=== PATIENT | male | born 1950 | race Caucasian/White ===

== ENCOUNTER → 2017-03-14 | Outpatient (CLI) | payer BC ==
[2017-03-14 13:10] LABS: Blood Urea Nitrogen 13 mg/dL (9-20); Non-African American GFR(MDRD) >60 (>60 ml/min/1.73 sqM)
== END | disposition home or self-care (01) ==
LOC: LABWHC1 12:22
PROVIDERS: ATTEND Physical Medicine & Rehabilitation
DX: N28.9 Disorder of kidney and ureter, unspecified (principal); M51.26 Other intervertebral disc displacement, lumbar region; M47.817 Spondylosis without myelopathy or radiculopathy, lumbosacral region; M54.17 Radiculopathy, lumbosacral region; K21.9 Gastro-esophageal reflux disease without esophagitis; M25.551 Pain in right hip; Z96.641 Presence of right artificial hip joint
CPT/HCPCS: 36415; 82565; 84520

== ENCOUNTER 2017-05-09 00:19 | Observation (INO) | payer BC, MEDICARE ==
[2017-05-09] MEDS ORDERED: ONDANSETRON 4 MG/2 ML VIAL IVP STA (00:40)
[2017-05-09] MEDS ORDERED: MORPHINE SULFATE 4 MG/ML SYRINGE IV STA (00:40)
[2017-05-09] MEDS ORDERED: ASPIRIN 81 MG CHEW PO STA (00:40)
[2017-05-09] MEDS ORDERED: SODIUM CHLORIDE 0.9% 1,000 ML IV STA (00:40)
[2017-05-09] MEDS ORDERED: NITROGLYCERIN OINT 1 INCH/GM PACKET TOPICAL STA (00:40)
--- NOTE | 2017-05-09 00:47 | ED ---
Chest Pain HPI - General Chief Complaint: Chest Pain Stated Complaint: CHEST PAIN Time Seen by Provider: 05/09/17 00:30 Source: patient Mode of arrival: ambulatory Limitations: no limitations - History of Present Illness Initial Comments: 66 years old gentleman has a history of GERD as well as ischemic heart disease he been feeling her chest pain, lost a few days and he also has a history of GERD for lost 30+ years and he felt some pressure in the chest chest pressure and the pain was radiating down his left arm he denies any weakness of the arm. Been nauseous but no vomiting no cold sweats complained about the chest pain gets worse with deep breaths. Denies any fever no chills. He had stent put in about 9 years ago and he had a stress test done about one half years ago - Related Data Home Medications Medication Instructions Recorded Confirmed Aspirin 81 mg PO DAILY 04/08/14 05/09/17 Hydrocodone/Acetaminophen [[place] 1 each PO Q6HR PRN 04/08/14 05/09/17 5-325] Metoprolol Tartrate [Lopressor] 25 mg PO BID 04/08/14 05/09/17 Pravastatin Sodium [Pravachol] 40 mg PO HS 04/08/14 05/09/17 Allergies Allergy/AdvReac Type Severity Reaction Status Date / Time Penicillins Allergy Rash/Hives Verified 05/09/17 00:31 Review of Systems ROS Statement: Those systems with pertinent positive or pertinent negative responses have been documented in the HPI. ROS Other: All systems not noted in ROS Statement are negative. EKG Findings - EKG Comments: EKG Findings:: EKG is sinus bradycardia with a ventricular rate of 59 MI interval is 186 QRS duration is 98 QT/QTc is 4:30/425) EKG reveals some T-wave inversion in lead [address] elevation or ST depression noticed in this EKG Past Medical History Past Medical History: Coronary Artery Disease (CAD), GERD/Reflux, Hypertension, Sleep Apnea/CPAP/BIPAP History of Any Multi-Drug Resistant Organisms: None Reported Past Surgical History: Back Surgery, Heart Catheterization With Stent, Joint Replacement Additional Past Surgical History / Comment(s): TOTAL RT HIP Past Anesthesia/Blood Transfusion Reactions: No Reported Reaction Date of Last Stent Placement:: 2006, X3 STENTS Past Psychological History: No Psychological Hx Reported Smoking Status: Former smoker Past Alcohol Use History: None Reported Past Drug Use History: None Reported General Exam - General Exam Comments Initial Comments: General: The patient is awake and alert, in no distress, and does not appear acutely ill. Skin: Skin is warm and dry and no rashes or lesions are noted. Eye: Pupils are equal, round and reactive to light, extra-ocular movements are intact; there is normal conjunctiva bilaterally. Ears, nose, mouth and throat: There are moist mucous membranes and no oral lesions. Neck: The neck is supple, there is no tenderness or JVD. Cardiovascular: There is a regular rate and rhythm. No murmur, rub or gallop is appreciated. Respiratory: To auscultation bilateral, no wheezing no rhonchi no distress respiratory cannon noticed Gastrointestinal: Tenderness noticed in the epigastric area Back: There is no tenderness to palpation in the midline. There is no obvious deformity. Musculoskeletal: Normal ROM, no tenderness, There is no pedal edema. There is no calf tenderness or swelling. No cords were appreciated. Neurological: CN II-XII intact, Cranial nerves III through XII are intact. There are no obvious motor or sensory deficits. Coordination appears grossly intact. Speech is normal. Psychiatric: Cooperative, appropriate mood & affect, normal judgment. Limitations: no limitations Course Vital Signs 05/09/17 05/09/17 05/09/17 00:26 01:02 01:34 Temperature 99.5 F Pulse Rate 58 L 59 L 58 L Respiratory 16 18 18 Rate Blood Pressure 169/82 153/69 141/69 O2 Sat by Pulse 94 L 99 96 Oximetry Reassessed at 135, his CBC, comprehensive metabolic panel, d-dimer, troponin, chest x-ray all over the normal range. He does have a history of coronary artery disease he had a stent placed 10 years ago. Status post was done 1.5 years ago and he is 66 considering that I think the prudent to put him in with serial cardiac markers and consult cardiology and admitted him under Dr. 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
[2017-05-09 00:52] LABS: Basophils % (A) 1 %; CH 31.1; CHCM 35.5; Eosinophils # (A) 0.2 k/uL (0-0.7); Eosinophils % (A) 3 %; HCT 41.4 % (39.0-53.0); HDW 2.69; HGB 14.8 gm/dL (13.0-17.5); Luc # (Auto) 0.24; Luc % (Auto) 4; Lymphocytes # (A) 2.1 k/uL (1.0-4.8); Lymphocytes % (A) 35 %; MCH 31.5 pg (25.0-35.0); MCHC 35.8 g/dL (31.0-37.0); MCV 88.2 fL (80.0-100.0); Mean Platelet Volume 7.1; Monocytes # (A) 0.6 k/uL (0-1.0); Monocytes % (A) 9 %; Neutrophils % (A) 49 %; WBC 6.1 k/uL (3.8-10.6); WBC (Perox) 5.67
--- NOTE | 2017-05-09 01:00 | XR ---
EXAM: XR Chest, 2 Views CLINICAL HISTORY: Chest pain with LT arm discomfort TECHNIQUE: Frontal and lateral views of the chest. COMPARISON: Chest x-ray 11/26/15 FINDINGS: Lungs: Unremarkable. No consolidation. Pleural space: Unremarkable. No pneumothorax. Heart: Unremarkable. No cardiomegaly. Mediastinum: Unremarkable. Bones/joints: Mild degenerative changes of the spine. IMPRESSION: No acute process.
[2017-05-09 01:05] LABS: ALT 38 U/L (21-72); AST 28 U/L (17-59); Alkaline Phosphatase 67 U/L (38-126); Anion Gap 10 mmol/L; Blood Urea Nitrogen 14 mg/dL (9-20); Calcium 9.9 mg/dL (8.4-10.2); Carbon Dioxide 23 mmol/L (22-30); Chloride 106 mmol/L (98-107); Glucose 94 mg/dL (74-99); Magnesium 2.2 mg/dL (1.6-2.3); Non-African American GFR(MDRD) >60 (>60 ml/min/1.73 sqM); Potassium 4.3 mmol/L (3.5-5.1); Sodium 139 mmol/L (137-145); Total Bilirubin 0.4 mg/dL (0.2-1.3)
[2017-05-09 01:09] LABS: Partial Thromboplastin Time 23.5 sec (22.0-30.0); Prothrombin Time 10.2 sec (9.0-12.0)
[2017-05-09 01:15] LABS: Creatine Kinase 89 U/L (55-170)
[2017-05-09 01:29] LABS: Creatine Kinase MB 0.8 ng/mL (0.0-2.4); Troponin I <0.012 ng/mL (0.000-0.034)
[2017-05-09] MEDS ORDERED: MORPHINE SULFATE 4 MG/ML SYRINGE IV PRN (01:50)
[2017-05-09] MEDS ORDERED: NITROGLYCERIN SL TABS 0.4 MG TAB SUBLINGUAL PRN (01:50)
[2017-05-09] MEDS ORDERED: PANTOPRAZOLE 40 MG/10 ML VIAL IVP STA (01:56)
[2017-05-09] MEDS ORDERED: SODIUM CHLORIDE 0.9% 1,000 ML IV SCH (02:00)
[2017-05-09 02:39] VITALS: BMI 38.0
[2017-05-09] MEDS: HYDROcodone/APAP 5-325MG 1 EACH TAB PO PRN ×2 (02:40→09:09)
[2017-05-09 07:41] LABS: Creatine Kinase 70 U/L (55-170)
[2017-05-09 07:54] LABS: Creatine Kinase MB 0.5 ng/mL (0.0-2.4); Troponin I <0.012 ng/mL (0.000-0.034)
[2017-05-09] MEDS ORDERED: METOPROLOL TARTRATE 25 MG TAB PO SCH (09:00)
[2017-05-09] MEDS ORDERED: ENOXAPARIN 40 MG/0.4 ML SYRINGE SQ SCH (09:00)
[2017-05-09] MEDS ORDERED: PANTOPRAZOLE 40 MG/10 ML VIAL IVP SCH (09:00)
--- NOTE | 2017-05-09 11:20 | NM ---
EXAMINATION TYPE: NM stress cardiolite complete DATE OF EXAM: 05/09/2017 COMPARISON: NONE HISTORY: TECHNIQUE: After the intravenous administration of 9.8 mCi Tc 99m Sestamibi - Rest images obtained 5 0 minutes post injection. The patient exercised using a DAKOTA protocol and 1 minute prior to peak e xercise was injected with 24.8 mCi Tc 99m Sestamibi - Stress images obtained 15 minutes post injectio n. FINDINGS: Targeted heart rate was achieved during performance of the study. 88% maximal heart rate was achieved with 9.5 METS and total exercise time of 8 minutes. Review of stress and rest SPECT images demonstrates mildly diminished perfusion along the inferolater al wall suspected to be in part due to attenuation artifact as there is normal augmentation on gated images. No suspicious area of reversibility seen. Gated analysis shows an estimated left ventricular ejection fraction of 69 %. TID is calculated at 0.77, within normal limits. IMPRESSION: Suspect attenuation artifact along the inferolateral wall. No convincing scintigraphic evidence for r eversible ischemia
[2017-05-09 11:32] VITALS: BP 119/64; PULSE 64; RESP 17; TEMP 98.4
--- NOTE | 2017-05-09 11:54 | P.STRESS ---
- Stress Test Note Stress Test Results/Findings: Exam Performed: NM stress cardiolite complete Exam Date: 05/09/17 Height: 6 ft Weight: 127.006 kg Protocol: sheron cardiolite Stage: 2 Duration of Exercise: 8:00 Resting Heart Rate: 69 Resting Blood Pressure: 144/86 Maximum Achieved Heart Rate: 137 Maximum Achieved Blood Pressure: 144/86 85% PMHR: 132 100% PMHR: 155 METS: 9.5 Technologist Comment: Stress Test Results/Findings: Baseline rhythm is sinus mechanism, poor R-wave progression. Patient exercised for 8 minutes reaching a peak rate of beats per minute which is equal to 88% maximum predicted heart rate. EKG monitoring revealed no evidence of diagnostic ST segment changes. Cardiolite was injected at peak exercise. Impression: 1. Average exercise tolerance with normal EKG response. 2. Nuclear images will be reported separately.
[2017-05-09 13:06] LABS: Creatine Kinase 72 U/L (55-170)
[2017-05-09 13:15] LABS: Creatine Kinase MB 0.5 ng/mL (0.0-2.4); Troponin I <0.012 ng/mL (0.000-0.034)
[2017-05-09] MEDS ORDERED: PRAVASTATIN SODIUM 40 MG TAB PO SCH (21:00)
--- NOTE | 2017-05-10 07:41 | HP ---
CHIEF COMPLAINT: Chest pain. HISTORY OF PRESENT ILLNESS: This is a 66 year old gentleman who presented to the emergency room in the middle of the night with complaint of pain. The patient says that he has some retrosternal chest pain. The patient has also pain in the left arm. The patient has been having this mild symptoms suggestive of reflux for the past couple of days, however, during the night today, he had some discomfort. He got up and he felt dizzy, lightheaded and some continued pain in the left arm. In view of this, he presented to the emergency room. He does have a history of coronary artery disease. The patient at present has been undergoing some treatments for his left arm pain which has been related to left shoulder labrum tear. The patient describes the pain as an achiness in the left arm which has not changed. He does have hsitory of gastroesophageal reflux. Not too long ago he had an EGD which did not reveal any significant pathology. The patient does have history of gastroesophageal reflux. He used to take Pravastat. The patient used to take Ranitidine and Chair Frame Builder recommended that he take a proton pump inhibitor. He feels that since then his symptoms are not as well controlled as when he was taking ( ). He has been recommended to take AcipHex 20 mg once daily which he feels is not helping as much as the Zantac used to help. The patient denied any other associated symptoms of diaphoresis, nausea, vomiting or any GI bleeding. He was evaluated in the emergency room and noted to have negative troponin, EKG old inferior wall IA. The patient is admitted to the hospital for further observation. Past medical history significant for hypertension for the past about 25 years, history of coronary artery disease diagnosed in 2004. He had stents placed in the RCA. He also has been told to have fatty liver in the past. Otherwise, history of gastroesophageal reflux and hiatal hernia. No other history of diabetes, liver disease, CVA, kidney disease, ulcers, TB, hepatitis or rheumatic fever. Past surgical history significant for right knee arthroscopy, right total hip arthroplasty, left lumbosacral micro discectomy, right undescended testicle. surgery. Personal history: The patient used to smoke two packs per day for about five years. Has not smoked for quite a few years now. ALLERGIES TO PENICILLIN WHICH CAUSES A RASH. Alcohol: None. Medications include: 1. Metoprolol 25 b.i.d. 2. Pravastatin 80 daily. 3. Lexapro 20 mg daily. 4. AcipHex 20 mg daily. SOCIAL HISTORY: The patient is , lives with his spouse. He does stay fairly active. FAMILY MEDICAL HISTORY: Father age 86 of CVA. Mother age 98 in adequate health. History of nephrolithiasis. No brothers. Sister age 63 with CA of the lung. Son 45 with history of bipolar disorder and alcohol dependence doing better. His daughter 42 in good health. REVIEW OF SYSTEMS: Neuro: Does have a headache from the nitro. Denies any dizziness, double vision, blurred vision. Did have symptoms of lightheadedness at the time when he had the chest pain during the night. Cardiac: Denies chest pain at present. Presenting symptoms of chest pain. GI: Denies any nausea , vomiting, abdominal pain, diarrhea, constipation, hematochezia, melena. Respiratory: Denies shortness of breath, cough or hemoptysis. Cardiac: Denies palpitations. : No symptoms of dysuria, hematuria, urgency or frequency. Extremities: Denies pain except of the left shoulder and the left arm. Constitutional: No fever or chills. Physical examination: Pleasant gentleman in no distress. Vital signs stable as recorded. Heent: Normocephalic. Neck no JVD. Chest is clear to auscultation and percussion. Cardiac normal S1, S2 with no murmurs, gallops or rubs. Abdomen soft, no palpable masses. Bowel sounds normal. No organomegaly. No abdominal bruits. Extremities revealed equal pulses in both upper and lower extremities. Good pulses. Adequate range of motion in all four extremities except for painful motion at the left shoulder. Laboratory assessment revealed EKG which showed inferior wall infarct. Cardiac enzymes normal. CBC is normal. Chemistry is normal range. ASSESSMENT: 1. Chest pain, probably gastroesophageal reflux related, rule out coronary artery disease. 2. Known history of coronary artery disease. 3. Left shoulder labrum tear. 4. Hyperlipidemia, on medical therapy. PLAN: The patient at present is stable. Continue present medical regimen. The patient will have a stress test done and stress Cardiolite. If it is negative, he will be discharged home. The patient recommended to go back on Zantac. The patient's condition discussed with the patient. Prognosis guarded. MTDD
[2017-05-10] MEDS ORDERED: ASPIRIN 325 MG TAB PO SCH (09:00)
--- NOTE | 2017-05-12 09:10 | DS ---
HISTORY OF PRESENT ILLNESS: This gentleman was admitted to the hospital after being seen in the emergency room with complaint of chest pain. The patient says the pain was also associated in the shoulder and left arm. The patient has been having pain in the left arm due to a tear of the labrum on that shoulder. The patient has been undergoing physical therapy. The patient's pain at this time of admission is the same as prior. The patient for the past could of days has been having some indigestion type of symptoms. However, during the night, he had some heartburn and associated with that felt lightheaded. In view of that, he presented to the emergency room. ER evaluation reveals no evidence of any acute MA. The patient's EKG is stable as previous with previous inferior myocardial infarction. Cardiac enzymes are negative. The patient apparently admitted for observation. The patient's cardiac enzymes, second enzymes were also negative. The patient in view of this underwent a stress test which was reported as negative. In view of the above findings, the patient was discharged home to continue home medications. The patient explained that the symptoms were more likely to be gastroesophageal reflux. He has had an EGD within the last year. The patient recommended to take Omeprazole 20 mg daily and Zantac 150 mg at bedtime. He had been placed on AcipHex by his pot washer. The patient feels his AcipHex was not very effective. He has continued his cardiac medications. The patient will follow up in the outpatient with orthopedics regarding his left shoulder. He will follow up with me in about a week. The patient's condition stable at the time of discharge. Prognosis guarded. MTDD
== END 2017-05-09 13:07 | disposition home or self-care (01) ==
LOC: EC 00:19 → 3OBS 01:48
PROVIDERS: ADMIT Internal Medicine; ATTEND Internal Medicine
DX: R07.9 Chest pain, unspecified (principal); R42 Dizziness and giddiness; K21.9 Gastro-esophageal reflux disease without esophagitis; S43.402A Unspecified sprain of left shoulder joint, initial encounter; E78.5 Hyperlipidemia, unspecified; Z79.82 Long term (current) use of aspirin; Z79.899 Other long term (current) drug therapy; Z88.0 Allergy status to penicillin; I25.10 Atherosclerotic heart disease of native coronary artery without angina pectoris; I10 Essential (primary) hypertension; G47.30 Sleep apnea, unspecified; Z99.89 Dependence on other enabling machines and devices; Z95.5 Presence of coronary angioplasty implant and graft; Z87.891 Personal history of nicotine dependence; Z82.3 Family history of stroke; X58.XXXA Exposure to other specified factors, initial encounter
CPT/HCPCS: 96361 ×2; 96374; 96375 ×3; 99285; 96376; 36415; 93005; 93017; 85379; 83880; 80053; 82550; 82553; 83735; 84484; 85025; 85610; 85730; 71020; 78452; G0378; A9500; J2270; J2405; C9113

== ENCOUNTER → 2018-03-12 | Outpatient (CLI) | payer BC, MEDICARE ==
[2018-03-12 13:39] LABS: Appearance,Urine Clear (Clear); Bilirubin,Urine Negative (Negative); Blood,Urine Negative (Negative); Color,Urine Yellow; Glucose,Urine (UA) Negative (Negative); Ketones,Urine Negative (Negative); Leukocyte Esterase,Urine Negative (Negative); Nitrite,Urine Negative (Negative); Protein,Urine Negative (Negative); Specific Gravity,Urine 1.013 (1.001-1.035); Urobilinogen,Urine <2.0 mg/dL (<2.0)
[2018-03-12 13:47] LABS: HCT 40.9 % (39.0-53.0); MCH 30.7 pg (25.0-35.0); MCHC 34.2 g/dL (31.0-37.0); MCV 89.7 fL (80.0-100.0); Mean Platelet Volume 6.7; Platelet Count 197 k/uL (150-450); RBC 4.56 m/uL (4.30-5.90); RDW 12.7 % (11.5-15.5); WBC 5.4 k/uL (3.8-10.6)
[2018-03-12 13:51] LABS: ALT 36 U/L (21-72); AST 26 U/L (17-59); Albumin 4.5 g/dL (3.5-5.0); Alkaline Phosphatase 66 U/L (38-126); Anion Gap 12 mmol/L; Blood Urea Nitrogen 14 mg/dL (9-20); Calcium 9.4 mg/dL (8.4-10.2); Carbon Dioxide 28 mmol/L (22-30); Chloride 102 mmol/L (98-107); Glucose 85 mg/dL (74-99); Potassium 4.8 mmol/L (3.5-5.1); Sodium 142 mmol/L (137-145); Total Bilirubin 0.4 mg/dL (0.2-1.3)
[2018-03-12 13:55] LABS: Partial Thromboplastin Time 23.4 sec (22.0-30.0); Prothrombin Time 10.2 sec (9.0-12.0)
== END | disposition home or self-care (01) ==
LOC: LABPAT 12:47
PROVIDERS: ATTEND Orthopaedic Surgery
DX: Z01.812 Encounter for preprocedural laboratory examination (principal); Z01.818 Encounter for other preprocedural examination
CPT/HCPCS: 36415; 80053; 81003; 85027; 85610; 85730; 87070

== ENCOUNTER 2018-03-19 07:15 | Inpatient (IN) | payer BC, MEDICARE ==
[2018-03-11 13:16] VITALS: BMI 24.4
[~2018-03-19 07:15] MED LIST: ACETAMINOPHEN TAB 500 MG TAB PO ONE; DEXAMETHASONE SOD PHOSPHATE 10 MG/ML 1 ML VIAL IV ONE; MELOXICAM 7.5 MG TAB PO ONE; MIDAZOLAM 2 MG/2 ML VIAL IV PRN; ONDANSETRON 4 MG/2 ML VIAL IVP ONE; TRANEXAMIC ACID 1,000 MG in SODIUM CHLORIDE 0.9% 50 ML IVPB ONE; ceFAZolin IN SWFI 2 GM/20 ML SYRINGE IVP ONE; fentaNYL (PF) 50 MCG/ML 2 ML AMP IV PRN
[2018-03-19] MEDS ORDERED: LIDOCAINE 1% 20 ML VIAL (10MG/ML) FOR IV START INTRADERMA ONE (07:49)
[2018-03-19] MEDS: LACTATED RINGERS 1,000 ML IV SCH (08:02)
[2018-03-19] MEDS ORDERED: HYDROmorphone 1 MG/ML 1 ML SYRINGE IVP PRN (09:01)
[2018-03-19] MEDS ORDERED: HYDROcodone/APAP 5-325MG 1 EACH TAB PO PRN (09:01)
[2018-03-19] MEDS ORDERED: MAGNESIUM HYDROXIDE 2,400 MG/10 ML CUP PO PRN (09:01)
[2018-03-19] MEDS ORDERED: ONDANSETRON 4 MG/2 ML VIAL IVP PRN (09:01)
[2018-03-19] MEDS ORDERED: DIAZEPAM 5 MG TAB PO PRN ×2 (09:01)
[2018-03-19] MEDS ORDERED: NALOXONE 0.4 MG/ML 1 ML VIAL IV PRN (09:01)
[2018-03-19] MEDS ORDERED: HYDROmorphone 0.5 MG/0.5 ML SYRINGE IVP PRN ×3 (09:01)
[2018-03-19] MEDS ORDERED: fentaNYL (PF) 50 MCG/ML 2 ML AMP ONE (09:32)
[2018-03-19] MEDS ORDERED: TRANEXAMIC ACID 1,000 MG/10 ML VIAL ONE (09:32)
[2018-03-19] MEDS ORDERED: HEPARIN SODIUM,PORCINE 10,000 UNIT/ML 1 ML VIAL ONE (09:32)
[2018-03-19] MEDS ORDERED: SODIUM CHLORIDE 0.9% 100 ML BAG ONE (09:32)
[2018-03-19] MEDS ORDERED: MIDAZOLAM 2 MG/2 ML VIAL ONE (09:32)
[2018-03-19] MEDS ORDERED: PROPOFOL 10 MG/ML 20 ML VIAL IV ONE (09:32)
[2018-03-19] MEDS ORDERED: diphenhydrAMINE 50 MG/ML 1 ML VIAL ONE (09:32)
[2018-03-19] MEDS ORDERED: LACTATED RINGERS 1,000 ML BAG IV ONE (09:32)
[2018-03-19] MEDS: ROPIVACAINE 246.25 MG, EPINEPHrine 0.5 MG, KETOROLAC 30 MG, cloNIDine HCL/PF 80 MCG, WA... MISCELLANE ONE ×10 (09:33→10:55)
[2018-03-19] MEDS ORDERED: LACTATED RINGERS 1,000 ML IV ONE (10:45)
--- NOTE | 2018-03-19 12:23 | XR ---
EXAMINATION TYPE: XR Hip Limited LT DATE OF EXAM: 03/19/2018 COMPARISON: NONE HISTORY: Postop left hip replacement TECHNIQUE: AP left hip FINDINGS: Femoral component and acetabular component are evident. Postsurgical changes are within the soft tissues. No acute fractures are evident. IMPRESSION: 1. No acute fractures post left hip replacement.
--- NOTE | 2018-03-19 13:10 | FL ---
Fluoroscopy INDICATION: Pain FINDINGS: Fluoroscopy time: 42 seconds. Images obtained: 2. IMPRESSIONS: 1. Documentation of fluoroscopy.
--- NOTE | 2018-03-19 14:00 | P.OP ---
Date of Procedure: 03/19/18 Preoperative Diagnosis: Severe osteoarthritis left hip Postoperative Diagnosis: Severe osteoarthritis left hip Procedure(s) Performed: Left total hip arthroplasty with a direct anterior approach Implants: Bonilla and nephew Polarstem size 3 standard [employer]illa [employer] Nephew R3, 3 hole acetabular shell, 54 mm [employer]illa [employer]hew reflection 6.5 mm cancellus screw, 25 mm 2 [employer]illa [employer]hew R3, XLPE 20 acetabular liner Bonilla [employer] Nephew Oxinium femoral head 36 m, +8 All components were press-fit. The articulation is Oxinium on polyethylene. Anesthesia: spinal Surgeon: Domingo Lara Debt Recovery Officer #1: Kaylin Addison Estimated Blood Loss (ml): 450 (180 mL returned with Cell Saver) Pathology: other (Femoral head) Condition: stable Disposition: PACU Indications for Procedure: After failure of conservative treatment we discussed the surgical and nonsurgical treatment options at length. Patient wishes to proceed with a total hip arthroplasty with a direct anterior approach. Complications specific to this procedure were discussed at length, including but not limited to infection, leg length discrepancy, dislocation, and nerve injury. Patient is aware of all these complications and informed consent was obtained Operative Findings: The operative findings are consistent with severe osteoarthritis of left hip Description of Procedure: Patient was seen and evaluated in the preoperative area, consent was reviewed, and the surgical site was marked with a skin marker. Patient was then brought to the operating room and given prophylactic antibiotics intravenously. 1 g of Tranexamic acid was also given. A spinal anesthetic was administered by the anesthesia department. The patient was then placed on the Dunbar table with the bony prominences well-padded. The hip area was then prepped and draped in usual sterile fashion. A universal timeout was then performed, which confirmed the patient's name, surgical site, ALLERGIES, and procedure being performed. Next the incision site was located at 1 cm distal and 1 cm lateral to the anterior superior iliac spine. The skin and subcutaneous tissues were sharply incised. Incision was carefully dissected down to the fascia overlying the tensor fascia young muscle. This fascia was then incised in line with the incision. Next, using blunt finger dissection, the tensor fascia young muscle was dissected off its investing fascia. The muscle was then carefully retracted laterally with a cobra retractor over the lateral neck of the femur. Next, the circumflex vessels were identified and cauterized using the AquaMantis device. The anterior hip capsule was then exposed. The capsule was then opened and an inverted T fashion. Cobra retractors were then placed intracapsularly. The proximal femur was then visualized. The femoral neck was then osteotomized appropriate level above the lesser trochanter. Small amount of traction was placed with the Dunbar table. A small wedge of bone was then removed from the remaining femoral head. Next, using a corkscrew femoral head was easily removed from the acetabulum. On gross visual inspection, the femoral head had complete loss of articular cartilage in multiple periarticular osteophytes. Attention was then turned to the acetabulum. the acetabulum was exposed and any remaining labrum was excised. Sequential reaming of the acetabulum was performed using fluoroscopic guidance. When the appropriate size was reached, a trial was then placed. The position and fit of the trial was checked with fluoroscopy. The trial was then removed. Then, using fluoroscopic guidance, the final implant was impacted at 20 of anteversion and 40 of abduction, and fully seated in the acetabulum. 2 screws were then placed in the acetabulum. Again fluoroscopy was used to check position of the screws. Next, the liner was then impacted, with a 20 elevated liner located in the anterior superior quadrant. Component locking was confirmed. Attention was then directed to the femur. With the aid of the Dunbar table, the femur was externally rotated to approximately 130, extended, and abducted under the opposite leg. A side hook was then placed under the proximal femur, and the side hook elevator was used to elevate the proximal femur. Retractors were then placed. A capsular release was performed, as well as a release of the conjoined tendon, which afforded excellent visualization of the proximal femur. Next, a box osteotome was used to lateralize the proximal femur. A back hand was then used to locate the femoral canal. Sequential broaching was then performed with appropriate size which afforded excellent fixation in the proximal femur. A trial was then placed with appropriate head and neck, and the hip was gently reduced with the aid of the Dunbar table. Fluoroscopy was then used to check position of the components, as well as to ensure equal leg lengths. The hip was then gently dislocated and the trials were then removed. Final implants were then impacted and the hip was again reduced. Final fluoroscopic x-rays confirmed that the components were in anatomic position, as well as equal leg lengths. The hip was also taken through range of motion, and found to be stable. The hip was then copiously irrigated with antibiotic solution with pulsatile lavage. The hip was then irrigated with Irrisept solution. The soft tissues were then injected with a ropivacaine solution, which consisted of 246.25 mg of ropivacaine, 0.5 mg of epinephrine, 30 mg of Toradol, 80 g of clonidine, and 48.45 mL of sterile water, for a total of 100 mL of fluid injected. A second dose of 1 g of Tranexamic acid was also given. the fascia was then closed with 2-0 strata fix suture. The subcutaneous tissue was closed with 3-0 Vicryl. The subcuticular tissue was closed with 3-0 strata fix suture. The skin was then closed with Dermabond glue and a sterile silver dressing. The patient was then transferred to the recovery room in stable condition. The assistant site manager SAUL Ojeda was required due to the complexity of surgery, and the need for skilled educational/development assistant for positioning, draping, exposure, retraction, and closure of the wound.
[2018-03-19] MEDS: HYDROcodone/APAP 5-325MG 1 EACH TAB PO PRN ×2 (14:46→21:04)
[2018-03-19] MEDS: hydrOXYzine PAMOATE 25 MG CAP PO PRN ×2 (14:47→21:04)
[2018-03-19] MEDS: ceFAZolin IN SWFI 2 GM/20 ML SYRINGE IVP SCH ×2 (15:54→23:12)
[2018-03-19] MEDS: SODIUM CHLORIDE 0.9% 1,000 ML IV SCH (20:41)
[2018-03-19] MEDS ORDERED: PRAVASTATIN SODIUM 40 MG TAB PO SCH (21:00)
[2018-03-19] MEDS ORDERED: PANTOPRAZOLE 40 MG TABLET PO SCH (21:00)
[2018-03-19] MEDS ORDERED: ESCITALOPRAM 20 MG TAB PO SCH (21:00)
[2018-03-19] MEDS ORDERED: ASPIRIN 325 MG TAB PO SCH (21:00)
[2018-03-19] MEDS ORDERED: SENNOSIDES-DOCUSATE SODIUM 1 EACH TAB PO SCH (21:00)
[2018-03-19] MEDS: METOPROLOL TARTRATE 25 MG TAB PO SCH (21:05)
--- NOTE | 2018-03-19 21:48 | CONS ---
CONSULTATION REASON FOR CONSULTATION: Postoperative medical management. HISTORY OF PRESENT ILLNESS: This is a 67-year-old who was admitted to the hospital after undergoing left total hip arthroplasty with an anterior approach. The patient is doing well, lying in bed with no symptoms or any distress. Denies any pain. He has a history of coronary artery disease, stable with no symptoms of angina. He has a history of gastroesophageal reflux. PAST MEDICAL HISTORY: As mentioned above, coronary artery disease and gastroesophageal reflux. He also has degenerative arthritis. REVIEW OF SYSTEMS: NEURO: Denies any headaches, dizziness. PSYCH: No anxiety. CARDIAC: No chest pain, angina, palpitation. RESPIRATORY: Denies shortness of breath, cough, hemoptysis. GI: No nausea, vomiting, abdominal pain, diarrhea. : No symptoms of dysuria, hematuria, urgency, frequency. EXTREMITIES: Denies pain. CONSTITUTIONAL: No fever or chills. PHYSICAL EXAMINATION: Pleasant gentleman in no distress. VITAL SIGNS: Temperature 97.6, pulse 68, respirations 15, blood pressure 110/71, pulse ox 93% on room air. HEENT: Normocephalic. NECK: No JVD. CHEST: Clear to auscultation. CARDIAC: Normal S1, S2 with no gallops or murmurs. ABDOMEN: Soft. No palpable masses. Bowel sounds normal. No organomegaly. No abdominal bruits. Extremities reveal no edema. Good pulses, both upper extremities, and pedal pulses. Neurologically awake, alert, oriented with well-coordinated movements, upper extremities. LABORATORY ASSESSMENT: None at present. ASSESSMENT: 1. Coronary artery disease, stable. 2. Gastroesophageal reflux with no symptoms. 3. Status post left hip arthroplasty. PLAN: Patient is stable. Continue present medical regimen. Patient's condition discussed with the patient. Prognosis guarded. Medications reconciled. MMODL / IJN: [id number] /
[2018-03-20] MEDS: SODIUM CHLORIDE 0.9% 1,000 ML IV SCH (02:04)
[2018-03-20] MEDS: hydrOXYzine PAMOATE 25 MG CAP PO PRN ×2 (03:22→08:25)
[2018-03-20] MEDS: HYDROcodone/APAP 5-325MG 1 EACH TAB PO PRN ×2 (03:22→08:25)
[2018-03-20] MEDS: LACTATED RINGERS 1,000 ML IV SCH (04:09)
--- NOTE | 2018-03-20 07:10 | P.PN ---
Subjective Progress Note Date: 03/20/18 History present illness: This 67-year-old gentleman was admitted to the hospital and undergone a left total hip arthroplasty yesterday. The patient is doing extremely well. He denies much pain his been up out of bed to the bathroom a couple of times without any difficulty. He does use a walker. Patient does have underlying history of coronary artery disease and obstructive sleep apnea. Has had no symptoms of chest pain or angina. No palpitations. The patient does have a history of gastroesophageal reflux stable with no symptoms. REVIEW OF SYSTEMS: Neuro: Denies any headaches dizziness. Psych: Denies anxiety depression feels oriented. Cardiac: Denies chest pain and angina palpitations. Respiratory: Denies shortness of breath cough. GI: Denies nausea vomiting or abdominal pain. No diarrhea or constipation, no bowel movement yet. : Denies dysuria hematuria. Extremities: Minimal discomfort left hip. No edema. Skin: Intact. Constitutional: No fever, chills. Objective - Vital Signs Vital signs: Vital Signs Temp 97.4 F L 03/20/18 02:00 Pulse 77 03/20/18 02:00 Resp 18 03/20/18 02:00 BP 111/58 03/20/18 02:00 Pulse Ox 93 L 03/20/18 02:00 Intake & Output 03/19/18 03/20/18 03/20/18 18:59 06:59 18:59 Intake Total 1100 1040 Output Total 450 Balance 650 1040 Weight 81.647 kg Intake: IV 1100 Intake, IV Titration 1040 Amount Sodium Chloride 0.9% 1, 1040 000 ml @ 65 mls/hr IV . [id number] [facility] Rx#:[id number] Output: Estimated Blood Loss 450 Other: # Voids 3 PHYSICAL EXAMINATION: Cooperative, at present in no acute distress. HEENT: Neck supple. No JVD. Chest: Clear to auscultation percussion. Cardiac: Normal S1-S2 no gallops no murmur . Abdomen: Soft bowel sounds present. Extremities: No edema no tenderness Neurologically: Awake, alert, oriented with well-coordinated movements with some limitation left hip. Assessment and Plan Assessment: ASSESSMENT: 1. Coronary artery disease stable. 2. Obstructive sleep apnea control on CPAP. 3. History of esophageal reflux disease with no active symptoms controlled on medical therapy. 4. Degenerative arthritis. 5. Status post left hip arthroplasty. PLAN: Continue present medical regimen. Potential discharge him today. Patient to continue his medications as prior to admission.
[2018-03-20 07:43] LABS: Basophils % (A) 0 %; Eosinophils % (A) 0 %; HCT 34.1 % (39.0-53.0); HGB 11.3 gm/dL (13.0-17.5); Lymphocytes # (A) 0.9 k/uL (1.0-4.8); Lymphocytes % (A) 10 %; MCH 30.3 pg (25.0-35.0); MCHC 33.1 g/dL (31.0-37.0); MCV 91.5 fL (80.0-100.0); Mean Platelet Volume 7.5; Monocytes # (A) 0.7 k/uL (0-1.0); Monocytes % (A) 8 %; Neutrophils # (A) 7.1 k/uL (1.3-7.7); Neutrophils % (A) 80 %; Platelet Count 146 k/uL (150-450); RBC 3.72 m/uL (4.30-5.90); RDW 12.8 % (11.5-15.5); WBC 8.9 k/uL (3.8-10.6)
[2018-03-20 08:21] VITALS: BP 128/65; PULSE 58; RESP 16; TEMP 98.8
[2018-03-20] MEDS: METOPROLOL TARTRATE 25 MG TAB PO SCH (08:28)
[2018-03-20] MEDS ORDERED: MELOXICAM 7.5 MG TAB PO SCH (09:00)
[2018-03-20] MEDS ORDERED: ASPIRIN 81 MG PO SCH (09:00)
[2018-03-20] MEDS ORDERED: FOLIC ACID 1 MG TAB PO SCH (09:00)
--- NOTE | 2018-03-20 09:13 | P.DS ---
Providers Date of admission: 03/19/18 07:15 Expected date of discharge: 03/20/18 Attending physician: Domingo aLra Consults: 03/19/18 09:01 Consult Physician Routine Consulting Provider: Sanju Latif Consult Reason/Comments: medical management Do you want consulting provider notified?: Yes Primary care physician: Sanju Latif - Discharge Diagnosis(es) (1) Primary osteoarthritis of left hip Current Visit: Yes Status: Acute (2) S/P total hip arthroplasty Current Visit: Yes Status: Acute Hospital Course: This is a 67-year-old male with known history of degenerative arthritis of the left hip. The patient presents for evaluation. After discussion and consideration patient elects to proceed with total hip arthroplasty. The patient is seen preoperatively by Dr. Lara and medically cleared for surgery by their primary care physician. Patient is admitted to [facility] on 03/19/2018 for total hip arthroplasty. The procedures performed without complication or sequelae. The patient is doing well postoperatively. Labs and vital signs are stable on day of discharge. On day of discharge patient's hip incision is healing well. There is minimal erythema. There is no drainage noted at this time. There is minimal soft tissue swelling to the hip and thigh. Patient has full foot and ankle motion without difficulty or pain. Neurovascular status to the left lower extremity is intact. Patient is discharged home in good condition. Please see med rec for accurate list of home medications. Plan - Discharge Summary Discharge Rx Participant: Yes New Discharge Prescriptions: New Aspirin 325 mg PO BID #60 tab HYDROcodone/APAP 7.5-325MG [[place] 7.5-325] 1 tab PO Q4-6H PRN #60 tab PRN Reason: Pain Sennosides [Senokot] 1 tab PO BID #60 tablet No Action Pravastatin Sodium [Pravachol] 40 mg PO HS Metoprolol Tartrate [Lopressor] 25 mg PO BID Aspirin 81 mg PO DAILY Hydrocodone/Acetaminophen [[place] 10-325] 1 tab PO QID PRN PRN Reason: Pain Folic Acid 0.8 mg PO DAILY [place]-3 Fatty Acids/Fish Oil [Fish Oil 1,000 mg Softgel] 1 cap PO DAILY Escitalopram [Lexapro] 20 mg PO HS Lansoprazole [Prevacid] 15 mg PO HS Discharge Medication List Aspirin 81 mg PO DAILY 04/08/14 [History] Metoprolol Tartrate [Lopressor] 25 mg PO BID 04/08/14 [History] Pravastatin Sodium [Pravachol] 40 mg PO HS 04/08/14 [History] Escitalopram [Lexapro] 20 mg PO HS 03/11/18 [History] Folic Acid 0.8 mg PO DAILY 03/11/18 [History] Hydrocodone/Acetaminophen [[place] 10-325] 1 tab PO QID PRN 03/11/18 [History] Lansoprazole [Prevacid] 15 mg PO HS 03/11/18 [History] [place]-3 Fatty Acids/Fish Oil [Fish Oil 1,000 mg Softgel] 1 cap PO DAILY [History] Aspirin 325 mg PO BID #60 tab 03/20/18 [Rx] HYDROcodone/APAP 7.5-325MG [[place] 7.5-325] 1 tab PO Q4-6H PRN #60 tab 03/20/18 [ Rx] Sennosides [Senokot] 1 tab PO BID #60 tablet 03/20/18 [Rx] Follow up Appointment(s)/Referral(s): Domingo Lara DO [Doctor of Osteopathic Medicine] - 2 Weeks Activity/Diet/Wound Care/Special Instructions: Weightbearing as tolerated with walker Leave dressing intact. Dressing may be removed by home care nurse in 10 days. May shower with dressing on. Follow-up with [facility] in 2 weeks, please call with any questions or concerns [phone] Discharge Disposition: HOME WITH HOME HEALTH SERVICES
[2018-03-20] MEDS ORDERED: HYDROcodone/APAP 7.5-325MG 1 EACH TAB PO PRN (09:48)
== END 2018-03-20 14:20 | disposition home health service (06) | DRG 470 ==
LOC: 2ORMAIN 07:15 → 3SUR 14:05
PROVIDERS: ADMIT Orthopaedic Surgery; ATTEND Orthopaedic Surgery
PROC: 30233N0 Transfusion of Autologous Red Blood Cells into Peripheral Vein, Percutaneous Approach (ICD-10-PCS; 2018-03-19)
PROC: 0SRB06A Replacement of Left Hip Joint with Oxidized Zirconium on Polyethylene Synthetic Substitute, Uncemented, Open Approach (ICD-10-PCS; principal; 2018-03-19 09:20)
DX: M16.12 Unilateral primary osteoarthritis, left hip (principal); G47.33 Obstructive sleep apnea (adult) (pediatric); I25.10 Atherosclerotic heart disease of native coronary artery without angina pectoris; K21.9 Gastro-esophageal reflux disease without esophagitis; I10 Essential (primary) hypertension; K76.0 Fatty (change of) liver, not elsewhere classified; E78.5 Hyperlipidemia, unspecified; E66.9 Obesity, unspecified; Z68.24 Body mass index [BMI] 24.0-24.9, adult; K58.9 Irritable bowel syndrome, unspecified; R12 Heartburn; G89.29 Other chronic pain; M54.89 Other dorsalgia; F41.9 Anxiety disorder, unspecified; Z87.891 Personal history of nicotine dependence; Z79.82 Long term (current) use of aspirin; Z79.899 Other long term (current) drug therapy; Z88.0 Allergy status to penicillin; Z96.641 Presence of right artificial hip joint
CPT/HCPCS: 73501; 85025; 86850; 86891; 86900; 86901; 88300

== ENCOUNTER → 2018-04-22 | Outpatient (CLI) | payer BC, MEDICARE ==
[2018-04-22 10:39] LABS: HCT 37.3 % (39.0-53.0); HGB 12.2 gm/dL (13.0-17.5); MCH 30.2 pg (25.0-35.0); MCHC 32.6 g/dL (31.0-37.0); MCV 92.8 fL (80.0-100.0); Mean Platelet Volume 7.1; Platelet Count 180 k/uL (150-450); RBC 4.02 m/uL (4.30-5.90); RDW 13.5 % (11.5-15.5); WBC 3.3 k/uL (3.8-10.6)
--- NOTE | 2018-04-22 11:55 | XR ---
EXAMINATION TYPE: XR chest 2V DATE OF EXAM: 04/22/2018 COMPARISON: 05/09/2017 INDICATION: Short of breath TECHNIQUE: Frontal and lateral views of the chest are obtained. FINDINGS: The heart size is normal. The pulmonary vasculature is normal. The lungs are clear. IMPRESSION: 1. No acute pulmonary process.
== END | disposition home or self-care (01) ==
LOC: LABWHC1 10:14
PROVIDERS: ATTEND Internal Medicine Cardiovascular Disease
DX: R06.02 Shortness of breath (principal)
CPT/HCPCS: 36415; 71046; 85027

== ENCOUNTER → 2018-05-03 | Outpatient (CLI) | payer BC, MEDICARE ==
[2018-05-03 07:23] LABS: Blood Urea Nitrogen 20 mg/dL (9-20)
--- NOTE | 2018-05-03 09:47 | CT ---
EXAMINATION TYPE: CT angio chest DATE OF EXAM: 05/03/2018 COMPARISON: Non- HISTORY: 67-year-old male with old RI, Angina TECHNIQUE: Contiguous axial scanning of the chest performed with IV Contrast, patient injected with 1 00 ml mL of Isovue 300. Coronal/sagittal MIP reconstructions performed. CT DLP: 585 mGycm Automated exposure control for dose reduction was used. FINDINGS: Heart borderline enlarged without pericardial effusion. Coronary vessel calcifications are present in remarkable for coronary artery disease. Ectatic ascending aorta 3.6 cm. There is conventional arch vessel branching anatomy. Scattered nonenlarged mediastinal lymph nodes. No thoracic lymphadenopathy by CT size criteria. Satisfactory opacification of the pulmonary nodule system only mild diffuse respiratory motion artifa ct causing limitation in assessment. No pulmonary embolus is seen. Feit-gi-lxycpnjm diffuse bronchial wall thickening and some hazy dependent atelectasis in the posteri or lower lobes. No consolidation or pleural effusion. Tiny hiatal hernia. Subcentimeter hypodensity right hepatic lobe too small for accurate CT characterization, probable tin y cyst. Endplate spondylosis lower thoracic spine. IMPRESSION: 1. BORDERLINE CARDIOMEGALY WITH CAD. 2. RESPIRATORY MOTION ARTIFACT CAUSING SOME LIMITATIONS. NO DEFINITE PULMONARY EMBOLUS. 3. MILD TO MODERATE DIFFUSE BRONCHIAL WALL THICKENING CAN BE SEEN WITH BRONCHITIS OR CHRONIC ASTHMA. 4. TINY HIATAL HERNIA.
== END | disposition home or self-care (01) ==
LOC: RADCTMAIN 06:34
PROVIDERS: ATTEND Internal Medicine Cardiovascular Disease
DX: I25.118 Atherosclerotic heart disease of native coronary artery with other forms of angina pectoris (principal); I51.7 Cardiomegaly; J98.09 Other diseases of bronchus, not elsewhere classified; I26.99 Other pulmonary embolism without acute cor pulmonale; I25.2 Old myocardial infarction
CPT/HCPCS: 82565; 84520; 71275; 36415; Q9967

== ENCOUNTER 2018-10-23 07:53 | Day surgery (SDC) | payer BC, MEDICARE ==
[2018-10-16 12:15] VITALS: BMI 37.3
[~2018-10-23 07:53] MED LIST changes: -ACETAMINOPHEN TAB 500 MG TAB PO ONE; -DEXAMETHASONE SOD PHOSPHATE 10 MG/ML 1 ML VIAL IV ONE; +LACTATED RINGERS 1,000 ML IV SCH; -MELOXICAM 7.5 MG TAB PO ONE; -MIDAZOLAM 2 MG/2 ML VIAL IV PRN; -ONDANSETRON 4 MG/2 ML VIAL IVP ONE; -TRANEXAMIC ACID 1,000 MG in SODIUM CHLORIDE 0.9% 50 ML IVPB ONE; -ceFAZolin IN SWFI 2 GM/20 ML SYRINGE IVP ONE; -fentaNYL (PF) 50 MCG/ML 2 ML AMP IV PRN
[2018-10-23 08:19] VITALS: TEMP 98.5
[2018-10-23] MEDS ORDERED: MIDAZOLAM 2 MG/2 ML VIAL ONE (08:30)
[2018-10-23] MEDS ORDERED: PROPOFOL 10 MG/ML 20 ML VIAL IV ONE (08:30)
[2018-10-23] MEDS ORDERED: fentaNYL (PF) 50 MCG/ML 2 ML AMP ONE (08:30)
--- NOTE | 2018-10-23 08:44 | P.PCN ---
Date of Procedure: 10/23/18 Procedure(s) Performed: BRIEF HISTORY: Patient is a 67-year-old, pleasant, white male, scheduled for an upper endoscopy as a part of evaluation of heartburn passive regurgitation of 20 years duration. He has been on Prilosec 20 mg daily as well as Zantac as needed. Lately has been having worsening epigastric discomfort and hence he scheduled for an upper endoscopy to evaluate further.. PROCEDURE PERFORMED: Esophagogastroduodenoscopy with biopsy. PREOPERATIVE DIAGNOSIS: Long-standing history of GERD/epigastric pain. IV sedation per anesthesia. PROCEDURE: After informed consent was obtained, the patient was brought into the endoscopy unit. IV sedation was administered by Anesthesia under continuous monitoring. Initially the Olympus GIF-140 video endoscope was inserted into the mouth. Esophagus intubated without any difficulty. It was gradually advanced into the stomach and duodenum and carefully examined. The bulb and the second part of the duodenum appeared normal. The scope at this time was withdrawn to the stomach, adequately insufflated with air, and upon careful examination, mucosa of the antrum had mild patchy areas of erythema in the prepyloric area and biopsies were done from this area. The body, cardia and the fundus appeared normal. The scope was then withdrawn into the esophagus. The GE junction was located at 39 cm from the incisors. Small sliding-type hiatal hernia noted. The esophagus appeared normal. There were no erosions or ulcerations seen and the patient tolerated the procedure well. IMPRESSION: 1. Small sliding Hiatal hernia. No evidence of esophagitis or Ngo's esophagus 2. Mild antral gastritis RECOMMENDATIONS: The findings of this examination were discussed with the patient as well as her family. She worked he was advised to follow with the biopsy results. He will continue with the Prilosec 20 mg daily and Zantac as needed and follow antireflux measures..
[2018-10-23 09:02] VITALS: BP 114/67; PULSE 55; RESP 18
== END 2018-10-23 09:17 | disposition home or self-care (01) ==
LOC: ORWHC2ENDO 07:53
PROVIDERS: ATTEND Internal Medicine Gastroenterology
DX: K29.50 Unspecified chronic gastritis without bleeding (principal); K44.9 Diaphragmatic hernia without obstruction or gangrene; K21.9 Gastro-esophageal reflux disease without esophagitis; I25.10 Atherosclerotic heart disease of native coronary artery without angina pectoris; I10 Essential (primary) hypertension; E78.5 Hyperlipidemia, unspecified; G47.33 Obstructive sleep apnea (adult) (pediatric); Z95.5 Presence of coronary angioplasty implant and graft; Z79.82 Long term (current) use of aspirin; Z79.899 Other long term (current) drug therapy; Z88.0 Allergy status to penicillin; Z87.891 Personal history of nicotine dependence
CPT/HCPCS: 88305; 43239; J2250; J3010; J2704

== ENCOUNTER → 2019-02-26 | Outpatient (CLI) | payer BC, MEDICARE ==
[2019-02-26 09:51] LABS: ALT 34 U/L (21-72); AST 21 U/L (17-59); Albumin 4.4 g/dL (3.5-5.0); Alkaline Phosphatase 67 U/L (38-126); Anion Gap 5 mmol/L; Blood Urea Nitrogen 15 mg/dL (9-20); Calcium 9.2 mg/dL (8.4-10.2); Carbon Dioxide 28 mmol/L (22-30); Chloride 106 mmol/L (98-107); Glucose 94 mg/dL (74-99); Potassium 4.5 mmol/L (3.5-5.1); Sodium 139 mmol/L (137-145); Total Bilirubin 0.6 mg/dL (0.2-1.3); Total Protein 6.9 g/dL (6.3-8.2)
[2019-02-26 09:53] LABS: Partial Thromboplastin Time 24.3 sec (22.0-30.0); Prothrombin Time 10.6 sec (9.0-12.0)
[2019-02-26 09:56] LABS: HGB 14.2 gm/dL (13.0-17.5); MCH 30.5 pg (25.0-35.0); MCHC 33.1 g/dL (31.0-37.0); MCV 92.3 fL (80.0-100.0); Mean Platelet Volume 7.2; Platelet Count 163 k/uL (150-450); RBC 4.66 m/uL (4.30-5.90); WBC 4.8 k/uL (3.8-10.6)
[2019-02-26 10:13] LABS: Appearance,Urine Clear (Clear); Bilirubin,Urine Negative (Negative); Blood,Urine Negative (Negative); Color,Urine Yellow; Glucose,Urine (UA) Negative (Negative); Ketones,Urine Negative (Negative); Leukocyte Esterase,Urine Negative (Negative); Nitrite,Urine Negative (Negative); PH, Urine 5.5 (5.0-8.0); Protein,Urine Trace (Negative); Urobilinogen,Urine <2.0 mg/dL (<2.0)
== END | disposition home or self-care (01) ==
LOC: LABPAT 08:32
PROVIDERS: ATTEND Orthopaedic Surgery
DX: Z01.812 Encounter for preprocedural laboratory examination (principal); M17.11 Unilateral primary osteoarthritis, right knee
CPT/HCPCS: 36415; 80053; 81003; 85027; 85610; 85730; 87070

== ENCOUNTER 2019-03-10 05:41 | Inpatient (IN) | payer BC, MEDICARE ==
[~2019-03-10 05:41] MED LIST changes: +ACETAMINOPHEN TAB 500 MG TAB PO ONE; -LACTATED RINGERS 1,000 ML IV SCH; +MELOXICAM 7.5 MG TAB PO ONE; +TRANEXAMIC ACID 1,000 MG in SODIUM CHLORIDE 0.9% 100 ML IVPB ONE; +ceFAZolin 3 GM in SODIUM CHLORIDE 0.9% 100 ML IVPB ONE
[2019-03-10] MEDS ORDERED: LIDOCAINE 1% 20 ML VIAL (10MG/ML) FOR IV START INTRADERMA PRN (05:51)
[2019-03-10] MEDS ORDERED: HYDROmorphone 0.5 MG/0.5 ML SYRINGE IVP PRN ×4 (05:51→06:57)
[2019-03-10] MEDS ORDERED: ONDANSETRON 4 MG/2 ML VIAL IVP ONE (05:51)
[2019-03-10] MEDS ORDERED: ROPIVACAINE 246.25 MG, EPINEPHrine 0.5 MG, KETOROLAC 30 MG, WATER FOR INJECTION,STERILE... MISCELLANE ONE ×4 (05:52)
[2019-03-10] MEDS: LACTATED RINGERS 1,000 ML IV SCH (06:25)
[2019-03-10] MEDS ORDERED: fentaNYL (PF) 50 MCG/ML 2 ML AMP IV ONE (06:41)
[2019-03-10] MEDS ORDERED: MIDAZOLAM (PF) 2 MG/2 ML VIAL IV ONE (06:41)
[2019-03-10] MEDS ORDERED: MIDAZOLAM 2 MG/2 ML VIAL ONE (06:55)
[2019-03-10] MEDS ORDERED: SODIUM CHLORIDE 0.9% 100 ML BAG ONE (06:55)
[2019-03-10] MEDS ORDERED: LIDOCAINE 1% INJ 10MG/ML (20 ML MDV) ONE (06:55)
[2019-03-10] MEDS ORDERED: TRANEXAMIC ACID 1,000 MG/10 ML VIAL ONE (06:55)
[2019-03-10] MEDS ORDERED: PROPOFOL 10 MG/ML 20 ML VIAL IV ONE (06:55)
[2019-03-10] MEDS ORDERED: fentaNYL (PF) 50 MCG/ML 2 ML AMP ONE (06:55)
[2019-03-10] MEDS ORDERED: ePHEDrine SULFATE/0.9% NACL/PF 50 MG/5 ML SYRINGE IV ONE (06:55)
[2019-03-10] MEDS ORDERED: DIAZEPAM 5 MG TAB PO PRN (06:57)
[2019-03-10] MEDS ORDERED: NALOXONE 0.4 MG/ML 1 ML VIAL IV PRN (06:57)
[2019-03-10] MEDS ORDERED: NA PHOS,M-B/NA PHOS,DI-BA 133 ML ENEMA RECTAL PRN (06:57)
[2019-03-10] MEDS ORDERED: BISACODYL 10 MG SUPP RECTAL PRN (06:57)
[2019-03-10] MEDS ORDERED: ONDANSETRON 4 MG/2 ML VIAL IVP PRN (06:57)
[2019-03-10] MEDS ORDERED: hydrOXYzine PAMOATE 25 MG CAP PO PRN (06:57)
[2019-03-10] MEDS ORDERED: HYDROcodone/APAP 5-325MG 1 EACH TAB PO PRN ×2 (06:57)
[2019-03-10] MEDS ORDERED: MAGNESIUM HYDROXIDE 2,400 MG/10 ML CUP PO PRN (06:57)
[2019-03-10] MEDS ORDERED: ceFAZolin 3,000 MG in SODIUM CHLORIDE 0.9% IRRIGATIO 3,000 ML IRRIGATION ONE (07:30)
[2019-03-10] MEDS ORDERED: LACTATED RINGERS 1,000 ML IV ONE (07:40)
[2019-03-10] MEDS ORDERED: ROPIVACAINE 1,100 MG, SODIUM CHLORIDE 0.9% 500 ML 330 ML MISCELLANE PRN ×2 (07:48)
--- NOTE | 2019-03-10 07:51 | P.ONQ ---
Anesthesiology Proc Note - PNB - Peripheral Nerve Block Performed Right Adductor Canal Infusion Time Out Performed: Yes Procedure Start Time: 06:41 Procedure Stop Time: 06:52 Indication: Requested by physician Specifically requested for management of pain by : Domingo Lara Sedation Type: Sedate with meaningful contact maintained Preparation: Sterile Dressing Position: Supine Needle Types: Other (see comment) (PUJUNK) Needle Size: 100mm (4") Needle Gauge: 20 Technique: Ultrasound Injectate: 0.5% Ropivacaine (see comment for volume) (20 ml) Blood Aspirated: No Pain Paresthesia on Injection Noted: No Resistance on Injection: Normal Events: Uneventful and Well Tolerated
--- NOTE | 2019-03-10 08:47 | P.OP ---
Date of Procedure: 03/10/19 Preoperative Diagnosis: Severe osteoarthritis right knee Postoperative Diagnosis: Severe osteoarthritis right knee Procedure(s) Performed: Right total knee arthroplasty Implants: Bonilla and Nephew Journey II CR Oxinium cruciate retaining femoral component size 7, right [employer]hew Journey right nonporous tibial baseplate size 6 [employer]hew Journey II, XLPE Deep Dished articular insert, size 12 mm, Size 5-6 right [employer] Journey BCS resurfacing oval patellar component, 35 mm All components were cemented using [place] R bone cement.. The articulation is Oxinium on polyethylene. Anesthesia: spinal Surgeon: Domingo Lara Specialized Language Instructor #1: Kaylin Addison Estimated Blood Loss (ml): 50 Pathology: other (Bone and cartilage) Condition: stable Disposition: PACU Indications for Procedure: After failure of conservative treatment we discussed the surgical and nonsurgical treatment options at length. Patient wishes to proceed with a total knee arthroplasty. Complications specific to this procedure were discussed at length, including but not limited to infection, bleeding, stiffness, and nerve injury. Patient is aware of all these complications and informed consent was obtained Operative Findings: The operative findings are consistent with severe osteoarthritis of the right knee Description of Procedure: Patient was seen in the preoperative area consent was reviewed and operative site was marked with a skin marker. An adductor canal pain catheter was placed by anesthesia in the preoperative area. Patient was then brought to the opera ting room and given preoperative antibiotics intravenously. A spinal anesthetic was administered by the anesthesia department. A tourniquet was placed on the upper thigh and the lower extremity was prepped and draped in usual sterile fashion. A gram of transexamic acid was given. A universal timeout was then performed which confirmed the patient's name, surgical site, ALLERGIES, and consent. The lower extremity was then exsanguinated and tourniquet was inflated to 250 mmHg. A standard and anterior midline approach to the knee was performed. The skin and subcutaneous tissue was dissected down to the patellar tendon. A medial parapatellar arthrotomy was then performed. The knee was then extended, the patellar was everted, and the knee was again flexed. Anterior horns of both menisci were excised, and a release was performed to the posterior medial aspect of the knee. On gross visual inspection, there was complete loss of articular cartilage in the medial and patellofemoral joint spaces. There was also significant cartilage damage in the lateral compartment. There were multiple periarticular osteophytes which were then removed with a Ronguer. The femoral canal was then opened with the appropriate drill, and the intramedullary femoral cutting guide was then placed and set for 5 of valgus. The distal femoral cutting block was then pinned in place, and the distal femur was then cut. The cutting block was then removed and the cut was checked for flatness. Next, the sizing guide was then placed and set for 3 external rotation based off of the epicondylar axis and [place] line. After the femur was sized, the appropriate 4-in-1 cutting block was then pinned in place. The anterior condyles were cut without notching. The posterior and chamfer cuts were perfo rmed while protecting the collateral ligaments. The cutting block was then removed, and the femoral canal was plugged with autologous bone. Attention was then directed to the tibia. The remaining ACL was removed with a Ronguer, and the tibia was then gently subluxed forward with a large bent knee retractor. Any remaining menisci was excised. The posterior lateral corner was cauterized in order to cauterize the lateral geniculate artery. The extra medullary tibial cutting guide was then placed, set for the appropriate rotation, slope, and depth of resection. The proximal tibia cutting guide was then pinned in place. Proximal tibia was then cut and sized. Next trials were then placed with the appropriate-sized insert. The knee was able to fully extend and flex to 130 and was stable throughout all range of motion. The knee was then extended, patella everted. Patella was then measured, and then using an osteotomy guide, the patella was cut at the appropriate level. The patella was then measured and drilled and the patella trial was then placed. The knee was then taken through range of motion with the patella trial and the patella tracked normally. The knee was then extended patella trial was then removed and the patella was everted. Knee was then flexed and lug holes were drilled through the femoral trial and the femoral trial was then removed. The tibial was then exposed, and the tibial broach guide was then pinned in place after it was set for the appropriate rotation to allow for the most coverage without overhang. The tibia was then reamed and broached. The cut surfaces of bone were then irrigated with pulsatile lavage. The posterior structures were injected with the ropivacaine solution. The knee was also irrigated with Irrisept solution. The components were then opened, the cement was mixed, and the components were then cemented in place. The cement was allowed to harden with the knee in full extension. While the cement was hardening, the remaining soft tissues were then injected with a ropivacaine solution, which consisted of 246.25 mg of ropivacaine, 0.5 mg of epinephrine, 30 mg of Toradol, 80 g of clonidine, and 48.45 mL of sterile water, for a total of 100 mL of fluid injected. After the cemented hardened. The tourniquet was released, and hemostasis was obtained. A second gram of transexamic acid was given. The knee was again irrigated. The knee was again taken through range of motion and found to be stable throughout all range of motion of 0-130, and the patella tracked normally. The fascia was then closed with #2 strata fix suture. The subcutaneous tissue was closed with 3-0 Vicryl and 3-0 strata fix. Dermabond glue was used for the skin and placed with the knee in flexion. The patient was placed in a sterile silver dressing. Patient was then transferred to recovery room in stable condition. The assistant professor of economics SAUL Ojeda was required due the complexity surgery and the need for a skilled director surgical. She assisted in positioning, draping, retraction, and closure of the wound.
[2019-03-10] MEDS ORDERED: HYDROcodone/APAP 10-325MG 1 EACH TAB PO PRN (09:06)
--- NOTE | 2019-03-10 09:38 | XR ---
EXAMINATION TYPE: XR knee limited RT DATE OF EXAM: 03/10/2019 COMPARISON: NONE HISTORY: 68-year-old male evaluation for postoperative abnormality and alignment TECHNIQUE: 2 views FINDINGS: Images show placement of right total knee arthroplasty. Both distal femoral and proximal tibial compo nents of the prosthesis are well seated without periprosthetic fracture. Alignment grossly anatomic. Anterior soft tissue swelling as well as soft tissue air and intra-articular air compatible with rece nt operation. IMPRESSION: Uncomplicated right total knee arthroplasty.
[2019-03-10 10:24] VITALS: BMI 38.9
[2019-03-10] MEDS: HYDROcodone/APAP 10-325MG 1 EACH TAB PO PRN ×3 (11:05→22:31)
[2019-03-10] MEDS: SODIUM CHLORIDE 0.9% 1,000 ML IV SCH (11:06)
[2019-03-10] MEDS: ceFAZolin 3 GM in SODIUM CHLORIDE 0.9% 100 ML IVPB SCH ×2 (16:29→23:29)
[2019-03-10] MEDS: PANTOPRAZOLE 40 MG TABLET PO SCH (16:30)
--- NOTE | 2019-03-10 18:11 | P.CONS ---
History of Present Illness - Reason for Consult Consult date: 03/10/19 medical management Requesting physician: Domingo Lara - Chief Complaint knee pain - History of Present Illness Patient is a 68-year-old male past medical history of hypertension, dyslipidemia, arthritis, GERD, sleep apnea with CPAP, and coronary artery disease who presented for elective right total knee arthroplasty. He tolerated procedure well without any immediate postoperative complications. Patient seen and examined at bedside. He denies any pain, nausea, vomiting, lightheadedness, chest pain, shortness of breath. He has been feeling well recently. He denies any recent cough, cold, fever, flu, nausea, or vomiting. He tried conservative management for his knee pain including therapy, injections, and knee scope. These are ineffective so he presented. He has been using [place] frequently to help with the pain and has intermittently used a cane at home. Review of Systems Pertinent positives and negatives as discussed in HPI, a complete review of systems was performed and all other systems are negative. Past Medical History Past Medical History: Coronary Artery Disease (CAD), Cancer, GERD/Reflux, Hyperlipidemia, Hypertension, Osteoarthritis (OA), Sleep Apnea/CPAP/BIPAP Additional Past Medical History / Comment(s): HIATAL HERNIA, hx skin cancer, hx fx back. CPAP use. History of Any Multi-Drug Resistant Organisms: None Reported Past Surgical History: Back Surgery, Heart Catheterization With Stent, Joint Replacement, Orthopedic Surgery Additional Past Surgical History / Comment(s): Bilateral total hip replacements, deviated septal repair, undescended testicle, 3 cardiac stents, arthroscopy bilateral knees, EGD, COLONOSCOPY. Past Anesthesia/Blood Transfusion Reactions: No Reported Reaction Date of Last Stent Placement:: 2008 Past Psychological History: No Psychological Hx Reported Smoking Status: Former smoker Past Alcohol Use History: None Reported Additional Past Alcohol Use History / Comment(s): Quit smoking in 1969, smoked for 2 yrs, 1 PPD. Past Drug Use History: None Reported - Past Family History Father Family Medical History: CVA/TIA Sister(s) Family Medical History: Cancer Additional Family Medical History / Comment(s): Lung Cancer. Mother Family Medical History: Myocardial Infarction ([place]) Medications and Allergies Home Medications Medication Instructions Recorded Confirmed Type Aspirin 81 mg PO DAILY 04/08/14 03/10/19 History Metoprolol Tartrate [Lopressor] 25 mg PO BID 04/08/14 03/10/19 History Pravastatin Sodium [Pravachol] 40 mg PO HS 04/08/14 03/10/19 History Escitalopram [Lexapro] 20 mg PO HS 03/11/18 03/10/19 History HYDROcodone/APAP 10-325MG [[place] 1 tab PO QID 03/05/19 03/10/19 History 10-325] Lansoprazole [Prevacid] 30 mg PO BID 03/05/19 03/10/19 History Allergies Allergy/AdvReac Type Severity Reaction Status Date / Time Penicillins Allergy Rash/Hives Verified 03/10/19 09:58 Physical Exam Osteopathic Statement: *. No significant issues noted on an osteopathic structural exam other than those noted in the History and Physical/Consult. Vitals: Vital Signs Temp Pulse Resp BP Pulse Ox 03/10/19 12:03 54 L 133/79 03/10/19 11:48 53 L 136/84 03/10/19 11:33 53 L 133/82 03/10/19 11:19 57 L 133/82 03/10/19 11:03 53 L 125/74 03/10/19 10:33 55 L 123/74 03/10/19 10:18 56 L 120/71 03/10/19 10:03 66 119/71 03/10/19 09:54 97.7 F 55 L 14 115/77 92 L 03/10/19 09:30 72 16 122/62 96 03/10/19 09:15 64 16 119/60 99 03/10/19 09:04 97.7 F 66 16 120/58 95 03/10/19 06:16 97.8 F 63 16 136/69 97 Intake and Output 03/10/19 03/10/19 03/10/19 06:59 14:59 22:59 Intake Total 1000 701 Output Total 50 Balance 1000 651 Intake: IV 1000 701 Output: Estimated Blood Loss 50 Other: # Voids 1 General: non toxic, no distress, appears at stated age, obese Derm: no unusual rashes/lesions no unusual ecchymoses, warm, dry Head: atraumatic, normocephalic, symmetric Eyes: EOMI, no lid lag, anicteric sclera, pupils equal round reactive to light ENT: Nose and ears atraumatic, no thrush, no pharyngeal erythema Neck: No thyromegaly, no cervical lymphadenopathy, trachea midline, supple Mouth: no lip lesion, mucus membranes moist Cardiovascular: S1S2 reg, no murmur, positive posterior tibial pulse bilateral, no edema, capillary refill less than 2 seconds Lungs: Decreased breath sounds bilateral, no rhonchi, no rales , no accessory muscle use Abdominal: soft, nontender to palpation, no guarding, no appreciable organomegaly, normal bowel sounds Ext: Right lower extremity with Gilbert wrap in place, no gross muscle atrophy, strength 5 out of 5 in bilateral upper extremity, no contractures, Neuro: CN II-XI grossly intact, light touch intact all 4 extremities, finger to nose within normal limits, Psych: Alert, oriented, appropriate affect Assessment and Plan Assessment: Patient is a 68-year-old male here for elective right total knee arthroplasty. Barriers to discharge on chronic narcotic use, assistive device use at home with a cane, obesity with BMI 38, and history of coronary artery disease as well as obstructive sleep apnea. Obstructive sleep apnea -CPAP use with naps and at night Hypertension -Resume home Lopressor Dyslipidemia -Statin GERD -PPI Postoperative pain secondary to right knee -Continue it as needed pain medications -PT/OT evaluation -Plan is for home with home health -On aspirin for DVT prophylaxis Coronary artery disease -Discontinue baby aspirin while taking twice a day 325. Can resume baby aspirin once twice a day full dose aspirin completely. Thank you for allowing us to participate in the care of this patient. Do not hesitate to contact us with questions. Someone can be reached from the [facility] hospitalist group at all hours of the day at [phone].
[2019-03-10 20:16] VITALS: RESP 16
[2019-03-10] MEDS: ASPIRIN 325 MG TAB PO SCH (20:20)
[2019-03-10] MEDS: METOPROLOL TARTRATE 25 MG TAB PO SCH (20:20)
[2019-03-10] MEDS ORDERED: ESCITALOPRAM 20 MG TAB PO SCH (21:00)
[2019-03-10] MEDS ORDERED: SENNOSIDES-DOCUSATE SODIUM 1 EACH TAB PO SCH (21:00)
[2019-03-10] MEDS ORDERED: PRAVASTATIN SODIUM 40 MG TAB PO SCH (21:00)
[2019-03-11 02:16] VITALS: TEMP 98.5
[2019-03-11] MEDS: HYDROcodone/APAP 10-325MG 1 EACH TAB PO PRN ×2 (04:35→10:02)
[2019-03-11] MEDS: LACTATED RINGERS 1,000 ML IV SCH (06:48)
[2019-03-11 08:15] LABS: Basophils % (A) 1 %; Eosinophils # (A) 0.1 k/uL (0-0.7); Eosinophils % (A) 2 %; HCT 40.3 % (39.0-53.0); HGB 13.3 gm/dL (13.0-17.5); Lymphocytes # (A) 1.1 k/uL (1.0-4.8); Lymphocytes % (A) 13 %; MCH 30.5 pg (25.0-35.0); MCV 92.4 fL (80.0-100.0); Mean Platelet Volume 7.3; Monocytes # (A) 0.8 k/uL (0-1.0); Monocytes % (A) 9 %; Neutrophils # (A) 6.3 k/uL (1.3-7.7); Neutrophils % (A) 74 %; Platelet Count 159 k/uL (150-450); RBC 4.37 m/uL (4.30-5.90); RDW 13.3 % (11.5-15.5); WBC 8.5 k/uL (3.8-10.6)
[2019-03-11] MEDS: SODIUM CHLORIDE 0.9% 1,000 ML IV SCH (08:40)
[2019-03-11 08:47] VITALS: BP 126/76; PULSE 75
[2019-03-11] MEDS: PANTOPRAZOLE 40 MG TABLET PO SCH (08:47)
[2019-03-11] MEDS: METOPROLOL TARTRATE 25 MG TAB PO SCH (08:48)
[2019-03-11] MEDS: ASPIRIN 325 MG TAB PO SCH (08:48)
[2019-03-11] MEDS ORDERED: MELOXICAM 7.5 MG TAB PO SCH (09:00)
--- NOTE | 2019-03-11 09:30 | P.DS ---
Providers Date of admission: 03/10/19 05:41 Expected date of discharge: 03/11/19 Attending physician: Domingo Lara Consults: 03/10/19 06:57 Consult Physician Routine Consulting Provider: Seema Cunningham Consult Reason/Comments: medical management Do you want consulting provider notified?: Yes Primary care physician: Sanju Latif - Discharge Diagnosis(es) (1) S/P total knee arthroplasty Current Visit: Yes Status: Acute (2) Osteoarthritis of right knee Current Visit: Yes Status: Acute Hospital Course: This is a 68-year-old male with known history of degenerative arthritis of the right knee. The patient presents for evaluation. After discussion and consideration patient elects to proceed with total knee arthroplasty. The patient is seen preoperatively by Dr. Lara and medically cleared for surgery by their primary care physician. Patient is admitted to [facility] on 03/10/2019 for total knee arthroplasty. The procedures performed without complication or sequelae. The patient is doing well postoperatively. Labs and vital signs are stable on day of discharge. On day of discharge patient's knee incision is healing well. There is minimal erythema. There is no drainage noted at this time. There is minimal soft tissue swelling to the knee. Patient has full foot and ankle motion without difficulty or pain. Calf is soft and nontender to palpation. Neurovascular status to the right lower extremity is intact. Patient is discharged home in good condition. Please see med rec for accurate list of home medications. Plan - Discharge Summary Discharge Rx Participant: No New Discharge Prescriptions: New Aspirin 325 mg PO BID #60 tab HYDROcodone/APAP 7.5-325MG [Apex 7.5-325] 1 - 2 tab PO Q6H PRN #56 tab PRN Reason: Pain Sennosides [Senokot] 1 tab PO BID #60 tablet No Action Pravastatin Sodium [Pravachol] 40 mg PO HS Metoprolol Tartrate [Lopressor] 25 mg PO BID Aspirin 81 mg PO DAILY Escitalopram [Lexapro] 20 mg PO HS HYDROcodone/APAP 10-325MG [Apex 10-325] 1 tab PO QID Lansoprazole [Prevacid] 30 mg PO BID Discharge Medication List Aspirin 81 mg PO DAILY 04/08/14 [History] Metoprolol Tartrate [Lopressor] 25 mg PO BID 04/08/14 [History] Pravastatin Sodium [Pravachol] 40 mg PO HS 04/08/14 [History] Escitalopram [Lexapro] 20 mg PO HS 03/11/18 [History] HYDROcodone/APAP 10-325MG [Apex 10-325] 1 tab PO QID 03/05/19 [History] Lansoprazole [Prevacid] 30 mg PO BID 03/05/19 [History] Aspirin 325 mg PO BID #60 tab 03/11/19 [Rx] HYDROcodone/APAP 7.5-325MG [Apex 7.5-325] 1 - 2 tab PO Q6H PRN #56 tab 03/11/19 [Rx] Sennosides [Senokot] 1 tab PO BID #60 tablet 03/11/19 [Rx] Follow up Appointment(s)/Referral(s): Domingo Lara DO [Doctor of Osteopathic Medicine] - 2 Weeks Activity/Diet/Wound Care/Special Instructions: Resume Aspirin 81 mg daily, once you complete the Aspiring 325 mg twice daily. Weightbearing as tolerated with a walker. CPM 5-6h daily. Leave dressing intact. May be removed by home care nurse or by patient in 10 days. May shower with dressing on. Please follow up with [facility] and call with any questions or concerns, . Discharge Disposition: HOME WITH HOME HEALTH SERVICES
--- NOTE | 2019-03-11 10:50 | P.PN ---
Subjective Progress Note Date: 03/11/19 Principal diagnosis: knee pain Patient is a 68-year-old male past medical history of hypertension, dyslipidemia, arthritis, GERD, sleep apnea with CPAP, and coronary artery disease who presented for elective right total knee arthroplasty. He tolerated procedure well without any immediate postoperative complications. Patient seen and examined at bedside. No chest pain, SOB, nausea, or vomiting. No other complaints currently. Has difficulty with acid reflux will be on BID ASA. Will refill his PPI and have him take BID until completes BID ASA. Objective - Vital Signs Vital signs: Vital Signs Temp 98.5 F 03/11/19 08:46 Pulse 75 03/11/19 08:46 Resp 16 03/11/19 08:46 BP 126/76 03/11/19 08:46 Pulse Ox 96 03/11/19 08:46 Intake & Output 03/10/19 03/11/19 03/11/19 18:59 06:59 18:59 Intake Total 701 2330 Output Total 50 Balance 651 2330 Intake: IV 701 Intake, IV Titration 1320 Amount Sodium Chloride 0.9% 1, 1120 000 ml @ 70 mls/hr IV . [id number] BORIS Rx#:[id number] ceFAZolin 3 gm In Sodium 200 Chloride 0.9% 100 ml @ 200 mls/hr IVPB Q8HR BORIS Rx#:[id number] Oral 1010 Output: Estimated Blood Loss 50 Other: Voiding Method Toilet Toilet Urinal Urinal # Voids 1 1 - Exam General: non toxic, no distress, appears at stated age, obese Derm: warm, dry Head: atraumatic, normocephalic, symmetric Eyes: EOMI, no lid lag, anicteric sclera Mouth: no lip lesion, mucus membranes moist Cardiovascular: S1S2 reg, no murmur, positive posterior tibial pulse bilateral, Lungs: CTA bilateral, no rhonchi, no rales , no accessory muscle use Abdominal: soft, nontender to palpation, no guarding, no appreciable organomegaly Ext: Dressing inplace on right LE, no gross muscle atrophy, no edema, no contractures Neuro: CN II-XI grossly intact, no focal neuro deficits Psych: Alert, oriented, appropriate affect - Labs CBC & Chem 7: 03/11/19 07:46 Assessment and Plan Assessment: Patient is a 68-year-old male here for elective right total knee arthroplasty. Barriers to discharge on chronic narcotic use, assistive device use at home with a cane, obesity with BMI 38, and history of coronary artery disease as well as obstructive sleep apnea. Obstructive sleep apnea -CPAP use with naps and at night Hypertension -Resume home Lopressor Dyslipidemia -Statin GERD -PPI twice daily while on ASA BID, RX refilled Obesity with BMI 38 - outpatient structured weight loss Postoperative pain secondary to right knee -Continue it as needed pain medications -PT/OT evaluation -Plan is for home with home health -On aspirin for DVT prophylaxis Coronary artery disease -Discontinue baby aspirin while taking twice a day 325. Can resume baby aspirin once twice a day full dose aspirin completely. Medically optimized for discharge at the discretion of ortho.
--- NOTE | 2019-03-11 11:07 | P.PN ---
Progress Note - Text 03/11 649am 68-year-old male status post total knee replacement patient has an On-Q pump for postop pain control with the solution running at 8 mL an hour with a VAS of 4. Plan to continue On-Q pump infusion
== END 2019-03-11 11:01 | disposition home health service (06) | DRG 470 ==
LOC: 2ORMAIN 05:41 → 4SSUR 09:07
PROVIDERS: ADMIT Orthopaedic Surgery; ATTEND Orthopaedic Surgery
PROC: 0SRC069 Replacement of Right Knee Joint with Oxidized Zirconium on Polyethylene Synthetic Substitute, Cemented, Open Approach (ICD-10-PCS; principal; 2019-03-10 07:00)
DX: M17.11 Unilateral primary osteoarthritis, right knee (principal); K21.9 Gastro-esophageal reflux disease without esophagitis; I25.10 Atherosclerotic heart disease of native coronary artery without angina pectoris; I10 Essential (primary) hypertension; G47.33 Obstructive sleep apnea (adult) (pediatric); E78.5 Hyperlipidemia, unspecified; E66.9 Obesity, unspecified; K44.9 Diaphragmatic hernia without obstruction or gangrene; Z68.38 Body mass index [BMI] 38.0-38.9, adult; Z79.82 Long term (current) use of aspirin; Z79.899 Other long term (current) drug therapy; Z88.0 Allergy status to penicillin; Z95.5 Presence of coronary angioplasty implant and graft; Z96.643 Presence of artificial hip joint, bilateral; Z87.891 Personal history of nicotine dependence; Z85.828 Personal history of other malignant neoplasm of skin; Z80.1 Family history of malignant neoplasm of trachea, bronchus and lung; Z82.49 Family history of ischemic heart disease and other diseases of the circulatory system; Z82.3 Family history of stroke
CPT/HCPCS: 85025; 88300

== ENCOUNTER 2019-04-22 21:31 | Emergency (ER) | payer MEDICARE, BC ==
[2019-04-22 21:45] VITALS: BP 127/80; PULSE 67; TEMP 98.7
--- NOTE | 2019-04-22 22:10 | ED ---
General Adult HPI - General Chief complaint: Shortness of Breath Stated complaint: SOB, Poss blood clot Time Seen by Provider: 04/22/19 21:53 Source: patient Mode of arrival: ambulatory Limitations: no limitations - History of Present Illness Initial comments: Dictation was produced using [employer] dictation software. please excuse any gr ammatical, word or spelling errors. Chief Complaint: 68-year-old male presents with elevated d-dimer. History of Present Illness: 68-year-old male he had total knee replacement of the right lower extremity performed 6 weeks ago. Patient states approximately one week after the surgery he began having worsening shortness of breath. Patient states his shortness of breath is constant however exacerbated with exertion. Patient denies any chest pain. He was evaluated by his primary care physician who ordered a d-dimer. Found to be elevated he was instructed to come to the emergency department. Patient's d-dimer was elevated at 2.81. Patient does complain of some lower extremity pain which is mostly localized to the inferior part of his anterior right lower extremity. The ROS documented in this emergency department record has been reviewed and confirmed by me. Those systems with pertinent positive or negative responses have been documented in the HPI. All other systems are other negative and/or noncontributory. PHYSICAL EXAM: General Impression: Alert and oriented x3, not in acute distress HEENT: Normocephalic atraumatic, extra-ocular movements intact, pupils equal and reactive to light bilaterally, mucous membranes moist. Cardiovascular: Heart regular rate and rhythm, S1&S2 audible, no murmurs, rubs or gallops Chest: Lungs clear to auscultation bilaterally, no rhonchi, no wheeze, no rales Abdomen: Bowel sounds present, abdomen soft, non-tender, non-distended, no organomegaly Musculoskeletal: Pulses present and equal in all extremities, no peripheral donna a, legs are symmetric in size Motor: no focal deficits noted Neurological: CN II-XII grossly intact, no focal motor or sensory deficits noted Skin: Intact with no visualized rashes, anterior vertical surgical scar to the right anterior knee clean dry and intact Psych: Normal affect and mood ED course: 68-year-old male presents with tremors of breath. He had an elevated d-dimer performed outpatient. All signs upon arrival are within acceptable limits.Patient was initially began as an EMR patient however during his ER visit EMR down time was initiated. CT angios the chest is unremarkable for part embolus or dissection.. Patient was observed in the emergency department for several hours and found to be stable medical condition. Patient clear for discharge instructed to follow-up with primary care physician upon discharge. EKG interpretation: Ventricular rate, normal sinus rhythm,. Interval 190, care/6, QTC 422. No DE prolongation, no QTC prolongation, no ST or T-wave changes noted. EKG compared to 05/09/2017 showing no changes. Overall, this EKG is unremarkable - Related Data Home Medications Medication Instructions Recorded Confirmed Metoprolol Tartrate [Lopressor] 25 mg PO BID 04/08/14 05/05/19 Pravastatin Sodium [Pravachol] 40 mg PO HS 04/08/14 05/05/19 Escitalopram [Lexapro] 20 mg PO HS 03/11/18 05/05/19 Aspirin EC [Ecotrin Low Dose] 81 mg PO DAILY 04/22/19 05/05/19 Folic Acid 0.4 mg PO DAILY 04/22/19 05/05/19 Lansoprazole [Prevacid] 30 mg PO BID PRN 04/22/19 05/05/19 Castella-3 Fatty Acids/Fish Oil [Fish 1 cap PO DAILY 04/22/19 05/05/19 Oil 1,000 mg Softgel] oxyCODONE HCL/ACETAMINOPHEN 1 tab PO QID 04/22/19 05/05/19 [Percocet 10-325 mg] Allergies Allergy/AdvReac Type Severity Reaction Status Date / Time Penicillins Allergy Rash/Hives Verified 05/05/19 13:05 Review of Systems ROS Statement: Those systems with pertinent positive or pertinent negative responses have been documented in the HPI. ROS Other: All systems not noted in ROS Statement are negative. Past Medical History Past Medical History: Coronary Artery Disease (CAD), Cancer, GERD/Reflux, Hyperlipidemia, Hypertension, Osteoarthritis (OA), Sleep Apnea/CPAP/BIPAP Additional Past Medical History / Comment(s): HIATAL HERNIA, hx skin cancer, hx fx back History of Any Multi-Drug Resistant Organisms: None Reported Past Surgical History: Back Surgery, Heart Catheterization With Stent, Joint Replacement, Orthopedic Surgery Additional Past Surgical History / Comment(s): BILAT LIZZY, deviated septal repair, undescended testicle, 3 cardiac stents, arthroscopy yuan knees, EGD, COLONOSCOPY Past Anesthesia/Blood Transfusion Reactions: No Reported Reaction Date of Last Stent Placement:: 2008 Past Psychological History: No Psychological Hx Reported Smoking Status: Former smoker Past Alcohol Use History: None Reported Past Drug Use History: None Reported - Past Family History Father Family Medical History: CVA/TIA Sister(s) Family Medical History: Cancer Additional Family Medical History / Comment(s): Lung Cancer. Mother Family Medical History: Myocardial Infarction (SD) General Exam Limitations: no limitations Course Vital Signs 04/22/19 04/22/19 21:41 22:14 Temperature 98.7 F Pulse Rate 67 Respiratory 18 20 Rate Blood Pressure 127/80 O2 Sat by Pulse 94 L Oximetry Medical Decision Making - Lab Data Result diagrams: 04/22/19 23:21 04/22/19 23:21 Lab Results 04/22/19 04/22/19 04/22/19 Range/Units 22:30 23:21 23:21 WBC 4.1 (3.8-10.6) k/uL RBC 4.18 L (4.30-5.90) m/uL Hgb 12.3 L (13.0-17.5) gm/dL Hct 37.8 L (39.0-53.0) % MCV 90.4 (80.0-100.0) fL MCH 29.4 (25.0-35.0) pg MCHC 32.5 (31.0-37.0) g/dL RDW 12.8 (11.5-15.5) % Plt Count 174 (150-450) k/uL Neutrophils % 48 % Lymphocytes % 34 % Monocytes % 10 % Eosinophils % 3 % Basophils % 1 % Neutrophils # 2.0 (1.3-7.7) k/uL Lymphocytes # 1.4 (1.0-4.8) k/uL Monocytes # 0.4 (0-1.0) k/uL Eosinophils # 0.1 (0-0.7) k/uL Basophils # 0.0 (0-0.2) k/uL PT (9.0-12.0) sec INR (<1.2) APTT (22.0-30.0) sec Sodium 140 (137-145) mmol/L Potassium 4.5 (3.5-5.1) mmol/L Chloride 107 (98-107) mmol/L Carbon Dioxide 25 (22-30) mmol/L Anion Gap 8 mmol/L BUN 14 (9-20) mg/dL Creatinine 0.79 (0.66-1.25) mg/dL Est GFR (CKD-EPI)AfAm >90 (>60 ml/min/1.73 sqM) Est GFR (CKD-EPI)NonAf >90 (>60 ml/min/1.73 sqM) Glucose 116 H (74-99) mg/dL Calcium 8.9 (8.4-10.2) mg/dL Magnesium (1.6-2.3) mg/dL Total Bilirubin (0.2-1.3) mg/dL AST (17-59) U/L ALT (21-72) U/L Alkaline Phosphatase (38-126) U/L Troponin I (0.000-0.034) ng/mL NT-Pro-B Natriuret Pep 82 pg/mL Total Protein (6.3-8.2) g/dL Albumin (3.5-5.0) g/dL 04/22/19 04/22/19 04/22/19 Range/Units 23:21 23:21 23:21 WBC (3.8-10.6) k/uL RBC (4.30-5.90) m/uL Hgb (13.0-17.5) gm/dL Hct (39.0-53.0) % MCV (80.0-100.0) fL MCH (25.0-35.0) pg MCHC (31.0-37.0) g/dL RDW (11.5-15.5) % Plt Count (150-450) k/uL Neutrophils % % Lymphocytes % % Monocytes % % Eosinophils % % Basophils % % Neutrophils # (1.3-7.7) k/uL Lymphocytes # (1.0-4.8) k/uL Monocytes # (0-1.0) k/uL Eosinophils # (0-0.7) k/uL Basophils # (0-0.2) k/uL PT 10.1 (9.0-12.0) sec INR 0.9 (<1.2) APTT 24.1 (22.0-30.0) sec Sodium 140 (137-145) mmol/L Potassium 4.0 (3.5-5.1) mmol/L Chloride 106 (98-107) mmol/L Carbon Dioxide 26 (22-30) mmol/L Anion Gap 8 mmol/L BUN 15 (9-20) mg/dL Creatinine 0.82 (0.66-1.25) mg/dL Est GFR (CKD-EPI)AfAm >90 (>60 ml/min/1.73 sqM) Est GFR (CKD-EPI)NonAf >90 (>60 ml/min/1.73 sqM) Glucose 105 H (74-99) mg/dL Calcium 9.0 (8.4-10.2) mg/dL Magnesium 2.1 (1.6-2.3) mg/dL Total Bilirubin 0.3 (0.2-1.3) mg/dL AST 27 (17-59) U/L ALT 33 (21-72) U/L Alkaline Phosphatase 80 (38-126) U/L Troponin I <0.012 (0.000-0.034) ng/mL NT-Pro-B Natriuret Pep pg/mL Total Protein 6.7 (6.3-8.2) g/dL Albumin 4.1 (3.5-5.0) g/dL Disposition Clinical Impression: Abnormal laboratory test Disposition: HOME SELF-CARE Condition: Fair Is patient prescribed a controlled substance at d/c from ED?: No Referrals: Sanju Latif MD [Primary Care Provider] - 1-2 days Time of Disposition: 16:05
[2019-04-22 22:35] VITALS: RESP 20
[2019-04-22 22:51] LABS: African American GFR (CKD) >90 (>60 ml/min/1.73 sqM); Anion Gap 8 mmol/L; Blood Urea Nitrogen 14 mg/dL (9-20); Calcium 8.9 mg/dL (8.4-10.2); Carbon Dioxide 25 mmol/L (22-30); Chloride 107 mmol/L (98-107); Glucose 116 mg/dL (74-99); Sodium 140 mmol/L (137-145)
[2019-04-22 22:57] LABS: Potassium 4.5 mmol/L (3.5-5.1)
[2019-04-23 05:27] LABS: Basophils % (A) 1 %; Eosinophils # (A) 0.1 k/uL (0-0.7); Eosinophils % (A) 3 %; HCT 37.8 % (39.0-53.0); HGB 12.3 gm/dL (13.0-17.5); Lymphocytes # (A) 1.4 k/uL (1.0-4.8); Lymphocytes % (A) 34 %; MCH 29.4 pg (25.0-35.0); MCHC 32.5 g/dL (31.0-37.0); MCV 90.4 fL (80.0-100.0); Mean Platelet Volume 7.1; Monocytes # (A) 0.4 k/uL (0-1.0); Monocytes % (A) 10 %; Neutrophils % (A) 48 %; Platelet Count 174 k/uL (150-450); RBC 4.18 m/uL (4.30-5.90); RDW 12.8 % (11.5-15.5); WBC 4.1 k/uL (3.8-10.6)
[2019-04-23 05:29] LABS: ALT 33 U/L (21-72); AST 27 U/L (17-59); African American GFR (CKD) >90 (>60 ml/min/1.73 sqM); Albumin 4.1 g/dL (3.5-5.0); Alkaline Phosphatase 80 U/L (38-126); Anion Gap 8 mmol/L; Blood Urea Nitrogen 15 mg/dL (9-20); Carbon Dioxide 26 mmol/L (22-30); Chloride 106 mmol/L (98-107); Glucose 105 mg/dL (74-99); INR 0.9 (<1.2); Magnesium 2.1 mg/dL (1.6-2.3); Partial Thromboplastin Time 24.1 sec (22.0-30.0); Prothrombin Time 10.1 sec (9.0-12.0); Sodium 140 mmol/L (137-145); Total Bilirubin 0.3 mg/dL (0.2-1.3); Total Protein 6.7 g/dL (6.3-8.2)
--- NOTE | 2019-04-23 06:29 | CT ---
EXAM: CT Angiography Chest With Intravenous Contrast CLINICAL HISTORY: R/O PE, pain, sob, Eig937/100ml, DLP: 660.40 TECHNIQUE: Axial computed tomographic angiography images of the chest with intravenous contrast using pulmonary embolism protocol. CTDI is 14.4 mGy and DLP is 660.4 mGy-cm. This CT exam was performed using one or more of the following dose reduction techniques: automated exposure control, adjustment of the mA and/or kV according to patient size, and/or use of iterative reconstruction technique. MIP reconstructed images were created and reviewed. COMPARISON: No relevant prior studies available. FINDINGS: Pulmonary arteries: Unremarkable. No pulmonary embolism. Aorta: No acute findings. No thoracic aortic aneurysm. Lungs: Mild basilar dependent atelectasis. Otherwise lungs clear. No mass. Pleural space: Unremarkable. No significant effusion. No pneumothorax. Heart: Coronary calcifications. No significant pericardial effusion. No evidence of RV dysfunction. Bones/joints: Degenerative changes of the thoracic spine. Mild anterior wedging/prominent Schmorl's nodes of T11 and T12 vertebral bodies. Chronic appearance. No dislocation. Soft tissues: Unremarkable. Lymph nodes: Unremarkable. No enlarged lymph nodes. Kidneys and ureters: 17 mm right renal low-density lesion, likely cyst. IMPRESSION: No evidence of pulmonary embolism. No evidence of acute abnormality.
== END 2019-04-23 02:00 | disposition home or self-care (01) ==
LOC: EC 21:31
DX: R89.9 Unspecified abnormal finding in specimens from other organs, systems and tissues (principal); R06.02 Shortness of breath; I25.10 Atherosclerotic heart disease of native coronary artery without angina pectoris; E78.5 Hyperlipidemia, unspecified; K21.9 Gastro-esophageal reflux disease without esophagitis; I10 Essential (primary) hypertension; G47.30 Sleep apnea, unspecified; M19.90 Unspecified osteoarthritis, unspecified site; Z79.82 Long term (current) use of aspirin; Z79.899 Other long term (current) drug therapy; Z88.0 Allergy status to penicillin; Z95.5 Presence of coronary angioplasty implant and graft; Z87.891 Personal history of nicotine dependence; Z85.828 Personal history of other malignant neoplasm of skin; Z96.643 Presence of artificial hip joint, bilateral; Z96.651 Presence of right artificial knee joint
CPT/HCPCS: 36415; 71275; 80048; 80053; 83735; 83880; 84484; 85025; 85610; 85730; 93005; 99285

== ENCOUNTER 2019-05-07 09:10 | Day surgery (SDC) | payer MEDICARE, BC ==
[~2019-05-07 09:10] MED LIST changes: -ACETAMINOPHEN TAB 500 MG TAB PO ONE; +ALPRAZolam 0.25 MG TAB PO PRN; +ALPRAZolam 0.5 MG TAB PO PRN; +ASPIRIN 325 MG TAB PO STA; +ATORVASTATIN 80 MG TAB PO STA; -MELOXICAM 7.5 MG TAB PO ONE; +NITROGLYCERIN SL TABS 0.4 MG TAB SUBLINGUAL PRN; +SODIUM CHLORIDE 0.9% 1,000 ML in EMPTY BAG 1 BAG IV ONE; -TRANEXAMIC ACID 1,000 MG in SODIUM CHLORIDE 0.9% 100 ML IVPB ONE; -ceFAZolin 3 GM in SODIUM CHLORIDE 0.9% 100 ML IVPB ONE
[2019-05-07] MEDS ORDERED: SODIUM CHLORIDE 0.9% 1,000 ML IV ONE (09:57)
[2019-05-07] MEDS: fentaNYL (PF) 50 MCG/ML 2 ML AMP IVP ONE ×2 (11:17→11:24)
[2019-05-07] MEDS: MIDAZOLAM (PF) 2 MG/2 ML VIAL IVP ONE ×2 (11:17→11:20)
[2019-05-07] MEDS ORDERED: LIDOCAINE 1% INJ 10MG/ML (20 ML MDV) SQ ONE (11:19)
[2019-05-07] MEDS ORDERED: MIDAZOLAM (PF) 2 MG/2 ML VIAL IVP ONE (11:33)
[2019-05-07] MEDS ORDERED: BIVALIRUDIN BOLUS 250 MG/50 ML IV ONE (11:49)
[2019-05-07] MEDS ORDERED: BIVALIRUDIN 250 MG in SODIUM CHLORIDE 0.9% 50 ML IV ONE (11:50)
[2019-05-07] MEDS ORDERED: IOPAMIDOL-370 100ML BTL INJ ONE ×2 (11:55→12:11)
[2019-05-07] MEDS ORDERED: HYDROmorphone 1 MG/ML 1 ML SYRINGE IVP ONE ×2 (11:58→12:15)
[2019-05-07] MEDS: NITROGLYCERIN 1000MCG/10ML SYRINGE INTRACORON ONE ×2 (11:59→12:03)
[2019-05-07] MEDS ORDERED: CLOPIDOGREL 75 MG TAB PO ONE (12:04)
[2019-05-07] MEDS ORDERED: PANTOPRAZOLE 40 MG TABLET PO PRN (12:21)
[2019-05-07] MEDS ORDERED: RX INFO: IV CONTRAST WAS GIVEN 1 EACH MISC MISCELLANE PRN (12:22)
[2019-05-07] MEDS ORDERED: MAG HYDROX/AL HYDROX/SIMETH 30 ML CUP PO PRN (12:22)
[2019-05-07] MEDS ORDERED: NITROGLYCERIN SL TABS 0.4 MG TAB SUBLINGUAL PRN (12:22)
[2019-05-07] MEDS ORDERED: ZOLPIDEM 5 MG TAB PO PRN (12:22)
[2019-05-07] MEDS ORDERED: ATROPINE SULFATE 0.1 MG/ML 10ML SYRINGE IV PRN (12:22)
[2019-05-07] MEDS ORDERED: SODIUM CHLORIDE 0.9% 1,000 ML IV SCH (12:30)
--- NOTE | 2019-05-07 13:20 | PTCA ---
PERCUTANEOUSTRANS CORORONARY ANGIOGRAPHY DATE OF SERVICE: May 07, 2019 PERFORMING PHYSICIAN: Nj Mccormick MD. PROCEDURE PERFORMED: Successful stenting of the PLV branch of the RCA using 3.0 x 23 mm Xience LINO, which was postdilated using 3.5 mm NC balloon with an excellent angiographic result and reduction of stenosis from 80% to 0%. INDICATION: This is a 68-year-old gentleman who sees Dr. Marlow in the office as an outpatient and sees Dr. Latif as an outpatient who was experiencing chest discomfort. He underwent myocardial perfusion imaging stress test and that revealed an inferior ischemia. Because of that, a heart catheterization was advised. The heart catheterization was performed by Dr. Marlow and revealed severe disease involving the PLV branch of the RCA. The decision was made towards PCI of the PLV. APPROACH: Right common femoral artery. COMPLICATION: None. LEVEL OF SEDATION: Moderate with sedation length of 28 minutes. PROCEDURE DESCRIPTION: Please refer to the diagnostic heart catheterization that was performed by Dr. Marlow. Anticoagulation was initiated using Angiomax. After that, I did engage the RCA using JR4 guide. I wired using a whisper wire. I did PTCA ballooning using 3.0 x 15 mm balloon before I deployed 3.0 x 23 mm Xience LINO where the stent was positioned under fluoroscopy guidance and deployed under 14 atmospheres for 20 seconds. I post dilated the stent using 3.5 mm NC balloon. The final angiogram showed great results and the procedure was completed without any complication. POSTPROCEDURE MANAGEMENT: 1. Dual antiplatelet therapy. 2. Risk factors modifications. 3. Follow up with the patient. MMODL / IJN: [id number] /
[2019-05-07] MEDS: oxyCODONE-APAP 10-325MG 1 EACH TAB PO SCH ×3 (14:04→22:35)
[2019-05-07 15:45] VITALS: BMI 37.7
--- NOTE | 2019-05-07 17:53 | CC ---
CARDIAC CATHETERIZATION REPORT Mr. Pearson is a 68-year-old gentleman who was seen in the office for the symptoms of progressively increasing shortness of breath with minimal activities and fatigue. The patient has a previous stress test done, which showed fixed defect in the inferior wall. In view of the patient's echocardiogram reveals normal left ventricular systolic function, patient had a recent CT scan of the chest which did not show any evidence of pulmonary embolism. In view of the progressive symptoms of exertional shortness of breath and fatigue, possibly suggestive of angina equivalent, the patient was advised further evaluation with a cardiac catheterization for definitive diagnosis. DESCRIPTION OF PROCEDURE: The right groin is prepped and draped in the usual manner and the skin is infiltrated with 2% Xylocaine. The right femoral artery is entered using Seldinger technique and a #6-Hebrew sheath was placed in. Selective coronary angiography was then performed in multiple projections and the left ventricular pressures were obtained. Patient tolerated the procedure well. SEDATION: Moderate sedation was used. Sedation time was 18 minutes. HEMODYNAMICS: The left ventricular end-diastolic pressure is 10-12 mmHg prior to angiography and no gradient is noted across the aortic wall. SELECTIVE CORONARY ANGIOGRAPHY: LEFT MAIN CORONARY ARTERY is normal and patent. LEFT ANTERIOR DESCENDING CORONARY ARTERY: LAD is a good caliber blood vessel and proximal LAD has near the origin of the diagonal branch has about 40% stenosis. CIRCUMFLEX CORONARY ARTERY is a nondominant in distribution, gives rise to a good size obtuse marginal branch. The circumflex coronary artery and its branches are normal. RIGHT CORONARY ARTERY is dominant in distribution. It gives rise to a good-sized PLV branch and the PLV branch has a 85-90 percent long area of stenosis. FINAL IMPRESSION: This study reveals an 85-90 percent stenosis of the good size PLV branch. The LAD has about 40% stenosis circumflex coronary arteries are normal. RECOMMENDATIONS: Films were reviewed with Dr. Mccormick and we will proceed with a stent to the PLV branch. MMODL / IJN: [id number] /
--- NOTE | 2019-05-07 18:08 | LTR ---
DATE OF SERVICE: May 07, 2019. Dear Dr. Latif: Mr. Evaristo Pearson underwent successful stenting of the PLV branch of the right coronary artery with an excellent angiographic result reduction of stenosis from 80% to 0%. I want to thank you for allowing us to participate in his care. Please do not hesitate to call if you have any questions or concerns. Sincerely, MMRAMESHL / IRVINN: [id number] /
[2019-05-07] MEDS: METOPROLOL TARTRATE 25 MG TAB PO SCH (19:59)
[2019-05-07] MEDS ORDERED: ESCITALOPRAM 20 MG TAB PO SCH (21:00)
[2019-05-07] MEDS ORDERED: PRAVASTATIN SODIUM 40 MG TAB PO SCH (21:00)
[2019-05-07 23:06] VITALS: RESP 17; TEMP 98.2
[2019-05-08] MEDS: oxyCODONE-APAP 10-325MG 1 EACH TAB PO SCH (04:22)
[2019-05-08] MEDS ORDERED: oxyCODONE-APAP 10-325MG 1 EACH TAB PO PRN (04:32)
[2019-05-08 07:07] LABS: Basophils % (A) 1 %; Eosinophils # (A) 0.1 k/uL (0-0.7); Eosinophils % (A) 3 %; HCT 36.8 % (39.0-53.0); HGB 12.3 gm/dL (13.0-17.5); Lymphocytes # (A) 0.9 k/uL (1.0-4.8); Lymphocytes % (A) 24 %; MCH 29.8 pg (25.0-35.0); MCHC 33.4 g/dL (31.0-37.0); MCV 89.3 fL (80.0-100.0); Mean Platelet Volume 7.7; Monocytes # (A) 0.3 k/uL (0-1.0); Monocytes % (A) 8 %; Neutrophils # (A) 2.2 k/uL (1.3-7.7); Neutrophils % (A) 61 %; Platelet Count 151 k/uL (150-450); RBC 4.12 m/uL (4.30-5.90); RDW 13.5 % (11.5-15.5); WBC 3.6 k/uL (3.8-10.6)
[2019-05-08 07:26] LABS: African American GFR (CKD) >90 (>60 ml/min/1.73 sqM); Anion Gap 5 mmol/L; Blood Urea Nitrogen 14 mg/dL (9-20); Carbon Dioxide 28 mmol/L (22-30); Chloride 107 mmol/L (98-107); Glucose 93 mg/dL (74-99); Potassium 4.4 mmol/L (3.5-5.1); Sodium 140 mmol/L (137-145)
[2019-05-08] MEDS ORDERED: ASPIRIN 81 MG PO SCH (09:00)
[2019-05-08] MEDS ORDERED: FOLIC ACID 1 MG TAB PO SCH (09:00)
[2019-05-08] MEDS ORDERED: NON-FORMULARY DRUG (Omega-3 Fatty Acids/Fish Oil [Fish Oil 1,000 Mg Softgel] 1 CAP) PO SCH (09:00)
--- NOTE | 2019-05-08 10:04 | P.PN ---
Subjective Progress Note Date: 05/08/19 Discharge note This is a 68-year-old gentleman who had been experiencing progressive symptoms of exertional shortness of breath with associated fatigue, suggestive of angina equivalent, he did undergo a stress test which showed a fixed defect in the inferior wall region. He was brought to the hospital yesterday for an elective cardiac catheterization, the study revealed an 85-90% stenosis of the PLV branch. LAD 40% stenosis and circumflex normal. The films were reviewed with Dr. Troy and subsequently patient underwent angioplasty with stenting of the PLV branch. Patient was seen and examined this morning, denied any chest discomfort, no difficulty in breathing. Blood pressure 128/72 with a heart rate in the 50s, 97% on room air. White blood cell count 3.6, hemoglobin 12.3, platelet count 151. Sodium 140, potassium 4.4, BUN 14 and creatinine 0.8. EKG from this morning shows a sinus rhythm with no acute changes Objective - Vital Signs Vital signs: Vital Signs Temp 98.2 F 05/07/19 22:57 Pulse 56 L 05/08/19 04:00 Resp 17 05/08/19 04:00 BP 129/73 05/08/19 04:00 Pulse Ox 97 05/08/19 04:00 Intake & Output 05/07/19 05/08/19 05/08/19 18:59 06:59 18:59 Intake Total 640 240 458 Output Total 350 Balance 290 240 458 Weight 126.1 kg Intake: IV 640 Oral 240 458 Output: Urine 350 Other: # Voids 3 - Exam PHYSICAL EXAMINATION: GENERAL: 68-year-old gentleman in no acute distress at the time of my examination HEENT: Head is atraumatic, normocephalic. Pupils equal, round. Sclera anicter ic. Conjunctiva are clear. Mucous membranes of the mouth are moist. Neck is supple. There is no elevated jugular venous pressure. No carotid bruit is heard. HEART EXAMINATION: Heart S1, S2 normal. No murmur or gallop heard. CHEST EXAMINATION: Lungs are clear to auscultation and precussion. No chest wall tenderness is noted on palpation or with deep breathing. ABDOMEN: Soft, nontender. Bowel sounds are heard. No organomegaly noted. EXTREMITIES: 2+ peripheral pulses with no evidence of peripheral edema and no calf tenderness noted. Right groin soft, no evidence of any hematoma. NEUROLOGIC patient is awake, alert and oriented 3 . . - Labs CBC & Chem 7: 05/08/19 06:42 05/08/19 06:42 Labs: Abnormal Lab Results - Last 24 Hours (Table) 05/08/19 Range/Units 06:42 WBC 3.6 L (3.8-10.6) k/uL RBC 4.12 L (4.30-5.90) m/uL Hgb 12.3 L (13.0-17.5) gm/dL Hct 36.8 L (39.0-53.0) % Lymphocytes # 0.9 L (1.0-4.8) k/uL Assessment and Plan Plan: Assessment and plan #1 status post angioplasty and stenting of the PLV. #2 hyperlipidemia #3 Hypertension #4 sleep apnea #5 GERD Plan Patient may be discharged home today. We'll make him a follow-up appointment to see Dr. VC Marlow in the office post discharge. He will be discharged home on a spirin 81 mg daily, Pravachol 80 mg daily, Plavix 75 mg daily, Lexapro 20 mg at at bedtime, folic acid, metoprolol 25 mg one tablet by mouth twice a day, Protonix 40 mg daily, and sublingual nitroglycerin as needed for chest pain. DNP note has been reviewed, I agree with a documented findings and plan of care. Patient was seen and examined.
[2019-05-08] MEDS: METOPROLOL TARTRATE 25 MG TAB PO SCH (10:26)
[2019-05-08] MEDS ORDERED: CLOPIDOGREL 75 MG TAB PO SCH (12:00)
[2019-05-08 12:31] VITALS: BP 136/80; PULSE 62
[2019-05-08] MEDS ORDERED: PRAVASTATIN SODIUM 80 MG TAB PO SCH (21:00)
== END 2019-05-08 11:04 | disposition home or self-care (01) ==
LOC: CATHCVL 09:10 → 3SCARD 14:52 → CATHCVL 05-08 11:04
PROVIDERS: ATTEND Internal Medicine Cardiovascular Disease
DX: I25.10 Atherosclerotic heart disease of native coronary artery without angina pectoris (principal); I25.2 Old myocardial infarction; I10 Essential (primary) hypertension; F17.210 Nicotine dependence, cigarettes, uncomplicated; E78.2 Mixed hyperlipidemia; K21.9 Gastro-esophageal reflux disease without esophagitis; G47.30 Sleep apnea, unspecified; Z95.5 Presence of coronary angioplasty implant and graft; Z79.82 Long term (current) use of aspirin; Z79.02 Long term (current) use of antithrombotics/antiplatelets; Z79.899 Other long term (current) drug therapy
CPT/HCPCS: 93458; 80048; 85025; C9600; C1769 ×4; C1887; C1725 ×2; C1894; C1760; C1874; J2001; J3010; J1170; J0583; Q9967; J2250

== ENCOUNTER → 2019-10-15 | Outpatient (CLI) | payer MEDICARE, BC ==
[2019-10-15 14:44] LABS: African American GFR (CKD) >90 (>60 ml/min/1.73 sqM); Blood Urea Nitrogen 17 mg/dL (9-20); Non-African American GFR(CKD) 84 (>60 ml/min/1.73 sqM)
--- NOTE | 2019-10-15 16:46 | CT ---
EXAMINATION TYPE: CT angio head neck DATE OF EXAM: 10/15/2019 HISTORY: Facial pain and pulse sensation in ears COMPARISON: None CT DLP: 366.44 mGycm. Automated Exposure Control for Dose Reduction was Utilized. TECHNIQUE: CTA scan of the neck is performed without and with IV Contrast, patient injected with 65 mL of Isovue 370, axial images are obtained, coronal and sagittal reformatted images are reviewed. Th ree-D reconstructed images are created on an independent workstation and reviewed. Source images are reviewed. FINDINGS: Carotid/Vascular Structures: There is a three-vessel arch. Carotid bifurcations appear normal without significant flow-limiting stenosis. Some mild narrowing of the right external carotid artery origin may be present. Cervical of [place]: Vertebral basilar system appears normal. Posterior cerebral vasculature is unrema rkable. Internal carotid arteries bifurcate normally into A1 and M1 segments. A2 segments are normal. The anterior communicating artery is patent. . Right posterior communicating artery is patent. Other: Portion of the thyroid visualized is normal. There is some vascular calcification in the aorta . IMPRESSION: 1. No flow-limiting stenosis bilateral carotid bifurcations. 2. Normal [place] of [place]
--- NOTE | 2019-10-15 17:36 | CT ---
EXAMINATION TYPE: CT brain wo/w con DATE OF EXAM: 10/15/2019 COMPARISON: None INDICATION: Facial pain and pulse sensation in ears DLP: 2489.41 mGycm, Automated exposure control for dose reduction was used. CONTRAST: None CT of the brain is performed utilizing 3 mm thick sections through the posterior fossa and 3 mm thick sections through the remaining calvarium. Study is performed within 24 hours of arrival to the hosp [facility]. No abnormal hyperdensity is present to suggest an acute intracranial hemorrhage. No mass lesion is evident. No acute infarcts are evident. Ventricles and sulci are appropriate for the patient age. Paranasal sinuses and mastoid air cells within the [id number] are clear. No abnormal enhancement is evident. IMPRESSIONS: 1. Normal pre and postcontrast CT Brain
== END | disposition home or self-care (01) ==
LOC: RADCTMAIN 13:53
PROVIDERS: ATTEND Otolaryngology
DX: G50.1 Atypical facial pain (principal); Z88.0 Allergy status to penicillin
CPT/HCPCS: 82565; 84520; 70496; 70470; 70498; 36415; Q9967

== ENCOUNTER → 2019-11-06 | Outpatient (CLI) | payer MEDICARE, BC ==
--- NOTE | 2019-11-06 14:16 | CONS ---
CONSULTATION DATE OF SERVICE: 11/06/2019 A 68-year-old gentleman who has been evaluated in the Sleep Center for obstructive sleep apnea-hypopnea syndrome. HISTORY OF PRESENT ILLNESS/SLEEP-WAKE EVALUATION: The patient has been diagnosed with obstructive sleep apnea about 7 years ago in another institution. Since that time, he has been on treatment to be with CPAP, and he is using treatment every night for the whole night. His usual sleep schedule is from midnight until 8 a.m.; no problems with falling asleep. No TV in the bedroom. He usually sleeps on the back position. He wakes up from sleep up to 4 times with up to 4 episodes of nocturia at night. During the day, he sometimes feels sleepiness, especially afternoon. The [place] Sleepiness Scale increased to 10. He usually feels refreshed after naps. No history of hypnagogic hallucinations, sleep paralysis, or cataplexy. PAST MEDICAL HISTORY: Positive for coronary arterial disease, hypertension, hyperlipidemia, joint problems. PAST SURGICAL HISTORY: Four stent insertions to coronary arteries, bilateral total hip replacements, right knee replacement. MEDICATIONS: Lexapro, aspirin, Pravachol, metoprolol, Plavix. SOCIAL HISTORY: Positive for smoking in teenager age. Alcohol consumption none. FAMILY HISTORY: Hypertension, heart problems, hyperlipidemia, sinus problems, acid reflux. REVIEW OF SYSTEMS: Awakenings from sleep with nocturia, tiredness and sleepiness during the day. I checked patient's CPAP unit: CPAP pressure is 6 cm of water. His usage is 100% of the time for more than 4 hours, with average usage 13.3 hours per night. The machine does not have option for automatic adjustments of pressure. PHYSICAL EXAM: GENERAL: Pleasant gentleman without distress. VITAL SIGNS: BP 127/84, HR 61, RR 16, height 5 feet 11 inches, weight 281.0, body mass index 40.8, temperature 97.8, oxygen saturation at room air 94%. HEENT: PERRLA, EOMI. evaluation of oropharynx showed tongue protrudes midline. Extremely low position of soft palate. Mallampati 4. Some asymmetry of the nose, possibly a nasal septum deviation. NECK: Wide neck, 18-1/2 inches in circumference. Supple, no JVD. Thyroid is not palpable. LUNGS: Clear to percussion and to auscultation. Good air exchange. No wheezing or rhonchi. HEART: S1, S2 regular. No murmurs, gallops, or rubs. ABDOMEN: Obese, soft and nontender. Bowel sounds are present. No organomegaly appreciated. EXTREMITIES: No clubbing or cyanosis. MEDICAL TECHNOLOGIST BLOOD BANK: Awake, alert, and oriented X3. Cranial nerves 2 to 7 intact. There is no fasciculation or atrophy. noted. No focal deficits observed. IMPRESSION: 1. Obstructive sleep apnea-hypopnea syndrome for about 7 years. Patient continued to use CPAP equipment every night for the whole night. Reading from the machine showed long sleep hours, around 13.3 hours per night. The patient has awakenings from sleep up to 4 times with nocturia. He has symptoms of excessive daytime sleepiness and takes naps. The [place] Sleepiness Scale is increased to 10. Extremely low position of soft palate, Mallampati 4, wide neck. Obstructive sleep apnea-hypopnea syndrome. 2. Obesity. Body-mass index 40.8. 3. Coronary arterial disease, status post 4 stent insertions. 4. Hypertension. 5. Acid reflux. 6. Hyperlipidemia. 7. Status post bilateral total hip replacement. 8. Status post total right knee replacement. PLAN: 1. Repeat CPAP titration for re-evaluation of effective CPAP pressure at the present time. The patient wakes up from sleep with nocturia and has sleepiness during the day. 2. Watching and losing weight. 3. Sleep hygiene with regular time in bed for at least 8 hours. 4. No driving if patient feels any sleepiness. 5. I will provide the patient with all necessary prescriptions for CPAP supplies, include nasal pillow mask medium size, tube, filters. .. Thank you very much for referring this patient for consultation. Sincerely, Kaleb Viveros MD, PhD, FAASM Diplomat of [place] [employer] [place] [employer] Processing Archivist [facility] [place] MMODL / IJN: [id number] /
== END | disposition home or self-care (01) ==
LOC: SLEEP 11:14
PROVIDERS: ATTEND Internal Medicine
DX: G47.33 Obstructive sleep apnea (adult) (pediatric) (principal); I10 Essential (primary) hypertension; K21.9 Gastro-esophageal reflux disease without esophagitis; I25.10 Atherosclerotic heart disease of native coronary artery without angina pectoris; E66.9 Obesity, unspecified; Z68.41 Body mass index [BMI] 40.0-44.9, adult; Z99.89 Dependence on other enabling machines and devices; Z96.643 Presence of artificial hip joint, bilateral; Z96.653 Presence of artificial knee joint, bilateral
CPT/HCPCS: 99211

== ENCOUNTER → 2020-01-07 | Outpatient (CLI) | payer MEDICARE, BC ==
[2020-01-07 11:43] LABS: Basophils % (A) 1 %; Eosinophils # (A) 0.1 k/uL (0-0.7); Eosinophils % (A) 2 %; HCT 43.2 % (39.0-53.0); HGB 14.5 gm/dL (13.0-17.5); Lymphocytes # (A) 1.1 k/uL (1.0-4.8); Lymphocytes % (A) 22 %; MCHC 33.5 g/dL (31.0-37.0); MCV 92.5 fL (80.0-100.0); Mean Platelet Volume 7.7; Monocytes # (A) 0.4 k/uL (0-1.0); Monocytes % (A) 8 %; Neutrophils # (A) 3.4 k/uL (1.3-7.7); Neutrophils % (A) 65 %; Platelet Count 159 k/uL (150-450); RBC 4.67 m/uL (4.30-5.90); RDW 12.6 % (11.5-15.5); WBC 5.1 k/uL (3.8-10.6)
[2020-01-07 11:45] LABS: Appearance,Urine Clear (Clear); Bilirubin,Urine Negative (Negative); Blood,Urine Negative (Negative); Color,Urine Yellow; Glucose,Urine (UA) Negative (Negative); Ketones,Urine Negative (Negative); Leukocyte Esterase,Urine Negative (Negative); Nitrite,Urine Negative (Negative); PH, Urine 5.5 (5.0-8.0); Protein,Urine Trace (Negative); Specific Gravity,Urine 1.035 (1.001-1.035)
[2020-01-07 11:54] LABS: Prothrombin Time 10.4 sec (9.0-12.0)
[2020-01-07 16:40] LABS: African American GFR (CKD) 89.2 (60.0-200.0); Anion Gap 6.3 mmol/L (4.00-12.00); Calcium 9.4 mg/dL (8.7-10.3); Carbon Dioxide 27.7 mmol/L (21.6-31.8); Potassium 4.6 mmol/L (3.5-5.5)
== END | disposition home or self-care (01) ==
LOC: LABWHC1 10:29
PROVIDERS: ATTEND Family Medicine
DX: Z01.818 Encounter for other preprocedural examination (principal)
CPT/HCPCS: 36415; 80048; 81003; 85025; 85610

== ENCOUNTER → 2020-04-29 | Outpatient (CLI) | payer MEDICARE, BC ==
--- NOTE | 2020-04-29 20:05 | SFUN ---
SLEEP CENTER FOLLOW UP NOTE DATE OF SERVICE: 04/29/2020 This patient is a 69-year-old gentleman who has been followed in Sleep Center for treatment of obstructive sleep apnea-hypopnea syndrome. Recently the patient received a new CPAP unit, and he continues to use the equipment every night for the whole night. I discussed results of his recent sleep studies with the patient in detail. Diagnostic sleep study showed moderate obstructive sleep apnea-hypopnea syndrome. I checked the patient's CPAP unit and reading from the machine. The patient is using the equipment 100% of the nights for more than 4 hours. Average usage of the machine per night is about 14 hours. The patient explained that before falling asleep he is putting the machine on, and then he reads in bed. Consequently he sleeps less than this amount of hours, but he still has a sufficient amount of hours of sleep. CPAP pressure is 10 cm of water. Apnea-hypopnea index only 1.6, which is absolutely perfect. He is at the 95th percentile of leak at 12.6, which is acceptable. [place] Sleepiness Scale today is 7. MEDICATIONS: Lexapro, aspirin, Pravachol, metoprolol, Plavix. PHYSICAL EXAMINATION: GENERAL: A pleasant gentleman without distress. VITAL SIGNS: BP 104/70, HR 60, RR 16, weight 288, temperature 98.2, oxygen saturation at room air 96%. HEENT: PERRLA, EOMI. Evaluation of oropharynx showed tongue protrudes midline. Low position of soft palate. NECK: Supple. No JVD. Thyroid is not palpable. LUNGS: Clear to percussion and to auscultation. Good air exchange. No wheezing or rhonchi. HEART: S1, S2 regular. No murmurs, gallops or rubs. ABDOMEN: Obese. EXTREMITIES: No clubbing or cyanosis. SPECIAL NEEDS CHILD CAREGIVER: Awake, alert, and oriented X3. Cranial nerves 2 to 7 intact. There is no fasciculation or atrophy. noted. No focal deficits observed. IMPRESSION: 1. Obstructive sleep apnea-hypopnea syndrome. The patient demonstrated great compliance with treatment, benefitting from treatment. 2. Obesity. 3. Hypertension. 4. Coronary artery disease, status post 4 stent insertions. 5. Acid reflux. 6. Hyperlipidemia. 7. Status post bilateral total hip replacement. 8. Status post right knee replacement. PLAN: 1. The patient will continue to use CPAP equipment every night for the whole night. 2. Losing weight. 3. Sleep hygiene with regular time in bed for at least 7-1/2 hours. 4. No driving if feeling any sleepiness. 5. Prescription for all necessary CPAP supplies. Thank you very much for allowing me to participate in the management of your patient. Sincerely, Kaleb Viveros MD, PhD, FAASM Diplomat of [place] Board of Medical Specialties [place] Board of Internal Medicine [employer]fd[employer] [facility] [place] MMODL / IJN: [id number] /
== END | disposition home or self-care (01) ==
LOC: SLEEP 14:03
PROVIDERS: ATTEND Internal Medicine
DX: G47.33 Obstructive sleep apnea (adult) (pediatric) (principal); E66.9 Obesity, unspecified; I10 Essential (primary) hypertension; I25.10 Atherosclerotic heart disease of native coronary artery without angina pectoris; K21.9 Gastro-esophageal reflux disease without esophagitis; E78.5 Hyperlipidemia, unspecified; Z96.643 Presence of artificial hip joint, bilateral; Z96.651 Presence of right artificial knee joint; Z95.5 Presence of coronary angioplasty implant and graft; Z99.89 Dependence on other enabling machines and devices; Z79.82 Long term (current) use of aspirin; Z79.02 Long term (current) use of antithrombotics/antiplatelets; Z79.899 Other long term (current) drug therapy

== ENCOUNTER → 2021-04-07 | Outpatient (CLI) | payer MEDICARE, BC | END | disposition home or self-care (01) | LOC: LABWHC1 13:41 | PROVIDERS: ATTEND Internal Medicine | DX: Z20.822 Contact with and (suspected) exposure to COVID-19 (principal); J32.9 Chronic sinusitis, unspecified | CPT/HCPCS: U0003; C9803; U0005 ==

== ENCOUNTER → 2021-04-19 | Outpatient (CLI) | payer MEDICARE, BC ==
[2021-04-19 11:25] LABS: HGB 13.4 g/dL (13.0-17.0); MCH 30.9 pg (27.0-32.0); MCHC 32.7 g/dL (32.0-37.0); MCV 94.7 fL (80.0-97.0); Mean Platelet Volume 9.9 fL (9.5-12.2); Platelet Count 175 X 10*3/uL (140-440); RBC 4.33 X 10*6/uL (4.40-5.60); RDW 11.9 % (11.5-14.5); WBC 4.66 X 10*3/uL (4.50-10.00)
== END | disposition home or self-care (01) ==
LOC: LABWHC1 08:26
PROVIDERS: ATTEND Orthopaedic Surgery
DX: Z01.812 Encounter for preprocedural laboratory examination (principal); M17.12 Unilateral primary osteoarthritis, left knee; I11.9 Hypertensive heart disease without heart failure; E78.5 Hyperlipidemia, unspecified; K21.9 Gastro-esophageal reflux disease without esophagitis; Z87.891 Personal history of nicotine dependence; Z68.38 Body mass index [BMI] 38.0-38.9, adult
CPT/HCPCS: 36415; 85027; 87070

== ENCOUNTER → 2021-07-26 | Outpatient (CLI) | payer MEDICARE, BC ==
--- NOTE | 2021-07-26 15:59 | XR ---
EXAMINATION TYPE: XR chest 2V DATE OF EXAM: 07/26/2021 COMPARISON: 04/22/2018 HISTORY: 70-YEAR-OLD MALE R07.81, LEFT-SIDED CHEST PAIN AFTER FALL TECHNIQUE: Frontal and lateral views FINDINGS: Heart upper limits of normal in size. Aorta and pulmonary vasculature are within normal limits. Some strandy atelectasis in the lower lungs. Otherwise, no consolidation or pleural effusion. IMPRESSION: No acute cardiopulmonary process.
== END | disposition home or self-care (01) ==
LOC: RADXRMAIN 13:35
PROVIDERS: ATTEND Internal Medicine
DX: S29.9XXA Unspecified injury of thorax, initial encounter (principal)
CPT/HCPCS: 71046

== ENCOUNTER 2021-07-30 16:09 | Emergency (ER) | payer MEDICARE, BC ==
[2021-07-30 16:40] VITALS: BP 140/75; PULSE 61; RESP 16; TEMP 98.5
--- NOTE | 2021-07-30 17:54 | XR ---
EXAMINATION TYPE: XR ribs LT w pa chest xray DATE OF EXAM: 07/30/2021 COMPARISON: NONE HISTORY: Fall. Pain. TECHNIQUE: 5 views FINDINGS: Heart and mediastinum are normal. Lungs are clear. Diaphragm is normal. Bony thorax is inta ct. There is no pleural effusion or pneumothorax. The left ribs appear intact. There is mild spurring at the shoulder joint. IMPRESSION: No cardiopulmonary disease. No evidence of rib fracture.
--- NOTE | 2021-07-30 18:07 | ED ---
Fall HPI - General Chief Complaint: Fall Stated Complaint: rib injury Time Seen by Provider: 07/30/21 16:46 Source: patient, RN notes reviewed Mode of arrival: ambulatory Limitations: no limitations - History of Present Illness Initial Comments: Patient is a 70-year-old male presenting to the emergency department for a recheck of left rib pain. Patient states he fell on some rocks about 5 days ago. He did contact his PCP who did a chest x-ray about 4 days ago, there was no acute pulmonary process at that time. He states over the past couple days he's been having increased and left-sided rib pain and wanted a recheck. He states it does hurt to get a deep breath or cough. Movements also hurt it. He denies any fevers or chills, no neck pain. Denies any other injuries from this fall. He has no further complaints today. His vitals are stable upon arrival. - Related Data Home Medications Medication Instructions Recorded Confirmed Metoprolol Tartrate [Lopressor] 25 mg PO BID 04/08/14 05/07/19 Escitalopram [Lexapro] 20 mg PO HS 03/11/18 05/07/19 Aspirin EC [Ecotrin Low Dose] 81 mg PO DAILY 04/22/19 05/07/19 Folic Acid 0.4 mg PO DAILY 04/22/19 05/07/19 Lansoprazole [Prevacid] 30 mg PO BID PRN 04/22/19 05/05/19 [place]-3 Fatty Acids/Fish Oil [Fish 1 cap PO DAILY 04/22/19 05/07/19 Oil 1,000 mg Softgel] oxyCODONE HCL/ACETAMINOPHEN 1 tab PO QID 04/22/19 05/07/19 [Percocet 10-325 mg] Previous Rx's Medication Instructions Recorded Clopidogrel [Plavix] 75 mg PO DAILY #30 tab 05/08/19 Nitroglycerin Sl Tabs [Nitrostat] 0.4 mg SUBLINGUAL Q5M PRN #25 tab 05/08/19 Pravastatin Sodium [Pravachol] 80 mg PO HS #30 tab 05/08/19 Allergies Allergy/AdvReac Type Severity Reaction Status Date / Time Penicillins Allergy Rash/Hives Verified 07/30/21 16:40 Review of Systems ROS Statement: Those systems with pertinent positive or pertinent negative responses have been documented in the HPI. ROS Other: All systems not noted in ROS Statement are negative. Past Medical History Past Medical History: Coronary Artery Disease (CAD), Cancer, GERD/Reflux, Hyperlipidemia, Hypertension, Osteoarthritis (OA), Sleep Apnea/CPAP/BIPAP Additional Past Medical History / Comment(s): HIATAL HERNIA, hx skin cancer 2006, hx fractured back, uses CPAP. History of Any Multi-Drug Resistant Organisms: None Reported Past Surgical History: Back Surgery, Heart Catheterization With Stent, Joint Replacement, Orthopedic Surgery Additional Past Surgical History / Comment(s): Right knee arthroscopy, bilateral total hip replacements, deviated septal repair, undescended testicle surgery, 3 cardiac stents, arthroscopy bilateral knees, EGD, COLONOSCOPY. Past Anesthesia/Blood Transfusion Reactions: No Reported Reaction Date of Last Stent Placement:: 2008 Past Psychological History: No Psychological Hx Reported Smoking Status: Never smoker Past Alcohol Use History: None Reported Past Drug Use History: None Reported - Past Family History Father Family Medical History: CVA/TIA Sister(s) Family Medical History: Cancer Additional Family Medical History / Comment(s): Lung Cancer. Mother Family Medical History: Myocardial Infarction ([place]) General Exam - General Exam Comments Initial Comments: GENERAL: Patient is well-developed and well-nourished. Patient is nontoxic and in no acute distress. HEAD: Atraumatic, normocephalic. EYES: Pupils equal round and reactive to light, extraocular movements intact, sclera anicteric, conjunctiva are normal. Eyelids were unremarkable. ENT: Moist mucous membranes. NECK: Normal range of motion, supple without lymphadenopathy or JVD. No pain. LUNGS: Unlabored respirations. Breath sounds clear to auscultation bilaterally and equal. No wheezes rales or rhonchi. HEART: Regular rate and rhythm without murmurs, rubs or gallops. ABDOMEN: Soft, nontender, normoactive bowel sounds. No guarding, no rebound. No masses appreciated. : Deferred MUSCULOSKELETAL: Normal extremities with adequate strength and normal range of motion, no pitting or edema. No clubbing or cyanosis. Mild pain with palpation of the left lateral anterior ribs, there is some very small bruising present, yellow in nature. NEUROLOGICAL: Patient is alert and oriented x 3. SKIN: Warm, Dry, normal turgor, no rashes or lesions noted. Limitations: no limitations Course Vital Signs 07/30/21 16:37 Temperature 98.5 F Pulse Rate 61 Respiratory 16 Rate Blood Pressure 140/75 O2 Sat by Pulse 97 Oximetry Medical Decision Making - Medical Decision Making Patient is a 70-year-old male here for recheck of left rib injury. He fell about 5 days ago, he had a chest x-ray by his PCP about 3 days ago, showing no acute process according continues to have a sided rib pain. Wanted a recheck. X-ray today of the left ribs and chest reveal no acute process. I discussed with him this is most likely a rib contusion. Recommended ice to the area, Tylenol or Motrin for discomfort. Recommended breathing exercises once an hour while awake. He is agreeable to this and he is stable for discharge. He can follow up with his primary care. Case discussed with Dr. Pathak. Disposition Clinical Impression: Fall, Contusion of rib on left side Disposition: HOME SELF-CARE Condition: Stable Instructions (If sedation given, give patient instructions): Rib Contusion (ED) Additional Instructions: Please return to the Emergency Department if symptoms worsen or any other concerns. Recommended Tylenol or Motrin for any discomfort. May apply ice to the ribs. Use a pillow to brace when the coughing or having to bear down. Perform breathing exercises as discussed to prevent pneumonia. Follow-up with your primary care as needed. Is patient prescribed a controlled substance at d/c from ED?: No Referrals: Ankit Fitch MD [Primary Care Provider] - 1-2 days Time of Disposition: 18:07
== END 2021-07-30 18:30 | disposition home or self-care (01) ==
LOC: EC 16:09
DX: S20.212A Contusion of left front wall of thorax, initial encounter (principal); I10 Essential (primary) hypertension; E78.5 Hyperlipidemia, unspecified; I25.10 Atherosclerotic heart disease of native coronary artery without angina pectoris; M19.90 Unspecified osteoarthritis, unspecified site; K21.9 Gastro-esophageal reflux disease without esophagitis; Z79.02 Long term (current) use of antithrombotics/antiplatelets; Z79.82 Long term (current) use of aspirin; Z79.899 Other long term (current) drug therapy; Z80.1 Family history of malignant neoplasm of trachea, bronchus and lung; Z82.49 Family history of ischemic heart disease and other diseases of the circulatory system; Z85.828 Personal history of other malignant neoplasm of skin; Z88.0 Allergy status to penicillin; Z95.5 Presence of coronary angioplasty implant and graft; W19.XXXA Unspecified fall, initial encounter
CPT/HCPCS: 99284

== ENCOUNTER → 2022-02-16 | Outpatient (CLI) | payer MEDICARE, BC ==
--- NOTE | 2022-02-16 14:55 | SFUN ---
SLEEP CENTER FOLLOW UP NOTE DATE OF SERVICE: 02/16/2022 This 71-year-old gentleman has been followed in Sleep Center for treatment of obstructive sleep apnea-hypopnea syndrome. The patient continues to use his CPAP equipment every night and is getting his supplies on time. No problems with the machine, according to him. [place] Sleepiness Scale today is 7, which is normal. I checked his CPAP unit. The air filter is in very bad shape. Pressure is 10 cm of water, usage 30/30 nights for more than 4 hours, average usage 14.1 hours per night. Sometimes the patient puts the mask on while in bed and reading; feels comfortable with CPAP. Leak is 34 L/minute, which is slightly increased, but apnea-hypopnea index is totally normal at 1.4. MEDICATIONS: 1. Pravachol 80 mg once a day. 2. Lexapro 20 mg once a day. 3. Metoprolol 25 mg twice a day. PHYSICAL EXAMINATION: GENERAL: Pleasant patient in no distress. VITAL SIGNS: BP 124/77, HR 59, RR 16, weight 287.4. HEENT: PERRLA, EOMI, evaluation of oropharynx showed tongue protrudes midline. Low position of soft palate. NECK: Supple, no JVD. Thyroid is not palpable. LUNGS: Clear to percussion and to auscultation. Good air exchange. No wheezing or rhonchi. HEART: S1, S2 regular. No murmurs, gallops, or rubs. ABDOMEN: Obese. EXTREMITIES: No clubbing or cyanosis. BEEF FARMER: Awake, alert, and oriented X3. Cranial nerves 2 to 7 intact. There is no fasciculation or atrophy. noted. No focal deficits observed. IMPRESSION: 1. Obstructive sleep apnea-hypopnea syndrome. Patient demonstrated 100% compliance with treatment, benefitting from treatment. 2. Obesity. 3. Hypertension. 4. Coronary artery disease, status post 4 stent insertions. 5. Hyperlipidemia. 6. Acid reflux. 7. Status post bilateral total hip replacement. 8. Status post right knee replacement. PLAN: 1. Patient will continue to use PAP equipment every night for the whole night. 2. Sleep hygiene with regular time in bed for at least 7-1/2 to 8 hours. 3. Precautions related to driving. No driving if feeling sleepiness. 4. I will maintain all necessary prescription for PAP supplies including mask, tube, filters. 5. Watching weight. 6. Follow-up visit in 6 months or earlier if patient has any problems. Thank you very much for allowing me to participate in the management of your patient. Sincerely, Kaleb Viveros MD, PhD, FAASM Diplomat of [place] [employer] Specialties Sleep Medicine Board of [place] [employer] of Internal Medicine [employer] [facility] [place] MMRAMESHL / DOUGLAS: [id number] /
== END ==
LOC: SLEEP 13:25
PROVIDERS: ATTEND Internal Medicine
DX: G47.33 Obstructive sleep apnea (adult) (pediatric) (principal); I25.10 Atherosclerotic heart disease of native coronary artery without angina pectoris; E78.5 Hyperlipidemia, unspecified; K21.9 Gastro-esophageal reflux disease without esophagitis; Z96.643 Presence of artificial hip joint, bilateral; E66.9 Obesity, unspecified; I10 Essential (primary) hypertension; Z96.651 Presence of right artificial knee joint; Z95.5 Presence of coronary angioplasty implant and graft; Z99.89 Dependence on other enabling machines and devices; Z88.0 Allergy status to penicillin; Z87.891 Personal history of nicotine dependence

== ENCOUNTER → 2022-02-21 | Outpatient (CLI) | payer MEDICARE, BC ==
--- NOTE | 2022-02-21 18:06 | CT ---
EXAMINATION TYPE: CT soft tissue neck w con, CT tmj maxillofacial wo con CT DLP: 866.50 (accession [id number]), 371.60 (accession [id number]) mGycm, Automated exposure control fo r dose reduction was used. DATE OF EXAM: 02/21/2022 11:32 AM COMPARISON: CT head neck 10/15/2019. CLINICAL INDICATION:Male, 71 years old with history of R22.1 swelling mass lump in neck;Swelling mass /lump in neck (accession [id number]), Severe trismus (accession [id number]). Patient reports no mass per geospatial technologist. Patient reports that his jaw not opening very far. TECHNIQUE: CT Soft tissue Neck: Standard enhanced CT of the neck following intravenous administration of 100 cc of Isovue 300. Axial sections with coronal and sagittal reformats were obtained. CT TMJ Maxillofacial: Axial standard unenhanced imaging of the temporal mandibular joints. Coronal reformats were created. FINDINGS: Brain: Visualized portions are grossly unremarkable. Orbits: Unremarkable Sinuses: Mild mucosal thickening with retention cysts in the maxillary sinus and ethmoid air cells. A ntrostomy changes bilaterally. Spaces of the neck: Left palatine tonsil tonsillith measuring 4 mm. The remainder of the spaces of th e neck are symmetric. Musculoskeletal: Degenerative disc disease changes of the visualized spine are present. No evidence o f periodontal disease. The muscles of mastication are symmetric bilaterally. Lymph nodes: Multiple nonenlarged lymph nodes are seen along both anterior chains of the neck. Vascular structures: Minimal atherosclerotic calcifications of the internal carotid arteries. Thoracic Inlet/airway: Airway is patent. The lung apices are clear. Soft tissues/Thyroid: Thyroid and remainder of the soft tissues are unremarkable. Temporal mandibular joints: Temporal mandibular joints demonstrate minimal joint space narrowing on the left. There is significan t changes to the periarticular osseous structures. Osseous structures: The external auditory canal demonstrates mild amount of cerumen. The ossicles dem onstrate a normal appearance. Cochlea, vestibule and semi circular canals are unremarkable. No evide nce of carotid canal dehiscence. Two and a half turns of the cochlea are identified. The vestibular aqueduct is not enlarged. The mastoid air cells are clear. The internal auditory canal is unremarkabl e. IMPRESSION 1. No definite evidence for abscess, periodontal disease or significant abnormality. 2. The temporal mandibular joints demonstrate minimal joint space narrowing on the left without signi ficant bony changes to the mandibular condylar processes bilaterally.
== END | disposition home or self-care (01) ==
LOC: RADCTMAIN 10:24
PROVIDERS: ATTEND Otolaryngology
DX: M26.69 Other specified disorders of temporomandibular joint (principal)
CPT/HCPCS: 82565; 84520; 70486; 70491; 36415; Q9967

== ENCOUNTER 2022-04-04 05:44 | Day surgery (SDC) | payer MEDICARE, BC ==
[2022-03-31 17:43] VITALS: BMI 38.0
[2022-04-04] MEDS ORDERED: LIDOCAINE 1% (10MG/ML) FOR IV START INTRADERMA PRN (05:49)
[2022-04-04] MEDS ORDERED: LACTATED RINGERS 1,000 ML IV SCH (05:49)
[2022-04-04 06:29] VITALS: TEMP 97
[2022-04-04] MEDS ORDERED: LIDOCAINE 2% INJ 20 MG/ML (2 ML VIAL) ONE (07:05)
[2022-04-04] MEDS ORDERED: PROPOFOL 10 MG/ML 20 ML VIAL IV ONE (07:05)
--- NOTE | 2022-04-04 07:24 | P.PCN ---
Date of Procedure: 04/04/22 Procedure(s) Performed: Brief history: Patient is a pleasant 71-year-old white male scheduled for an elective upper endoscopy as well as colonoscopy as a part of evaluation of GERD and screening for colorectal neoplasia Procedure performed: Esophagogastroduodenoscopy with biopsy Colonoscopy Preoperative diagnosis: GERD Screening for colon cancer Anesthesia: MAC Procedure: After informed consent was obtained from the patient was brought into the endoscopy unit and IV sedation was administered by anesthesia under continuous monitoring. Initially upper endoscopy was done. The Olympus GF 160 video endoscope was inserted inserted into the mouth and esophagus intubated without any difficulty and was gradually advanced into the stomach and duodenum and carefully examined. The bulb and second part of the duodenum appeared normal. The scope was then withdrawn into the stomach adequately insufflated with air and upon careful examination the antrum had gastritis and biopsies were done from this area. The body, cardia and fundus appeared normal. The scope was then withdrawn into the esophagus. The GE junction was located at 40 cm to the incisors. Small sliding Hiatal hernia noted. It appeared regular with no erythema erosions or ulcerations. Rest of the esophagus appeared normal. Patient tolerated the procedure well. At this time the patient continued to remain sedation. Initial digital rectal examination was normal. Olympus CF 160 video colonoscope was then inserted into the rectum and gradually advanced to the cecum without any difficulty. Careful examination was performed as the scope was gradually being withdrawn. The prep was excellent. The cecum, ascending colon, transverse colon, descending colon, sigmoid colon and rectum appeared normal. Retroflexion was performed in the rectum and no lesions were noted. Patient tolerated the procedure well. Impression: 1. Upper endoscopy revealed small sliding type hiatal hernia, mild antral gastritis but no evidence of esophagitis or esophageal stricture 2. Colonoscopy was within normal limits with no evidence of colorectal neoplasia Recommendations: Findings of this examination were discussed with the patient as well as his family. He was advised to follow with the biopsy results. Recommend repeat screening colonoscopy in 10 years.
[2022-04-04] MEDS ORDERED: LACTATED RINGERS 1,000 ML IV ONE (07:25)
[2022-04-04 07:42] VITALS: BP 105/67; PULSE 54; RESP 17
== END 2022-04-04 08:00 | disposition home or self-care (01) ==
LOC: ORWHC2ENDO 05:44
PROVIDERS: ATTEND Internal Medicine Gastroenterology
DX: Z12.11 Encounter for screening for malignant neoplasm of colon (principal); K21.9 Gastro-esophageal reflux disease without esophagitis; K44.9 Diaphragmatic hernia without obstruction or gangrene; E66.9 Obesity, unspecified; Z99.89 Dependence on other enabling machines and devices; Z88.0 Allergy status to penicillin; K29.50 Unspecified chronic gastritis without bleeding
CPT/HCPCS: 43239; 88305; J2704; J2001; G0121

== ENCOUNTER 2022-06-12 06:00 | Inpatient (IN) | payer MEDICARE, BC ==
--- NOTE | 2022-06-12 06:18 | ED ---
Chest Pain HPI - General Chief Complaint: Chest Pain Stated Complaint: Chest Pain Time Seen by Provider: 06/12/22 06:07 Source: patient, RN notes reviewed, old records reviewed Mode of arrival: EMS Limitations: no limitations - History of Present Illness Initial Comments: Patient is a 71-year-old male with history of hypertension, cardiac disease, presenting to emergency Department via EMS with complaints of chest pain 2 weeks. Patient states over the course the 2 weeks he's been having intermittent chest tightness, shortness of breath. This morning he woke up he felt like the pressure was worse, he took a subungual nitro, did improve his symptoms so he got worried and called EMS. Patient was then given a full-strength aspirin and 2 more nitro as the EMS prior to arrival. He states his pressure has improved slightly. She denies any new coughs, no fevers or chills. He has been having worsening GERD symptoms throughout this 2 weeks as well. He admits to nausea, no vomiting, no abdominal pain. His blanket binder is Dr. Troy, he has a stress test scheduled for 2 weeks. He has history of 5 stents, takes a baby aspirin daily. He denies any new changes to his medications. Patient is no further complaints. - Related Data Home Medications Medication Instructions Recorded Confirmed Metoprolol Tartrate [Lopressor] 25 mg PO BID 04/08/14 04/04/22 Escitalopram [Lexapro] 20 mg PO HS 03/11/18 04/04/22 Aspirin EC [Ecotrin Low Dose] 81 mg PO HS 04/22/19 04/04/22 HYDROcodone/APAP 10-325MG [[place] 1 tab PO Q6HR PRN 03/31/22 04/04/22 10-325] Omeprazole [PriLOSEC] 20 mg PO HS 03/31/22 04/04/22 Naloxone HCl 4 mg NS ONCE PRN 06/12/22 06/12/22 Pravastatin Sodium [Pravachol] 80 mg PO HS 06/12/22 06/12/22 diazePAM [Valium] 10 mg PO HS PRN 06/12/22 06/12/22 Previous Rx's Medication Instructions Recorded Nitroglycerin Sl Tabs [Nitrostat] 0.4 mg SUBLINGUAL Q5M PRN #25 tab 05/08/19 Allergies Allergy/AdvReac Type Severity Reaction Status Date / Time Penicillins Allergy Rash/Hives Verified 06/12/22 08:08 Review of Systems ROS Statement: Those systems with pertinent positive or pertinent negative responses have been documented in the HPI. ROS Other: All systems not noted in ROS Statement are negative. EKG Findings - EKG Comments: EKG Findings:: Sinus rhythm, minimal ST depression, borderline EKG, similar to previous on 05/08/19. Ventricular rate 71, HI interval 180, QT 406. Past Medical History Past Medical History: Coronary Artery Disease (CAD), Cancer, GERD/Reflux, Hyperlipidemia, Hypertension, Osteoarthritis (OA), Sleep Apnea/CPAP/BIPAP Additional Past Medical History / Comment(s): Hiatal hernia, hx skin cancer 2006, hx fractured back, uses CPAP. c/o pain w/ swallowing occ. History of Any Multi-Drug Resistant Organisms: None Reported Past Surgical History: Back Surgery, Heart Catheterization With Stent, Joint Replacement, Orthopedic Surgery Additional Past Surgical History / Comment(s): Microdiscectomy, bilateral total hip replacements, deviated septum repair, undescended testicle surgery, 3 cardiac stents and later 2 more stents, arthroscopy bilateral knees, EGD, COLONOSCOPY. Total bilat knees. Past Anesthesia/Blood Transfusion Reactions: No Reported Reaction Date of Last Stent Placement:: 2008 Smoking Status: Former smoker - Past Family History Father Family Medical History: CVA/TIA Sister(s) Family Medical History: Cancer Additional Family Medical History / Comment(s): Lung Cancer, mets to brain. Mother Family Medical History: Myocardial Infarction ([place]) General Exam - General Exam Comments Initial Comments: GENERAL: Patient is well-developed and well-nourished. Patient is nontoxic and in no acute distress. HEAD: Atraumatic, normocephalic. EYES: Pupils equal round and reactive to light, extraocular movements intact, sclera anicteric, conjunctiva are normal. Eyelids were unremarkable. ENT: Nares patent, oropharynx clear without exudates. Moist mucous membranes. NECK: Normal range of motion, supple without lymphadenopathy or JVD. LUNGS: Unlabored respirations. Breath sounds clear to auscultation bilaterally and equal. No wheezes rales or rhonchi. HEART: Regular rate and rhythm without murmurs, rubs or gallops. ABDOMEN: Soft, nontender, normoactive bowel sounds. No guarding, no rebound. No masses appreciated. : Deferred MUSCULOSKELETAL: Normal extremities with adequate strength and normal range of motion, no pitting or edema. No clubbing or cyanosis. NEUROLOGICAL: Patient is alert and oriented x 3. Motor and sensory are also intact. Cranial nerves II through XII grossly intact. Symmetrical smile. Normal speech, normal gait. PSYCH: Normal mood, normal affect. SKIN: Warm, Dry, normal turgor, no rashes or lesions noted. Limitations: no limitations Course Vital Signs 06/12/22 06/12/22 06/12/22 06:03 06:11 07:38 Temperature 98.2 F Pulse Rate 73 58 L Respiratory 18 16 Rate Blood Pressure 135/79 141/73 O2 Sat by Pulse 94 L 96 Oximetry Chest Pain MDM - [facility] Patient 71-year-old male with cardiac history here with chest pain increasing over the past 2 weeks. Worse today. Initial vitals are stable. EKG showing nonspecific changes. Lab studies are within normal limits including a negative first troponin. Given patient's cardiac history and worsening of his symptoms, did recommend observation for cardiac consult. I spoke with Dr. Goldman who accepts admission with consult to Dr. Troy. Disposition Clinical Impression: Chest pain Disposition: ADMITTED IP TO THIS HOSP Condition: Stable Referrals: Jai Rodgers MD [Primary Care Provider] - 1-2 days Decision Date: 06/12/22 Decision Time: 08:21
[2022-06-12 06:40] LABS: Basophils % (A) 1 %; Eosinophils # (A) 0.1 k/uL (0-0.7); Eosinophils % (A) 2 %; HCT 40.6 % (39.0-53.0); HGB 13.6 gm/dL (13.0-17.5); Lymphocytes # (A) 1.4 k/uL (1.0-4.8); Lymphocytes % (A) 30 %; MCH 30.9 pg (25.0-35.0); MCHC 33.4 g/dL (31.0-37.0); MCV 92.4 fL (80.0-100.0); Mean Platelet Volume 7.4; Monocytes # (A) 0.5 k/uL (0-1.0); Monocytes % (A) 10 %; Neutrophils # (A) 2.5 k/uL (1.3-7.7); Neutrophils % (A) 53 %; Platelet Count 158 k/uL (150-450); RDW 12.3 % (11.5-15.5); WBC 4.7 k/uL (3.8-10.6)
--- NOTE | 2022-06-12 06:45 | XR ---
EXAMINATION TYPE: XR chest 2V DATE OF EXAM: 06/12/2022 COMPARISON: 07/30/2021 HISTORY: Chest pain TECHNIQUE: FINDINGS: There is no heart failure nor confluent pneumonic infiltrate. Costophrenic angles are clear . There are chest leads. Bony thorax is intact. IMPRESSION: No active cardiopulmonary disease. Normal heart. No change.
[2022-06-12] MEDS ORDERED: FAMOTIDINE 20 MG/2 ML VIAL IV STA (06:54)
[2022-06-12 07:18] LABS: ALT 22 U/L (4-49); AST 23 U/L (17-59); African American GFR (CKD) >90 (>60 ml/min/1.73 sqM); Alkaline Phosphatase 59 U/L (38-126); Anion Gap 9 mmol/L; Blood Urea Nitrogen 17 mg/dL (9-20); Calcium 8.7 mg/dL (8.4-10.2); Carbon Dioxide 25 mmol/L (22-30); Chloride 106 mmol/L (98-107); Glucose 106 mg/dL (74-99); Non-African American GFR(CKD) >90 (>60 ml/min/1.73 sqM); Sodium 140 mmol/L (137-145); Total Bilirubin 0.3 mg/dL (0.2-1.3); Total Protein 6.4 g/dL (6.3-8.2)
[2022-06-12] MEDS ORDERED: NITROGLYCERIN SL TABS 0.4 MG TAB SUBLINGUAL PRN ×2 (08:03→08:16)
[2022-06-12] MEDS ORDERED: DIAZEPAM 10 MG PO PRN (08:16)
[2022-06-12] MEDS ORDERED: ACETAMINOPHEN TAB 325 MG TAB PO PRN (08:17)
[2022-06-12] MEDS: METOPROLOL TARTRATE 25 MG TAB PO SCH ×2 (08:56→20:38)
[2022-06-12] MEDS: HYDROcodone/APAP 10-325MG 1 EACH TAB PO PRN ×3 (08:58→20:39)
[2022-06-12] MEDS ORDERED: MAG HYDROX/AL HYDROX/SIMETH 30 ML, HYOSCYAMINE ELIXIR 10 ML, LIDOCAINE VISCOUS 2% 10 ML PO ONE ×3 (10:48)
--- NOTE | 2022-06-12 11:35 | P.HPIM ---
History of Present Illness H&P Date: 06/12/22 History of Presenting Illness: Patient is a very pleasant 71-year-old male with a past medical history of CAD with stents, hypertension, hyperlipidemia, GERD, and obstructive sleep apnea CPAP dependent. He presented to the emergency department with a chief complaint of chest pain/discomfort. Patient reports he has been experiencing intermittent chest pain/discomfort described as a tightness accompanied by shortness of breath off and on for the past couple of weeks which she believed improved with rest and worsened with activity. Patient states he has been under evaluation by his PCP and client support consultant and is scheduled to undergo a stress test on 06/26/22. Patient reports this morning this pain was severe and awoke him from sleep around 6:30 AM and was again accompanied by nausea and shortness of breath. Patient denies having any recent infections or exposure to known ill contacts, fevers, chills, diaphoresis, palpitations, cough or congestion, abdominal pain, vomiting, or experiencing any numbness/tingling/weakness/swelling in his extremities. He underwent full evaluation in the emergency department. Vital signs were stable. CBC and CMP were unremarkable. Troponin was negative at less than 0.012 and pro-BMP was 55. EKG revealed normal sinus rhythm at 71 bpm with no noted T-wave or ST abnormalities showing no signs of acute ischemia. Chest x-ray was negative for acute cardiopulmonary process. Patient being admitted under our services with consultation to cardiology. Review of systems: Pertinent positives and negatives as discussed in HPI, a complete review of systems was performed and all other systems are negative. Physical exam: Vital signs reviewed and stable. General: Nontoxic, no distress and appears stated age. Derm: Skin warm and dry, normal coloration for ethnicity. Head: Atraumatic, normocephalic and symmetric. Eyes: EOMs intact, no lid lag, and anicteric sclera Mouth: no lip lesions, mucus membranes moist Cardiovascular: regular rate and rhythm with normal S1S2, systolic murmur, positive posterior tibial pulses bilaterally, and cap refill < 2 seconds. Lungs: Respirations even, regular, and unlabored on room air. Lungs CTA bilaterally, no rhonchi, no rales, no wheezing, and no accessory muscle usage. Abdominal: soft, nontender to palpation, no guarding, no appreciable organomegaly Ext: ROM intact. No gross muscle atrophy, no edema, no contractures Neuro: Speech clear, face symmetrical and CN II-XII grossly intact with no noted focal neuro deficits Psych: Alert and oriented to person, place, time, and situation. Appropriate and pleasant affect. Assessment and Plan of Care: Chest pain, rule out acute coronary event History of CAD with previous stenting Hypertension Hyperlipidemia -Cardiology consult, appreciate further recommendations -Telemetry monitoring -Trend troponins -Cardiac diet, NPO at midnight -Patient to be placed on aspirin 3 and 25 mg daily and to continue cardiac medication regimen with metoprolol and pravastatin. -Lipid profile with a.m. labs. -Echocardiogram The patient is admitted with an anticipated less than 2 midnight stay for evaluation of chest pain. CODE STATUS: Full code DVT prophylaxis: Heparin Discussed with: Patient Anticipated discharge date: 1-[address]: Home A total of 45 minutes was spent on the care of this complex patient more than 50% of the time was spent in counseling and care coordination. I reviewed the documentation as provided by the KIMBER above, who is the original author of this note. I agree with the documented assessment and plan, with the following changes: none Past Medical History Past Medical History: Coronary Artery Disease (CAD), Cancer, GERD/Reflux, Hyperlipidemia, Hypertension, Osteoarthritis (OA), Sleep Apnea/CPAP/BIPAP Additional Past Medical History / Comment(s): Hiatal hernia, hx skin cancer 2006, hx fractured back, uses CPAP. c/o pain w/ swallowing occ. History of Any Multi-Drug Resistant Organisms: None Reported Past Surgical History: Back Surgery, Heart Catheterization With Stent, Joint Replacement, Orthopedic Surgery Additional Past Surgical History / Comment(s): Microdiscectomy, bilateral total hip replacements, deviated septum repair, undescended testicle surgery, 3 cardiac stents and later 2 more stents, arthroscopy bilateral knees, EGD, COLONOSCOPY. Total bilat knees. Past Anesthesia/Blood Transfusion Reactions: No Reported Reaction Date of Last Stent Placement:: 2008 Smoking Status: Former smoker - Past Family History Father Family Medical History: CVA/TIA Sister(s) Family Medical History: Cancer Additional Family Medical History / Comment(s): Lung Cancer, mets to brain. Mother Family Medical History: Myocardial Infarction ([place]) Medications and Allergies Home Medications Medication Instructions Recorded Confirmed Type Metoprolol Tartrate [Lopressor] 25 mg PO BID 04/08/14 06/12/22 History Escitalopram [Lexapro] 20 mg PO HS 03/11/18 06/12/22 History Aspirin EC [Ecotrin Low Dose] 81 mg PO HS 04/22/19 06/12/22 History Nitroglycerin Sl Tabs [Nitrostat] 0.4 mg SUBLINGUAL Q5M PRN #25 tab 05/08/19 06/12/22 Rx HYDROcodone/APAP 10-325MG [[place] 1 tab PO Q6HR PRN 03/31/22 06/12/22 History 10-325] Omeprazole [PriLOSEC] 20 mg PO HS 03/31/22 06/12/22 History Naloxone HCl 4 mg NS ONCE PRN 06/12/22 06/12/22 History Pravastatin Sodium [Pravachol] 80 mg PO HS 06/12/22 06/12/22 History diazePAM [Valium] 10 mg PO HS PRN 06/12/22 06/12/22 History Allergies Allergy/AdvReac Type Severity Reaction Status Date / Time Penicillins Allergy Rash/Hives Verified 06/12/22 08:08 Physical Exam Osteopathic Statement: *. No significant issues noted on an osteopathic structural exam other than those noted in the History and Physical/Consult. Vitals: Vital Signs Temp Pulse Resp BP Pulse Ox 06/12/22 07:38 58 L 16 141/73 96 06/12/22 06:11 98.2 F 06/12/22 06:03 73 18 135/79 94 L Intake and Output 06/11/22 06/12/22 06/12/22 22:59 06:59 14:59 Other: Weight 129.274 kg Results CBC & Chem 7: 06/12/22 06:26 06/12/22 06:52 Labs: Abnormal Lab Results - Last 24 Hours (Table) 06/12/22 Range/Units 06:52 Glucose 106 H (74-99) mg/dL
--- NOTE | 2022-06-12 12:43 | P.CRDCN ---
History of Present Illness Consult date: 06/12/22 Chief complaint: CP History of present illness: Patient is a very pleasant 8-year-old gentleman with CAD and prior stenting with the loss the stent was performed in 2017 for the PLV branch of the RCA as well as hypertension and dyslipidemia presented for further evaluation of chest discomfort. He just was seen in the office recently where he was experiencing intermittent episodes of chest discomfort and he scheduled to undergo a stress test. Unfortunately since then he has been experiencing chest discomfort/pressure seems to be constant and he yesterday nitroglycerin with improvement in the symptoms. Currently is having about 3/10 in intensity chest discomfort. The discomfort is of the chest with no radiation and no associative symptoms of sweating or shortness of breath or dizziness or lightheadedness or any feeling of heart racing or fluttering or presyncope or syncope. The EKG showed sinus rhythm without significant ST or T-wave abnormalities. The blood work came in to be unremarkable intima troponin. The patient would like a definite answer. With that being seated going to pursue with a heart catheterization. Is not unreasonable giving the ongoing chest discomfort. Past Medical History Past Medical History: Coronary Artery Disease (CAD), Cancer, GERD/Reflux, Hyperlipidemia, Hypertension, Osteoarthritis (OA), Sleep Apnea/CPAP/BIPAP Additional Past Medical History / Comment(s): Hiatal hernia, hx skin cancer 2006, hx fractured back, uses CPAP. c/o pain w/ swallowing occ. History of Any Multi-Drug Resistant Organisms: None Reported Past Surgical History: Back Surgery, Heart Catheterization With Stent, Joint Replacement, Orthopedic Surgery Additional Past Surgical History / Comment(s): Microdiscectomy, bilateral total hip replacements, deviated septum repair, undescended testicle surgery, 3 cardiac stents and later 2 more stents, arthroscopy bilateral knees, EGD, COLONOSCOPY. Total bilat knees. Past Anesthesia/Blood Transfusion Reactions: No Reported Reaction Date of Last Stent Placement:: 2008 Smoking Status: Former smoker - Past Family History Father Family Medical History: CVA/TIA Sister(s) Family Medical History: Cancer Additional Family Medical History / Comment(s): Lung Cancer, mets to brain. Mother Family Medical History: Myocardial Infarction ([place]) Medications and Allergies Home Medications Medication Instructions Recorded Confirmed Type Metoprolol Tartrate [Lopressor] 25 mg PO BID 04/08/14 06/12/22 History Escitalopram [Lexapro] 20 mg PO HS 03/11/18 06/12/22 History Aspirin EC [Ecotrin Low Dose] 81 mg PO HS 04/22/19 06/12/22 History Nitroglycerin Sl Tabs [Nitrostat] 0.4 mg SUBLINGUAL Q5M PRN #25 tab 05/08/19 06/12/22 Rx HYDROcodone/APAP 10-325MG [[place] 1 tab PO Q6HR PRN 03/31/22 06/12/22 History 10-325] Omeprazole [PriLOSEC] 20 mg PO HS 03/31/22 06/12/22 History Naloxone HCl 4 mg NS ONCE PRN 06/12/22 06/12/22 History Pravastatin Sodium [Pravachol] 80 mg PO HS 06/12/22 06/12/22 History diazePAM [Valium] 10 mg PO HS PRN 06/12/22 06/12/22 History Allergies Allergy/AdvReac Type Severity Reaction Status Date / Time Penicillins Allergy Rash/Hives Verified 06/12/22 08:08 Physical Exam Vitals: Vital Signs Temp Pulse Resp BP Pulse Ox 06/12/22 11:33 49 L 16 142/83 97 06/12/22 08:55 58 L 16 154/86 95 06/12/22 07:38 58 L 16 141/73 96 06/12/22 06:11 98.2 F 06/12/22 06:03 73 18 135/79 94 L Intake and Output 06/11/22 06/12/22 06/12/22 22:59 06:59 14:59 Other: Weight 129.274 kg - Constitutional General appearance: no acute distress - Respiratory Respiratory: bilateral: CTA - Cardiovascular Rhythm: regular Heart sounds: normal: S1, S2 Abnormal Heart Sounds: systolic murmur Results 06/12/22 06:26 06/12/22 06:52 Cardiac Enzymes 06/12/22 06/12/22 06/12/22 Range/Units 06:52 06:52 09:11 AST 23 (17-59) U/L Troponin I <0.012 <0.012 (0.000-0.034) ng/mL CBC 06/12/22 Range/Units 06:26 WBC 4.7 (3.8-10.6) k/uL RBC 4.40 (4.30-5.90) m/uL Hgb 13.6 (13.0-17.5) gm/dL Hct 40.6 (39.0-53.0) % Plt Count 158 (150-450) k/uL Comprehensive Metabolic Panel 06/12/22 Range/Units 06:52 Sodium 140 (137-145) mmol/L Potassium 4.0 (3.5-5.1) mmol/L Chloride 106 (98-107) mmol/L Carbon Dioxide 25 (22-30) mmol/L BUN 17 (9-20) mg/dL Creatinine 0.80 (0.66-1.25) mg/dL Glucose 106 H (74-99) mg/dL Calcium 8.7 (8.4-10.2) mg/dL AST 23 (17-59) U/L ALT 22 (4-49) U/L Alkaline Phosphatase 59 (38-126) U/L Total Protein 6.4 (6.3-8.2) g/dL Albumin 4.0 (3.5-5.0) g/dL Current Medications Generic Name Dose Route Start Last Admin Trade Name Freq PRN Reason Stop Dose Admin Acetaminophen 650 mg 06/12/22 08:17 Acetaminophen Tab 325 Mg Tab PO Q6HR PRN Mild Pain or Fever > 100.5 Hydrocodone Bitart/Acetaminophen 1 each 06/12/22 08:16 06/12/22 08:58 Hydrocodone/Apap 10-325mg 1 Each Tab PO 1 each Q6HR PRN Administration Pain Aspirin 325 mg 06/13/22 09:00 Aspirin 325 Mg Tab PO DAILY BORIS Heparin Sodium (Porcine) 5,000 unit 06/12/22 16:00 Heparin Sodium,Porcine/Pf 5,000 Unit/0.5 Ml Syringe SQ Q8HR BORIS Metoprolol Tartrate 25 mg 06/12/22 09:00 06/12/22 08:56 Metoprolol Tartrate 25 Mg Tab PO 25 mg BID BORIS Administration Nitroglycerin 0.4 mg 06/12/22 08:16 Nitroglycerin Sl Tabs 0.4 Mg Tab SUBLINGUAL Q5M PRN Chest Pain Pantoprazole Sodium 40 mg 06/12/22 21:00 Pantoprazole 40 Mg Tablet PO HS BORIS Pravastatin Sodium 80 mg 06/12/22 21:00 Pravastatin Sodium 80 Mg Tab PO HS BORIS Intake and Output 06/11/22 06/12/22 06/12/22 22:59 06:59 14:59 Other: Weight 129.274 kg 06/12/22 06:26 06/12/22 06:52 Assessment and Plan Assessment: Assessment #1 ongoing chest discomfort #2 CAD with prior stenting #3 multiple risk factors for CAD Plan #1 continue the current medical regimen #2 proceed with coronary angiogram the next 12-24 hours for answer #3 follow-up with the patient
[2022-06-12] MEDS: HEPARIN SODIUM,PORCINE/PF 5,000 UNIT/0.5 ML SYRINGE SQ SCH (15:11)
[2022-06-12] MEDS: PANTOPRAZOLE 40 MG TABLET PO SCH (20:38)
[2022-06-12] MEDS: PRAVASTATIN SODIUM 80 MG TAB PO SCH (20:38)
[2022-06-12] MEDS ORDERED: NON FORMULARY DRUG (Aspirin Ec 81 MG Tablet.Dr) PO SCH (21:00)
[2022-06-13] MEDS: HEPARIN SODIUM,PORCINE/PF 5,000 UNIT/0.5 ML SYRINGE SQ SCH ×4 (01:13→23:54)
[2022-06-13] MEDS: HYDROcodone/APAP 10-325MG 1 EACH TAB PO PRN ×4 (03:35→20:28)
[2022-06-13 05:23] LABS: Basophils % (A) 1 %; Eosinophils # (A) 0.1 k/uL (0-0.7); Eosinophils % (A) 1 %; HCT 42.1 % (39.0-53.0); HGB 13.8 gm/dL (13.0-17.5); Lymphocytes % (A) 22 %; MCH 30.8 pg (25.0-35.0); MCHC 32.9 g/dL (31.0-37.0); MCV 93.8 fL (80.0-100.0); Mean Platelet Volume 7.3; Monocytes # (A) 0.5 k/uL (0-1.0); Monocytes % (A) 10 %; Neutrophils # (A) 2.9 k/uL (1.3-7.7); Neutrophils % (A) 62 %; Platelet Count 167 k/uL (150-450); RBC 4.49 m/uL (4.30-5.90); RDW 12.8 % (11.5-15.5); WBC 4.7 k/uL (3.8-10.6)
[2022-06-13 05:42] LABS: African American GFR (CKD) >90 (>60 ml/min/1.73 sqM); Anion Gap 10 mmol/L; Blood Urea Nitrogen 16 mg/dL (9-20); Calcium 9.3 mg/dL (8.4-10.2); Carbon Dioxide 25 mmol/L (22-30); Chloride 104 mmol/L (98-107); Glucose 99 mg/dL (74-99); Magnesium 2.1 mg/dL (1.6-2.3); Non-African American GFR(CKD) 87 (>60 ml/min/1.73 sqM); Potassium 4.4 mmol/L (3.5-5.1); Sodium 139 mmol/L (137-145)
--- NOTE | 2022-06-13 07:17 | P.PN ---
Subjective Progress Note Date: 06/13/22 Principal diagnosis: Chest pain The patient is a pleasant 71-year-old gentleman with a past medical history significant for coronary artery disease with prior stenting who was admitted to the hospital with a chest discomfort concerning for angina. He was seen this morning. He continues to have ongoing chest discomfort worse with exertion. With that being sedated and with the patient would like a definitive diagnosis and going to pursue with a coronary angiogram. The proc edure in details was explained to the patient. Objective - Vital Signs Vital signs: Vital Signs Temp 97.5 F L 06/13/22 00:54 Pulse 51 L 06/13/22 00:54 Resp 16 06/13/22 00:54 BP 145/79 06/13/22 00:54 Pulse Ox 97 06/13/22 00:54 FiO2 Intake & Output 06/12/22 06/13/22 06/13/22 18:59 06:59 18:59 Weight 129.274 kg Other: # Voids 2 - Constitutional General appearance: Present: no acute distress - Respiratory Respiratory: bilateral: CTA - Cardiovascular Rhythm: regular Heart sounds: normal: S1, S2 - Labs CBC & Chem 7: 06/13/22 04:40 06/13/22 04:40 Labs: Abnormal Lab Results - Last 24 Hours (Table) 06/12/22 Range/Units 06:52 Glucose 106 H (74-99) mg/dL Assessment and Plan Assessment: Assessment #1 ongoing chest discomfort #2 CAD with prior stenting #3 multiple risk factors for CAD Plan #1 continue the current medical regimen #2 proceed with coronary angiogram the next 12-24 hours for answer #3 follow-up with the patient
[2022-06-13] MEDS: ASPIRIN 325 MG TAB PO SCH (07:39)
[2022-06-13] MEDS: METOPROLOL TARTRATE 25 MG TAB PO SCH ×2 (07:39→20:28)
[2022-06-13 09:17] LABS: Chol/HDL Ratio 3.45 Ratio; LDL Cholesterol,Calculated 90.6 mg/dL (0.0-131.0)
--- NOTE | 2022-06-13 10:03 | CA ---
Transthoracic Echo Report Name: Evaristo Pearson Age: 71 Gender: M : 1950 Exam Date: 06/12/2022 13:45 Exam Location: [facility] Ht (in): 72 Wt (lb): 285 Ordering Physician: Zac Cortez Attending/Referring Phys: [employer] Meena Nielsen RDCS Procedure CPT: Indications: Evaluate structure and function Cardiac Hx: Technical Quality: Technically difficult study Contrast 1: Lumason Total Dose (mL): 4 Contrast 2: Total Dose (mL): MEASUREMENTS (Male / Female) Normal Values 2D ECHO LV Diastolic Diameter PLAX 4.7 cm 4.2 - 5.9 / 3.9 - 5.3 cm LV Systolic Diameter PLAX 2.9 cm IVS Diastolic Thickness 1.6 cm 0.6 - 1.0 / 0.6 - 0.9 cm LVPW Diastolic Thickness 1.6 cm 0.6 - 1.0 / 0.6 - 0.9 cm LV Relative Wall Thickness 0.7 RV Internal Dim ED PLAX 5.1 cm LA Volume 64.8 cm??? 18 - 58 / 22 - 52 cm??? M-MODE Aortic Root Diameter MM 3.8 cm LA Systolic Diameter MM 4.5 cm LA Ao Ratio MM 1.2 AV Cusp Separation MM 2.4 cm DOPPLER AV Peak Velocity 124.9 cm/s AV Peak Gradient 6.2 mmHg LVOT Peak Velocity 108.3 cm/s LVOT Peak Gradient 4.7 mmHg MV Area PHT 2.6 cm??? Mitral E Point Velocity 55.6 cm/s Mitral A Point Velocity 73.3 cm/s Mitral E to A Ratio 0.8 MV Deceleration Time 294.0 ms FINDINGS Left Ventricle Moderately increased left ventricular wall thickness. Normal left ventricular systolic function with no obvious regional wall motion abnormalities. Left ventricular ejection fraction is estimated at 55-60 %. Normal left ventricular diastolic filling pattern. Right Ventricle Moderate right ventricular dilatation. Right Atrium Right atrium not well visualized. Left Atrium Mildly increased left atrial volume. Mildly increased left atrial area. Mitral Valve Structurally normal mitral valve. Mild mitral regurgitation. Aortic Valve No aortic valve stenosis or regurgitation. Tricuspid Valve Mild tricuspid regurgitation. Pulmonic Valve Structurally normal pulmonic valve. Pericardium No pericardial effusion. Aorta Normal size aortic root and proximal ascending aorta. CONCLUSIONS Technically difficult study for interpretation. Poor acoustic windows Normal left ventricular dimension and systolic function Previewed by: Dr. Nj Mccormick MD (Electronically Signed) Final Date: 13 June 2022 10:02
--- NOTE | 2022-06-13 10:17 | P.PN ---
Subjective Progress Note Date: 06/13/22 Hospital course: Patient is a very pleasant 71-year-old male with a past medical history of CAD with stents, hypertension, hyperlipidemia, GERD, and obstructive sleep apnea CPAP dependent. He presented to the emergency department with a chief complaint of chest pain/discomfort. Patient reports he has been experiencing intermittent chest pain/discomfort described as a tightness accompanied by shortness of breath off and on for the past couple of weeks which she believed improved with rest and worsened with activity. 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 Patient reports this morning this pain was severe and awoke him from sleep around 6:30 AM and was again accompanied by nausea and shortness of breath. Patient denies having any recent infections or exposure to known ill contacts, fevers, chills, diaphoresis, palpitations, cough or congestion, abdominal pain, vomiting, or experiencing any numbness/tingling/weakness/swelling in his extremities. He underwent full evaluation in the emergency department. Vital signs were stable. CBC and CMP were unremarkable. Troponin was negative at less than 0.012 and pro-BMP was 55. EKG revealed normal sinus rhythm at 71 bpm with no noted T-wave or ST abnormalities showing no signs of acute ischemia. Chest x-ray was negative for acute cardiopulmonary process. Patient being admitted under our services with consultation to cardiology. Troponins trended overnight and all remain negative at less than 0.0123 draws. Lipid profile was unremarkable. Echocardiogram revealing preserved EF of 55-60% with no significant valvular or structural abnormalities. Repeat morning labs unremarkable. Patient continues to report a dull aching pain to mid sternal chest. Cardiology evaluated and plan to take patient for cardiac cath later today. Physical exam: Patient seen and fully evaluated at bedside this morning. Patient continues to report a dull aching pain and midsternal chest. Cardiology evaluating and planning to take patient for cardiac cath later today. Patient denies having any dizziness, lightheadedness, palpitations, or shortness of breath. Vital signs reviewed and stable. General: Nontoxic, no distress and appears stated age. Derm: Skin warm and dry, normal coloration for ethnicity. Head: Atraumatic, normocephalic and symmetric. Eyes: EOMs intact, no lid lag, and anicteric sclera Mouth: no lip lesions, mucus membranes moist Cardiovascular: regular rate and rhythm with normal S1S2, systolic murmur, positive posterior tibial pulses bilaterally, and cap refill < 2 seconds. Lungs: Respirations even, regular, and unlabored on room air. Lungs CTA bilaterally, no rhonchi, no rales, no wheezing, and no accessory muscle usage. Abdominal: soft, nontender to palpation, no guarding, no appreciable organomega ly Ext: ROM intact. No gross muscle atrophy, no edema, no contractures Neuro: Speech clear, face symmetrical and CN II-XII grossly intact with no noted focal neuro deficits Psych: Alert and oriented to person, place, time, and situation. Appropriate and pleasant affect. Assessment and Plan of Care: Chest pain, rule out acute coronary event History of CAD with previous stenting Hypertension Hyperlipidemia -Cardiology consult, appreciate further recommendations -Telemetry monitoring -Trend troponins -Cardiac diet, NPO at midnight -Patient to be placed on aspirin 3 and 25 mg daily and to continue cardiac medication regimen with metoprolol and pravastatin. -Lipid profile with a.m. labs. -Echocardiogram revealing preserved EF of 55-60% with no significant valvular or structural abnormalities. CODE STATUS: Full code DVT prophylaxis: Heparin Discussed with: Patient Anticipated discharge date: 1-[address]: Home A total of 45 minutes was spent on the care of this complex patient more than 50% of the time was spent in counseling and care coordination. I reviewed the documentation as provided by the KIMBER above, who is the original author of this note. I agree with the documented assessment and plan, with the following changes: none Objective - Vital Signs Vital signs: Vital Signs Temp 97.8 F 06/13/22 07:00 Pulse 62 06/13/22 07:00 Resp 14 06/13/22 07:00 BP 135/82 06/13/22 07:00 Pulse Ox 95 06/13/22 07:00 FiO2 Intake & Output 06/12/22 06/13/22 06/13/22 18:59 06:59 18:59 Weight 129.274 kg Other: # Voids 2 - Labs CBC & Chem 7: 06/13/22 04:40 06/13/22 04:40
[2022-06-13] MEDS ORDERED: ALPRAZolam 0.5 MG TAB PO PRN (10:47)
[2022-06-13] MEDS ORDERED: ALPRAZolam 0.25 MG TAB PO PRN (10:47)
[2022-06-13] MEDS ORDERED: SODIUM CHLORIDE 0.9% 1,000 ML in EMPTY BAG 1 BAG IV SCH (11:00)
[2022-06-13 12:12] LABS: Glucose,Whole Blood 97 mg/dL (70-110)
[2022-06-13] MEDS ORDERED: VERAPAMIL 2.5 MG/ML 2 ML AMP ONE (12:42)
[2022-06-13] MEDS ORDERED: HEPARIN SODIUM 1,000 UN/ML (10ML VL) ONE ×2 (12:57→13:17)
[2022-06-13] MEDS ORDERED: IV FLUID CONTINUATION 1,000 ML IV ONE (13:00)
[2022-06-13] MEDS ORDERED: LIDOCAINE 1% INJ 10MG/ML (5 ML VIAL-PF) SQ ONE (13:00)
[2022-06-13] MEDS: MIDAZOLAM 2 MG/2 ML VIAL IV ONE ×4 (13:00→13:28)
[2022-06-13] MEDS ORDERED: VERAPAMIL SYRINGE (5 MG/10 ML) INTRAARTER ONE (13:02)
[2022-06-13] MEDS ORDERED: fentaNYL (PF) 50 MCG/ML 2 ML AMP ONE (13:03)
[2022-06-13] MEDS: fentaNYL (PF) 50 MCG/ML 2 ML AMP IV ONE ×2 (13:04→13:31)
[2022-06-13] MEDS: HEPARIN SODIUM 1,000 UN/ML (10ML VL) IV ONE ×2 (13:09→13:18)
[2022-06-13] MEDS ORDERED: HEPARIN SODIUM 1,000 UN/ML (10ML VL) IV ONE (13:18)
[2022-06-13] MEDS ORDERED: CLOPIDOGREL 75 MG TAB ONE (13:18)
[2022-06-13] MEDS ORDERED: CLOPIDOGREL 75 MG TAB PO ONE (13:20)
[2022-06-13] MEDS ORDERED: IOPAMIDOL-370 125ML BTL INJ ONE (13:38)
[2022-06-13] MEDS ORDERED: MIDAZOLAM 2 MG/2 ML VIAL IV ONE (13:52)
[2022-06-13] MEDS ORDERED: MAG HYDROX/AL HYDROX/SIMETH 30 ML CUP PO PRN (14:02)
[2022-06-13] MEDS ORDERED: ATROPINE SULFATE 0.1 MG/ML 10ML SYRINGE IV PRN (14:02)
[2022-06-13] MEDS ORDERED: RX INFO: IV CONTRAST WAS GIVEN 1 EACH MISC MISCELLANE PRN (14:02)
[2022-06-13] MEDS ORDERED: ZOLPIDEM 5 MG TAB PO PRN (14:02)
[2022-06-13] MEDS ORDERED: IOPAMIDOL-370 100ML BTL INJ ONE (14:11)
--- NOTE | 2022-06-13 18:17 | P.PCN ---
Date of Procedure: 06/13/22 Operative Findings: CARDIAC CATHETERIZATION AND PERCUTANEOUS CORONARY INTERVENTION PERFORMING PHYSICIAN: Nj Mccormick MD, [facility] PROCEDURE PERFORMED: 1. Selective right and left coronary angiogram 2. Left heart catheterization 3. Successful stenting of proximal LAD using 3.25 x 28 Xience LINO which was postdilated using 3.5 mm NC balloon with an excellent angiographic results 4. Intravascular ultrasound of the left anterior descending artery INDICATION: This is a 71-year-old gentleman with CAD and prior stenting of the RCA. He presented to the hospital with a chest discomfort and continues to have ongoing chest discomfort concerning for angina. In the light of that a heart catheterization was advised COMPLICATION: None APPROACH: Right radial artery LEVEL OF SEDATION: Moderate with the sedation time off 58 minutes PROCEDURE DESCRIPTION: After obtaining an informed consent the patient was brought to the cardiac cath lab technologist. The right radial artery was cannulated using puncture technique, the micropuncture wire passed easily then I placed a 6-Ukrainian sheath at the right radial artery to give the patient 2 mg of verapamil IA and initially 6000 use of heparin intravenous and subsequently another 6000 use of heparin given with continuous ACT monitoring throughout the procedure. Selective right and left coronary angiogram performed using JR4 and JL 3.5 catheters. Left heart catheterization was performed using the JR4 catheter which cross the aortic valve then I did pulled back across the valve. After that I did intervene on the LAD. SELECTIVE CORONARY ANGIOGRAM: The right coronary artery: Large-caliber vessel and a dominant vessel. The proximal RCA has mild disease only. The mid RCA is a stented with mild in-stent restenosis. The RCA distally has mild disease and gives rises into PDA and PLV branches. The PLV branch is a stented and the stent is patent. Left main: Its angiographically normal. Bifurcates into the LCx and LAD The left circumflex: Large caliber vessel and nondominant vessel. The proximal LCx has mild to moderate disease only with gives rises into an OM1 which appeared to be angiographically normal. Distal left circumflex is normal and gives rises into an appointment to which appeared to be angiographically normal as well. The left anterior descending artery: Large caliber vessel. The proximal LAD has long tubular lesion appears to be in the range of 70-80%. The mid LAD has mild disease only. The LAD distally appears to be angiographically normal. HEMODYNAMICS: The LVEDP was about 8 mmHg was no significant gradient across aortic valve PCI OF THE LAD: Anticoagulation was initiated using heparin with continuous ACT monitoring throughout the case. Initially I engaged the left main using JL 3.5 guiding catheter but the catheter was not seated well so I switched into an EBU 3.5 guiding catheter. I did wire the LAD using a run-through wire. Subsequently I did predilatation using 3.0 x 15 mm balloon before I deployed 3.25 x 28 mm stent where the stent was positioned under fluoroscopy guidance and deployed under its nominal pressure. I postdilated the stent using 3.5 mm NC balloon at the proximal and midportion of its. Subsequently intravascular ultrasound was performed and showed that the stent was well opposed to the wall. At that point the procedure was completed without any complication. The final angiogram showed LAINE 3 flow. CONCLUSION: #1 Severe disease involving the proximal LAD. I did perform successful stenting of the proximal LAD #2 Patent stent in the PLV branch of the right coronary artery POSTPROCEDURE MANAGEMENT: #1 dual antiplatelet therapy #2 aggressive cholesterol control #3 follow-up with the patient
[2022-06-13] MEDS: PANTOPRAZOLE 40 MG TABLET PO SCH (20:28)
[2022-06-13] MEDS: PRAVASTATIN SODIUM 80 MG TAB PO SCH (20:42)
[2022-06-14] MEDS: HYDROcodone/APAP 10-325MG 1 EACH TAB PO PRN ×2 (04:03→10:11)
[2022-06-14] MEDS ORDERED: HEPARIN SODIUM,PORCINE 2,500 UNIT in SODIUM CHLORIDE 0.9% 250 ML IRRIGATION PRN (07:00)
[2022-06-14] MEDS ORDERED: HEPARIN SODIUM,PORCINE 10,000 UNIT in SODIUM CHLORIDE 0.9% 1,000 ML IRRIGATION PRN (07:00)
[2022-06-14 07:57] VITALS: BP 131/81; PULSE 60; RESP 16; TEMP 97.6
--- NOTE | 2022-06-14 08:04 | P.PN ---
Subjective Progress Note Date: 06/14/22 Principal diagnosis: Chest pain The patient is a pleasant 71-year-old gentleman with a past medical history significant for coronary artery disease with prior stenting who was admitted to the hospital with a chest discomfort concerning for angina. He underwent heart catheterization and stenting of the LAD. He was seen this morning. He is chest pain-free. From the cardiac vascular standpoint of view, the patient can be discharged home on dual antiplatelet therapy. I'll follow-up with the patient in a week in the office Objective - Vital Signs Vital signs: Vital Signs Temp 97.6 F 06/14/22 07:00 Pulse 60 06/14/22 07:00 Resp 16 06/14/22 07:00 BP 131/81 06/14/22 07:00 Pulse Ox 96 06/14/22 07:00 FiO2 Intake & Output 06/13/22 06/14/22 06/14/22 18:59 06:59 18:59 Intake Total 510 Balance 510 Intake: IV 150 Oral 360 Other: # Voids 1 2 - Constitutional General appearance: Present: no acute distress - Respiratory Respiratory: bilateral: CTA - Cardiovascular Rhythm: regular Heart sounds: normal: S1, S2 - Labs CBC & Chem 7: 06/13/22 04:40 06/13/22 04:40 Assessment and Plan Assessment: Assessment #1 ongoing chest discomfort. Status post PCI of the LAD #2 CAD with prior stenting #3 multiple risk factors for CAD Plan #1 the patient can be discharged home on dual antiplatelet therapy Follow-up with the patient
[2022-06-14 08:08] LABS: Basophils % (A) 0 %; Eosinophils # (A) 0.1 k/uL (0-0.7); Eosinophils % (A) 2 %; HCT 42.6 % (39.0-53.0); Lymphocytes # (A) 0.9 k/uL (1.0-4.8); Lymphocytes % (A) 19 %; MCH 30.6 pg (25.0-35.0); MCHC 32.9 g/dL (31.0-37.0); Mean Platelet Volume 7.3; Monocytes # (A) 0.6 k/uL (0-1.0); Monocytes % (A) 12 %; Neutrophils # (A) 3.2 k/uL (1.3-7.7); Neutrophils % (A) 64 %; Platelet Count 163 k/uL (150-450); RBC 4.57 m/uL (4.30-5.90); RDW 12.3 % (11.5-15.5)
[2022-06-14 08:22] LABS: African American GFR (CKD) >90 (>60 ml/min/1.73 sqM); Anion Gap 10 mmol/L; Blood Urea Nitrogen 16 mg/dL (9-20); Calcium 9.3 mg/dL (8.4-10.2); Carbon Dioxide 23 mmol/L (22-30); Chloride 104 mmol/L (98-107); Glucose 109 mg/dL (74-99); Non-African American GFR(CKD) 88 (>60 ml/min/1.73 sqM); Potassium 4.4 mmol/L (3.5-5.1); Sodium 137 mmol/L (137-145)
[2022-06-14] MEDS: ASPIRIN 325 MG TAB PO SCH (08:35)
[2022-06-14] MEDS: METOPROLOL TARTRATE 25 MG TAB PO SCH (08:36)
[2022-06-14] MEDS: HEPARIN SODIUM,PORCINE/PF 5,000 UNIT/0.5 ML SYRINGE SQ SCH (08:36)
[2022-06-14] MEDS ORDERED: CLOPIDOGREL 75 MG TAB PO SCH (09:00)
--- NOTE | 2022-06-14 13:50 | P.DS ---
Providers Date of admission: 06/13/22 16:27 Expected date of discharge: 06/14/22 Attending physician: Maira Goldman MD Consults: 06/12/22 08:03 Consult Physician Urgent Consulting Provider: Nj Mccormick Consult Reason/Comments: chest pain Do you want consulting provider notified?: Yes 06/13/22 14:02 Consult Physician Routine Consulting Provider: [facility] Consult Reason/Comments: Post Interventional patient Do you want consulting provider notified?: Already Contacted Primary care physician: Jai Hurley [facility] Course: Discharge Diagnosis: Chest pain. 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 Patient underwent angioplasty with successful stenting of the proximal LAD and was started on dual antiplatelet therapy with Plavix and aspirin. This resulted in full resolution of previously reported chest discomfort. Patient is medically stable and is being discharged home and to follow-up with PCP in 1-2 days and cardiology in 1 week. History of CAD with previous stenting. Patient again found to have severe CAD involving the proximal LAD. Patient to continue dual antiplatelet therapy and follow up with cardiology. Hypertension. Monitor vital signs and continue daily medication regimen with metoprolol Hyperlipidemia. Continue heart healthy and carb consistent diet and continue daily medication regimen with pravastatin 80 mg nightly. Hospital Course: Patient is a very pleasant 71-year-old male with a past medical history of CAD with stents, hypertension, hyperlipidemia, GERD, and obstructive sleep apnea CPAP dependent. He presented to the emergency department with a chief complaint of chest pain/discomfort. Patient reports he has been experiencing intermittent chest pain/discomfort described as a tightness accompanied by shortness of breath off and on for the past couple of weeks which she believed improved with rest and worsened with activity. 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 Patient reports this morning this pain was severe and awoke him from sleep around 6:30 AM and was again accompanied by nausea and shortness of breath. Patient denies having any recent infections or exposure to known ill contacts, fevers, chills, diaphoresis, palpitations, cough or congestion, abdominal pain, vomiting, or experiencing any numbness/tingling/weakness/swelling in his extremities. He underwent full evaluation in the emergency department. Vital signs were stable. CBC and CMP were unremarkable. Troponin was negative at less than 0.012 and pro-BMP was 55. EKG revealed normal sinus rhythm at 71 bpm with no noted T-wave or ST abnormalities showing no signs of acute ischemia. Chest x-ray was negative for acute cardiopulmonary process. Patient was admitted under our services with consultation to cardiology. Troponins trended overnight and all remain negative at less than 0.0123 draws. Lipid profile was unremarkable. Echocardiogram revealing preserved EF of 55-60% with no significant valvular or structural abnormalities. 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 Patient underwent angioplasty with successful stenting of the proximal LAD and started on dual antiplatelet therapy with Plavix and aspirin. Patient again monitored overnight and has had complete resolution of previously reported chest pain/discomfort. Cardiology recommending continuation of dual antiplatelet therapy and to follow-up in their office in one week. Patient is medically stable for discharge home with his at this time. Physical exam: Cardiac cath access site right wrist with small minimal bruising, no hematoma. Patient denies any numbness or weakness of right hand. Patient also denies having any chest pain, palpitations, or shortness of breath at this time. Vital signs reviewed and stable. Temp 97.6F, BP 131/81, heart rate 60, respiratory rate 16, and SpO2 of 96% on room air. General: Nontoxic, no distress and appears stated age. Derm: Skin warm and dry, normal coloration for ethnicity. Head: Atraumatic, normocephalic and symmetric. Eyes: EOMs intact, no lid lag, and anicteric sclera Mouth: no lip lesions, mucus membranes moist Cardiovascular: regular rate and rhythm with normal S1S2, systolic murmur, positive posterior tibial pulses bilaterally, and cap refill < 2 seconds. Lungs: Respirations even, regular, and unlabored on room air. Lungs CTA bilaterally, no rhonchi, no rales, no wheezing, and no accessory muscle usage. Abdominal: soft, nontender to palpation, no guarding, no appreciable organomegaly Ext: ROM intact. No gross muscle atrophy, no edema, no contractures Neuro: Speech clear, face symmetrical and CN II-XII grossly intact with no noted focal neuro deficits Psych: Alert and oriented to person, place, time, and situation. Appropriate and pleasant affect. A total of 35 minutes of time were spent preparing this complex discharge summary. Pt was discharged on 06/14/22 at 9:21 AM. I reviewed the documentation as provided by the KIMBER above, who is the original author of this note. I agree with the documented assessment and plan, with the following changes: none Patient Condition at Discharge: Stable Plan - Discharge Summary Discharge Rx Participant: No New Discharge Prescriptions: New Clopidogrel [Plavix] 75 mg PO DAILY 30 Days #30 tab Continue Metoprolol Tartrate [Lopressor] 25 mg PO BID Escitalopram [Lexapro] 20 mg PO HS Aspirin EC [Ecotrin Low Dose] 81 mg PO HS Nitroglycerin Sl Tabs [Nitrostat] 0.4 mg SUBLINGUAL Q5M PRN #25 tab PRN Reason: Chest Pain HYDROcodone/APAP 10-325MG [[place] 10-325] 1 tab PO Q6HR PRN PRN Reason: Pain Naloxone HCl 4 mg NS ONCE PRN PRN Reason: OVERDOSE Omeprazole [PriLOSEC] 20 mg PO HS diazePAM [Valium] 10 mg PO HS PRN PRN Reason: FLYING Pravastatin Sodium [Pravachol] 80 mg PO HS Discharge Medication List Metoprolol Tartrate [Lopressor] 25 mg PO BID 04/08/14 [History] Escitalopram [Lexapro] 20 mg PO HS 03/11/18 [History] Aspirin EC [Ecotrin Low Dose] 81 mg PO HS 04/22/19 [History] Nitroglycerin Sl Tabs [Nitrostat] 0.4 mg SUBLINGUAL Q5M PRN #25 tab 05/08/19 [Rx] HYDROcodone/APAP 10-325MG [[place] 10-325] 1 tab PO Q6HR PRN 03/31/22 [History] Omeprazole [PriLOSEC] 20 mg PO HS 03/31/22 [History] Naloxone HCl 4 mg NS ONCE PRN 06/12/22 [History] Pravastatin Sodium [Pravachol] 80 mg PO HS 06/12/22 [History] diazePAM [Valium] 10 mg PO HS PRN 06/12/22 [History] Clopidogrel [Plavix] 75 mg PO DAILY 30 Days #30 tab 08/17/22 [Rx] Follow up Appointment(s)/Referral(s): Nj Mccormick MD [STAFF PHYSICIAN] - 06/16/22 8:15 am Jai Rodgers MD [Primary Care Provider] - 1-2 days Patient Instructions/Handouts: Left Heart Catheterization (DC) Activity/Diet/Wound Care/Special Instructions: Cardiology Instructions After Cardiac Catheterization with Stent Placement: 1. Aspirin as anti-platelet therapy - Aspirin lessens the chance of heart attack and stroke. It helps prevent blood clots from forming, allowing the blood to flow more easily. Each day, you will take one 81 mg (non-enteric coated) tablet daily. You will be taking aspirin as a lifelong medication. Do not stop unless instructed by your doctor. 2. Anti-platelet Therapy. -In addition to aspirin, you will take ONE of the following anti-platelet medications daily. This will help prevent a clot from forming in your stent: Plavix (clopidogrel) -You will need to take your anti-platelet medicine every day for 12 months -Please consult your heart doctor before you stop this medicine. -They may want you to continue for a longer period of time. 3. Statins -A statin medication lowers cholesterol levels in the blood. This helps slow the progression of heart disease. - Please take your statin medication as prescribed by your doctor. -You may be taking one of the following statins: Simvastatin Other Medications: -Beta sarita. (Your Medication: Metoprolol) Is a medication that protects your heart from stress and can prevent future heart attacks. It can slow your heart rate. It can take weeks for your body to get used to a beta sarita. The dose may need to be changed a few times as your body adjusts Do not stop taking these medicines without talking to your chef manager. -Take all other medicines as directed by your doctor. Do not take any extra aspirin or ibuprofen. They can increase your risk of bleeding. Many [id number] drugs contain aspirin. If you are unsure about what the drug contains, check with your pharmacist before taking it. -For mild discomfort, you may take plain Tylenol (acetaminophen). Follow dose directions, but do not take more than 4,000 mg of acetaminophen in 24 hours. Contact your doctor right away or go to the nearest hospital Emergency Room if you have: -Severe angina or chest pain. (This may be a sign of a problem with your stent.) -Excessive bruising, blood in urine/stool or black tarry stools. Healthy LifeStyle It is important to keep a heart healthy lifestyle. This can improve your long- term health and decrease your risk for heart attacks. -Managing your blood cholesterol, blood pressure, weight, and stress. -The importance of regular exercise. -Heart Healthy Diet: Include more plants in your diet. Eat lots of fresh v egetables and fresh fruits. Eat good fats: plant based oils, avocado, nuts, beans, legumes. Eat more seafood. Limit Meat. Switch to whole grains. -Avoid fried foods and animal fats and processed meats Follow up with [facility] [place] [phone] Thank you for allowing us to participate in your care, it was truly a pleasure having you for our patient!!! Discharge Disposition: HOME SELF-CARE
== END 2022-06-14 11:39 | disposition home or self-care (01) | DRG 247 ==
LOC: EC 06:00 → 6NMEDSUR 08:11 → OBSVTOIN 06-13 16:27
PROVIDERS: ADMIT Internal Medicine; ATTEND Internal Medicine
PROC: B240ZZ3 Ultrasonography of Single Coronary Artery, Intravascular (ICD-10-PCS; 2022-06-13)
PROC: B240ZZ3 Ultrasonography of Single Coronary Artery, Intravascular (ICD-10-PCS; 2022-06-13)
PROC: 027034Z Dilation of Coronary Artery, One Artery with Drug-eluting Intraluminal Device, Percutaneous Approach (ICD-10-PCS; principal; 2022-06-13 12:30)
PROC: 4A023N7 Measurement of Cardiac Sampling and Pressure, Left Heart, Percutaneous Approach (ICD-10-PCS; 2022-06-13 12:30)
PROC: B2111ZZ Fluoroscopy of Multiple Coronary Arteries using Low Osmolar Contrast (ICD-10-PCS; 2022-06-13 12:30)
DX: I25.10 Atherosclerotic heart disease of native coronary artery without angina pectoris (principal); Z79.82 Long term (current) use of aspirin; I10 Essential (primary) hypertension; I08.1 Rheumatic disorders of both mitral and tricuspid valves; E78.5 Hyperlipidemia, unspecified; Z79.899 Other long term (current) drug therapy; Z85.828 Personal history of other malignant neoplasm of skin; Z87.891 Personal history of nicotine dependence; Z96.643 Presence of artificial hip joint, bilateral; Z82.49 Family history of ischemic heart disease and other diseases of the circulatory system
CPT/HCPCS: 36415; 71046; 80048; 80053; 80061; 83735; 83880; 84484; 85025; 92978; 93005; 93306; 93458; 96374; 99285

== ENCOUNTER 2023-04-08 09:19 | Emergency (ER) | payer MEDICARE, BC ==
[2023-04-08 09:25] VITALS: RESP 18; TEMP 98.5
--- NOTE | 2023-04-08 10:53 | ED ---
General Adult HPI - General Chief complaint: Recheck/Abnormal Lab/Rx Stated complaint: high blood pressure Time Seen by Provider: 04/08/23 10:25 Source: patient, RN notes reviewed, old records reviewed Mode of arrival: ambulatory Limitations: no limitations - History of Present Illness Initial comments: This is a 72-year-old male who presents emergency Department stating he felt unwell this morning so he took his blood pressures blood pressure was 196/123 and that was very concerning to him as he took his blood pressure meds about an hour prior. Patient states lately he's been getting some high readings and that is been concerning. Patient denies any headache patient denies any numbness weakness. Patient denies any blurred vision. Patient denies any chest pain palpitations difficulty breathing or shortness of breath per patient denies any recent fever chills or cough per patient denies any abdominal pain. Patient currently states he is asymptomatic - Related Data Home Medications Medication Instructions Recorded Confirmed Metoprolol Tartrate [Lopressor] 25 mg PO BID 04/08/14 06/12/22 Escitalopram [Lexapro] 20 mg PO HS 03/11/18 06/12/22 Aspirin EC [Ecotrin Low Dose] 81 mg PO HS 04/22/19 06/12/22 HYDROcodone/APAP 10-325MG [[place] 1 tab PO Q6HR PRN 03/31/22 06/12/22 10-325] Omeprazole [PriLOSEC] 20 mg PO HS 03/31/22 06/12/22 Naloxone HCl 4 mg NS ONCE PRN 06/12/22 06/12/22 Pravastatin Sodium [Pravachol] 80 mg PO HS 06/12/22 06/12/22 diazePAM [Valium] 10 mg PO HS PRN 06/12/22 06/12/22 Previous Rx's Medication Instructions Recorded Nitroglycerin Sl Tabs [Nitrostat] 0.4 mg SUBLINGUAL Q5M PRN #25 tab 05/08/19 Clopidogrel [Plavix] 75 mg PO DAILY 30 Days #30 tab 06/14/22 Allergies Allergy/AdvReac Type Severity Reaction Status Date / Time Penicillins Allergy Rash/Hives Verified 04/08/23 09:25 Review of Systems ROS Statement: Those systems with pertinent positive or pertinent negative responses have been documented in the HPI. ROS Other: All systems not noted in ROS Statement are negative. Past Medical History Past Medical History: Coronary Artery Disease (CAD), Cancer, GERD/Reflux, Hyperl ipidemia, Hypertension, Osteoarthritis (OA), Sleep Apnea/CPAP/BIPAP Additional Past Medical History / Comment(s): Hiatal hernia, hx skin cancer 2006, hx fractured back, uses CPAP. c/o pain w/ swallowing occ. History of Any Multi-Drug Resistant Organisms: None Reported Past Surgical History: Back Surgery, Heart Catheterization With Stent, Joint Replacement, Orthopedic Surgery Additional Past Surgical History / Comment(s): Microdiscectomy, bilateral total hip replacements, deviated septum repair, undescended testicle surgery, 3 cardiac stents and later 2 more stents, arthroscopy bilateral knees, EGD, COLONOSCOPY. Total bilat knees. Past Anesthesia/Blood Transfusion Reactions: No Reported Reaction Date of Last Stent Placement:: 2008 Past Psychological History: No Psychological Hx Reported Smoking Status: Former smoker Past Alcohol Use History: None Reported Past Drug Use History: None Reported - Past Family History Father Family Medical History: CVA/TIA Sister(s) Family Medical History: Cancer Additional Family Medical History / Comment(s): Lung Cancer, mets to brain. Mother Family Medical History: Myocardial Infarction (CA) Additional Family Medical History / Comment(s): Mother lived to be 104 yrs old. General Exam - General Exam Comments Initial Comments: GENERAL: Patient is well-developed and well-nourished. Patient is nontoxic and well- hydrated and is in mild distress. ENT: Neck is soft and supple. No significant lymphadenopathy is noted. Oropharynx is clear. Moist mucous membranes. Neck has full range of motion without eliciting any pain. EYES: The sclera were anicteric and conjunctiva were pink and moist. Extraocular movements were intact and pupils were equal round and reactive to light. Eyelids were unremarkable. PULMONARY: Unlabored respirations. Good breath sounds bilaterally. No audible rales rhonchi or wheezing was noted. CARDIOVASCULAR: There is a regular rate and rhythm without any murmurs gallops or rubs. ABDOMEN: Soft and nontender with normal bowel sounds. SKIN: Skin is clear with no lesions or rashes and otherwise unremarkable. NEUROLOGIC: Patient is alert and oriented x3. Cranial nerves II through XII are grossly intact. Motor and sensory are also intact. Normal speech, volume and content. Symmetrical smile. MUSCULOSKELETAL: Normal extremities with adequate strength and full range of motion. LYMPHATICS: No significant lymphadenopathy is noted PSYCHIATRIC: Normal psychiatric evaluation. Limitations: no limitations Course Vital Signs 04/08/23 04/08/23 04/08/23 09:23 11:16 11:21 Temperature 98.5 F Pulse Rate 59 L 75 67 Pulse Rate [ 75 Radial] Respiratory 18 18 18 Rate Blood Pressure 154/78 135/82 142/69 O2 Sat by Pulse 99 97 96 Oximetry 04/08/23 12:17 Temperature Pulse Rate 51 L Pulse Rate [ Radial] Respiratory 18 Rate Blood Pressure 129/77 O2 Sat by Pulse 98 Oximetry Medical Decision Making - Medical Decision Making EKG was interpreted by myself shows a sinus bradycardia at 46 bpm IN interval is 208 QRSs 102 QT interval 450 QTC is 411. Patient's EKG shows no ST segment elevation or depression. Was pt. sent in by a medical professional or institution ([facility], [employer], urgent care, hospital, or long-term...) When possible be specific @ -No Did you speak to anyone other than the patient for history (EMS, parent, family, police, friend...)? What history was obtained from this source @ -No Did you review nursing and triage notes (agree or disagree)? Why? @ -I reviewed and agree with nursing and triage notes Were old charts reviewed (outside hosp., previous admission, EMS record, old EKG, old radiological studies, urgent care reports/EKG's, long-term records)? Report findings @ -No old charts were reviewed Differential Diagnosis (chest pain, altered mental status, abdominal pain women, abdominal pain men, vaginal bleeding, weakness, fever, dyspnea, syncope, headache, dizziness, GI bleed, back pain, seizure, CVA, palpatations, mental h ealth, musculoskeletal)? @ -High blood pressure, palpitations, pneumonia, this is not an all inclusive list EKG interpreted by me (3pts min.). @ -As above X-rays interpreted by me (1pt min.). @ -None done CT interpreted by me (1pt min.). @ -None done U/S interpreted by me (1pt. min.). @ -None done What testing was considered but not performed or refused? (CT, X-rays, U/S, labs)? Why? @ -None What meds were considered but not given or refused? Why? @ -None Did you discuss the management of the patient with other professionals (p narafessionals i.e. , PA, [employer], lab, RT, psych nurse, social service liaison, pst manager, teacher, certified juvenile probation officer, hospice case manager)? Give summary @ -No Was smoking cessation discussed for >3mins.? @ -No Was critical care preformed (if so, how long)? @ -No Were there social determinants of health that impacted care today? How? (Homelessness, low income, unemployed, alcoholism, drug addiction, transpor tation, low edu. Level, literacy, decrease access to med. care, skilled nursing, rehab)? @ -No Was there de-escalation of care discussed even if they declined (Discuss DNR or withdrawal of care, Hospice)? DNR status @ -No What co-morbidities impacted this encounter? (DM, HTN, Smoking, COPD, CAD, Cancer, CVA, ARF, Chemo, Hep., AIDS, mental health diagnosis, sleep apnea, morbid obesity)? @ -None Was patient admitted / discharged? Hospital course, mention meds given and route, prescriptions, significant lab abnormalities, going to OR and other pertinent info. @ -Patient's blood pressure was monitored in the emergency department and it was determined that her blood pressure was reading a relatively normal blood pressure and his blood pressure cuff which is new was reading all high readings. Undiagnosed new problem with uncertain prognosis? @ -No Drug Therapy requiring intensive monitoring for toxicity (Heparin, Nitro, Insulin, Cardizem)? @ -No Were any procedures done? @ -No Diagnosis/symptom? @ -Hypertension Acute, or Chronic, or Acute on Chronic? @ -Acute Uncomplicated (without systemic symptoms) or Complicated (systemic symptoms)? @ -Complicated Side effects of treatment? @ -No Exacerbation, Progression, or Severe Exacerbation? @ -No Poses a threat to life or bodily function? How? (Chest pain, [place], CA, pneumonia, PE, COPD, DKA, ARF, appy, cholecystitis, CVA, Diverticulitis, Homicidal, Suicidal, threat to staff... and all critical care pts) @ -No - Lab Data Result diagrams: 04/08/23 11:12 04/08/23 11:12 Lab Results 06/11/23 06/11/23 06/11/23 Range/Units 11:12 11:12 11:12 WBC 4.5 (3.8-10.6) k/uL RBC 4.34 (4.30-5.90) m/uL Hgb 13.6 (13.0-17.5) gm/dL Hct 40.0 (39.0-53.0) % MCV 92.2 (80.0-100.0) fL MCH 31.3 (25.0-35.0) pg MCHC 33.9 (31.0-37.0) g/dL RDW 12.6 (11.5-15.5) % Plt Count 152 (150-450) k/uL MPV 7.5 Neutrophils % 67 % Lymphocytes % 21 % Monocytes % 8 % Eosinophils % 1 % Basophils % 0 % Neutrophils # 3.0 (1.3-7.7) k/uL Lymphocytes # 0.9 L (1.0-4.8) k/uL Monocytes # 0.4 (0-1.0) k/uL Eosinophils # 0.1 (0-0.7) k/uL Basophils # 0.0 (0-0.2) k/uL Sodium 137 (137-145) mmol/L Potassium 4.6 (3.5-5.1) mmol/L Chloride 105 (98-107) mmol/L Carbon Dioxide 27 (22-30) mmol/L Anion Gap 5 mmol/L BUN 18 (9-20) mg/dL Creatinine 0.83 (0.66-1.25) mg/dL Est GFR (CKD-EPI)AfAm >90 (>60 ml/min/1.73 sqM) Est GFR (CKD-EPI)NonAf 89 (>60 ml/min/1.73 sqM) Glucose 94 (74-99) mg/dL Calcium 8.8 (8.4-10.2) mg/dL Magnesium 2.2 (1.6-2.3) mg/dL Total Bilirubin 0.6 (0.2-1.3) mg/dL AST 30 (17-59) U/L ALT 27 (4-49) U/L Alkaline Phosphatase 56 (38-126) U/L Troponin I <0.012 (0.000-0.034) ng/mL Total Protein 7.3 (6.3-8.2) g/dL Albumin 4.3 (3.5-5.0) g/dL Disposition Clinical Impression: Hypertension Disposition: HOME SELF-CARE Condition: Good Instructions (If sedation given, give patient instructions): Hypertension (ED) Is patient prescribed a controlled substance at d/c from ED?: No Referrals: Kari Lopez MD [Primary Care Provider] - 1-2 days Time of Disposition: 12:23
[2023-04-08 11:33] LABS: Basophils % (A) 0 %; Eosinophils # (A) 0.1 k/uL (0-0.7); Eosinophils % (A) 1 %; HGB 13.6 gm/dL (13.0-17.5); Lymphocytes # (A) 0.9 k/uL (1.0-4.8); Lymphocytes % (A) 21 %; MCH 31.3 pg (25.0-35.0); MCHC 33.9 g/dL (31.0-37.0); MCV 92.2 fL (80.0-100.0); Mean Platelet Volume 7.5; Monocytes # (A) 0.4 k/uL (0-1.0); Monocytes % (A) 8 %; Neutrophils % (A) 67 %; Platelet Count 152 k/uL (150-450); RBC 4.34 m/uL (4.30-5.90); RDW 12.6 % (11.5-15.5); WBC 4.5 k/uL (3.8-10.6)
[2023-04-08 11:41] LABS: ALT 27 U/L (4-49); AST 30 U/L (17-59); African American GFR (CKD) >90 (>60 ml/min/1.73 sqM); Albumin 4.3 g/dL (3.5-5.0); Alkaline Phosphatase 56 U/L (38-126); Anion Gap 5 mmol/L; Blood Urea Nitrogen 18 mg/dL (9-20); Calcium 8.8 mg/dL (8.4-10.2); Carbon Dioxide 27 mmol/L (22-30); Chloride 105 mmol/L (98-107); Glucose 94 mg/dL (74-99); Magnesium 2.2 mg/dL (1.6-2.3); Non-African American GFR(CKD) 89 (>60 ml/min/1.73 sqM); Potassium 4.6 mmol/L (3.5-5.1); Sodium 137 mmol/L (137-145); Total Bilirubin 0.6 mg/dL (0.2-1.3); Total Protein 7.3 g/dL (6.3-8.2)
[2023-04-08 12:19] VITALS: BP 129/77; PULSE 51
== END 2023-04-08 12:28 | disposition home or self-care (01) ==
LOC: EC 09:19
DX: I10 Essential (primary) hypertension (principal); I25.10 Atherosclerotic heart disease of native coronary artery without angina pectoris; K21.9 Gastro-esophageal reflux disease without esophagitis; E78.5 Hyperlipidemia, unspecified; M19.90 Unspecified osteoarthritis, unspecified site; G47.30 Sleep apnea, unspecified; Z87.891 Personal history of nicotine dependence; Z79.1 Long term (current) use of non-steroidal anti-inflammatories (NSAID); Z79.899 Other long term (current) drug therapy; Z79.82 Long term (current) use of aspirin; Z88.0 Allergy status to penicillin
CPT/HCPCS: 36415; 80053; 83735; 84484; 85025; 93005; 99283